=== PATIENT | female | born 1980 | race American Indian/Alaskan Native ===

== ENCOUNTER 2018-11-04 09:35 | Emergency (ER) | payer BC ==
[2018-11-04 09:42] VITALS: BP 138/85
[2018-11-04 12:03] LABS: Basophils % (Auto) 0.3 % (0.0-1.8); Eosinophils # (Auto) 0.1 K/mm3 (0.0-0.4); Hematocrit 27.4 % (30.3-42.9); Hemoglobin 8.4 gm/dl (10.1-14.3); Lymphocytes % (Auto) 28.7 % (13.4-35.0); Mean Corpuscular HGB Conc 31 % (30-34); Monocytes # (Auto) 0.4 K/mm3 (0.0-0.8); Monocytes % (Auto) 6.1 % (0.0-7.3); Platelet Count 414 K/mm3 (140-440); Red Blood Count 4.48 M/mm3 (3.65-5.03)
[2018-11-04 12:05] LABS: Mean Corpuscular Volume 61 fl (79-97); Red Cell Distribution Width 21.2 % (13.2-15.2)
[2018-11-04 12:21] LABS: Bilirubin,Urine NEG (Negative); Blood,Urine NEG (Negative); Color,Urine Yellow (Yellow); Hyaline Casts,Urine 1 /LPF; Mucus,Urine FEW /HPF; Urobilinogen,Urine < 2.0 mg/dL (<2.0)
[2018-11-04 12:23] LABS: BUN/Creatinine Ratio 12; Blood Urea Nitrogen 7 mg/dL (7-17); Calcium 9.8 mg/dL (8.4-10.2); Hemolysis Index 1
--- NOTE | 2018-11-04 13:15 | Emergency Department Report ---
ED General Adult HPI - General Chief complaint: Abdominal Pain Stated complaint: (L) ARM PAIN/STOMACH PAIN/DIABETES Time Seen by Provider: 11/04/18 11:28 Source: patient Mode of arrival: Ambulatory Limitations: No Limitations - History of Present Illness Initial comments: Patient is a 37 her affect female with multiple complaints today. Patient states that she is diabetic and her blood sugar is normally in the 200 range. She states that she chronically has pain in her bilateral arms and legs as a burning sensation. Patient believes she may have some diabetic nerve pain. Patient denies any swelling to the extremities or redness or fever. Patient states she has some mild suprapubic discomfort as well of more so for the last week. Patient has a history of heavy vaginal bleeding segment of fibroids. The patient states that she bled heavily several weeks ago but is currently not bleeding at this time. She has mild nausea. Patient denies any discharge or painful urination. Patient does state that she feels some increased thirst and feels cold and weak at times. Patient denies any chest pain or shortness of breath. Severity scale (0 -10): 8 - Related Data Home Medications Medication Instructions Recorded Confirmed Last Taken Insulin Degludec/Liraglutide 15 mg SQ QPM 04/23/18 04/23/18 Unknown [Xultophy 100 Unit-3.6MG/ml Pen] amLODIPine [Norvasc] 20 mg PO DAILY 04/23/18 04/23/18 Unknown metFORMIN [Glucophage] 1,000 mg PO BID 04/23/18 04/23/18 Unknown Previous Rx's Medication Instructions Recorded Last Taken Type Docusate Sodium [Colace] 100 mg PO BID #30 capsule 11/04/18 Unknown Rx Ferrous Sulfate [Feosol 325 MG tab] 325 mg PO BID #60 tablet 11/04/18 Unknown Rx HYDROcodone/APAP 5-325 [[place] 1 each PO Q4HR PRN #12 tablet 11/04/18 Unknown Rx 5/325] Allergies Allergy/AdvReac Type Severity Reaction Status Date / Time aspirin Allergy Rash Verified 04/23/18 15:26 ED Review of Systems ROS: Stated complaint: (L) ARM PAIN/STOMACH PAIN/DIABETES Other details as noted in HPI Comment: All other systems reviewed and negative ED Past Medical Hx - Past Medical History Previous Medical History?: Yes Hx Hypertension: Yes Hx Diabetes: Yes (oral meds) Hx Headaches / Migraines: Yes Hx Psychiatric Treatment: Yes (anxiety) Hx HIV: No Additional medical history: neuropathy, diabetic gastroparesis. ANEMIA. CARPAL TUNNEL. venous reflux disease. - Surgical History Past Surgical History?: Yes Additional Surgical History: D & C. LEFT GREAT TOE SURGERY - Social History Smoking Status: Never Smoker Substance Use Type: None - Medications Home Medications: Home Medications Medication Instructions Recorded Confirmed Last Taken Type Insulin Degludec/Liraglutide 15 mg SQ QPM 04/23/18 04/23/18 Unknown History [Xultophy 100 Unit-3.6MG/ml Pen] amLODIPine [Norvasc] 20 mg PO DAILY 04/23/18 04/23/18 Unknown History metFORMIN [Glucophage] 1,000 mg PO BID 04/23/18 04/23/18 Unknown History Docusate Sodium [Colace] 100 mg PO BID #30 capsule 11/04/18 Unknown Rx Ferrous Sulfate [Feosol 325 MG tab] 325 mg PO BID #60 tablet 11/04/18 Unknown Rx HYDROcodone/APAP 5-325 [[place] 1 each PO Q4HR PRN #12 tablet 11/04/18 Unknown Rx 5/325] ED Physical Exam - General Limitations: No Limitations General appearance: alert, in no apparent distress - Head Head exam: Present: atraumatic, normocephalic - Eye Eye exam: Present: normal appearance - ENT ENT exam: Present: mucous membranes moist - Neck Neck exam: Present: normal inspection - Respiratory Respiratory exam: Present: normal lung sounds bilaterally. Absent: respiratory distress, wheezes, rales, rhonchi - Cardiovascular Cardiovascular Exam: Present: regular rate, normal rhythm. Absent: systolic murmur, diastolic murmur, rubs, gallop - GI/Abdominal GI/Abdominal exam: Present: soft, normal bowel sounds. Absent: distended, tenderness, guarding, rebound - Extremities Exam Extremities exam: Present: normal inspection - Back Exam Back exam: Present: normal inspection - Neurological Exam Neurological exam: Present: alert, oriented X3 - Psychiatric Psychiatric exam: Present: normal affect, normal mood - Skin Skin exam: Present: warm, dry, intact, normal color. Absent: rash ED Course Vital Signs 11/04/18 09:42 Temperature 97.7 F Pulse Rate 93 H Respiratory 18 Rate Blood Pressure 138/85 Blood Pressure 138/85 [Right] O2 Sat by Pulse 99 Oximetry ED Medical Decision Making - Lab Data Result diagrams: 11/04/18 11:49 11/04/18 11:49 Lab Results 11/04/18 11/04/18 11/04/18 Range/Units 11:49 11:49 11:49 WBC 7.1 (4.5-11.0) K/mm3 RBC 4.48 (3.65-5.03) M/mm3 Hgb 8.4 L (10.1-14.3) gm/dl Hct 27.4 L (30.3-42.9) % MCV 61 L (79-97) fl MCH 19 L (28-32) pg MCHC 31 (30-34) % RDW 21.2 H (13.2-15.2) % Plt Count 414 (140-440) K/mm3 Lymph % (Auto) 28.7 (13.4-35.0) % Lynn % (Auto) 6.1 (0.0-7.3) % Eos % (Auto) 2.0 (0.0-4.3) % Baso % (Auto) 0.3 (0.0-1.8) % Lymph # 2.0 (1.2-5.4) K/mm3 Lynn # 0.4 (0.0-0.8) K/mm3 Eos # 0.1 (0.0-0.4) K/mm3 Baso # 0.0 (0.0-0.1) K/mm3 Seg Neutrophils % 62.9 (40.0-70.0) % Seg Neutrophils # 4.4 (1.8-7.7) K/mm3 Sodium 135 L (137-145) mmol/L Potassium 4.5 (3.6-5.0) mmol/L Chloride 100.7 (98-107) mmol/L Carbon Dioxide 24 (22-30) mmol/L Anion Gap 15 mmol/L BUN 7 (7-17) mg/dL Creatinine 0.6 L (0.7-1.2) mg/dL Estimated GFR > 60 ml/min BUN/Creatinine Ratio 12 % Glucose 244 H (65-100) mg/dL Calcium 9.8 (8.4-10.2) mg/dL HCG, Qual Negative (Negative) Urine Color (Yellow) Urine Turbidity (Clear) Urine pH (5.0-7.0) Ur Specific [place] (1.003-1.030) Urine Protein (Negative) mg/dL Urine Glucose (UA) (Negative) mg/dL Urine Ketones (Negative) mg/dL Urine Blood (Negative) Urine Nitrite (Negative) Urine Bilirubin (Negative) Urine Urobilinogen (<2.0) mg/dL Ur Leukocyte Esterase (Negative) Urine WBC (Auto) (0.0-6.0) /HPF Urine RBC (Auto) (0.0-6.0) /HPF U Epithel Cells (Auto) (0-13.0) /HPF Hyaline Casts /LPF Urine Mucus /HPF 11/04/18 Range/Units 12:11 WBC (4.5-11.0) K/mm3 RBC (3.65-5.03) M/mm3 Hgb (10.1-14.3) gm/dl Hct (30.3-42.9) % MCV (79-97) fl MCH (28-32) pg MCHC (30-34) % RDW (13.2-15.2) % Plt Count (140-440) K/mm3 Lymph % (Auto) (13.4-35.0) % Lynn % (Auto) (0.0-7.3) % Eos % (Auto) (0.0-4.3) % Baso % (Auto) (0.0-1.8) % Lymph # (1.2-5.4) K/mm3 Lynn # (0.0-0.8) K/mm3 Eos # (0.0-0.4) K/mm3 Baso # (0.0-0.1) K/mm3 Seg Neutrophils % (40.0-70.0) % Seg Neutrophils # (1.8-7.7) K/mm3 Sodium (137-145) mmol/L Potassium (3.6-5.0) mmol/L Chloride (98-107) mmol/L Carbon Dioxide (22-30) mmol/L Anion Gap mmol/L BUN (7-17) mg/dL Creatinine (0.7-1.2) mg/dL Estimated GFR ml/min BUN/Creatinine Ratio % Glucose (65-100) mg/dL Calcium (8.4-10.2) mg/dL HCG, Qual (Negative) Urine Color Yellow (Yellow) Urine Turbidity Clear (Clear) Urine pH 6.0 (5.0-7.0) Ur Specific [place] 1.014 (1.003-1.030) Urine Protein 100 mg/dl (Negative) mg/dL Urine Glucose (UA) >=500 (Negative) mg/dL Urine Ketones Neg (Negative) mg/dL Urine Blood Neg (Negative) Urine Nitrite Neg (Negative) Urine Bilirubin Neg (Negative) Urine Urobilinogen < 2.0 (<2.0) mg/dL Ur Leukocyte Esterase Neg (Negative) Urine WBC (Auto) 1.0 (0.0-6.0) /HPF Urine RBC (Auto) 3.0 (0.0-6.0) /HPF U Epithel Cells (Auto) 3.0 (0-13.0) /HPF Hyaline Casts 1 /LPF Urine Mucus Few /HPF - Medical Decision Making Patient's numb sensation and coldness may be secondary to anemia. Patient started on ferrous sulfate twice a day. Patient also given Amaya symptomatic relief for her neuropathy. Patient urged to follow-up with her [employer]AD[employer] and primary care physicians and the patient states discharge. Critical care attestation.: If time is entered above; I have spent that time in minutes in the direct care of this critically ill patient, excluding procedure time. ED Disposition Clinical Impression: Chronic anemia Diabetic neuropathy Qualifiers: Diabetes mellitus type: type 2 Diabetes mellitus complication detail: diabetic autonomic neuropathy Qualified Code(s): E11.43 - Type 2 diabetes mellitus with diabetic autonomic (poly)neuropathy Disposition: - TO HOME OR SELFCARE Is pt being admited?: No Does the pt Need Aspirin: No Condition: Stable Instructions: Diabetes Mellitus Type 2 in Adults (ED), Diabetic Neuropathy (ED), Iron Deficiency Anemia (ED), Iron Rich Diet (ED) Referrals: RENETTA MCNAMARA MD [Primary Care Provider] - 3-5 Days Time of Disposition: 13:15
== END 2018-11-04 13:20 | disposition home or self-care (01) ==
LOC: MERGE 09:35 → ED 09:35
DX: E11.43 Type 2 diabetes mellitus with diabetic autonomic (poly)neuropathy (principal); I10 Essential (primary) hypertension; G43.909 Migraine, unspecified, not intractable, without status migrainosus; F41.9 Anxiety disorder, unspecified; K31.84 Gastroparesis; Z79.4 Long term (current) use of insulin; Z88.6 Allergy status to analgesic agent; Z86.2 Personal history of diseases of the blood and blood-forming organs and certain disorders involving the immune mechanism
CPT/HCPCS: 36415; 80048; 81001; 82962; 84703; 85025; 99283

== ENCOUNTER 2018-11-23 17:28 | Emergency (ER) | payer BC ==
[2018-11-23 17:44] VITALS: BP 153/79
--- NOTE | 2018-11-23 17:48 | Emergency Department Report ---
Blank Doc - Documentation Documentation: Patient here reports anxiety attacks. She reports stress and panic attack today. 1 at work and 1 at home . 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 H/O HTN,Diabetes, anemia. CV;P= 109. RRR Lungs:CTAB EXT- no tremors BG= 386 and reports that her BG is always elevated. Takes metformin A/P hyperglycemia- BG 386 anxiety-stable Pt screened by medical provider and orders placed
[2018-11-23 18:23] LABS: Bacteria,Urine 4+ /HPF (Negative); Bilirubin,Urine NEG (Negative); Blood,Urine NEG (Negative); Color,Urine Yellow (Yellow); Hyaline Casts,Urine 3 /LPF; Mucus,Urine FEW /HPF; Urobilinogen,Urine < 2.0 mg/dL (<2.0)
[2018-11-23] MEDS ORDERED: VISTARIL PO ONE (19:29)
--- NOTE | 2018-11-23 19:34 | Emergency Department Report ---
ED General Adult HPI - General Chief complaint: Anxiety Stated complaint: ANXIETY Time Seen by Provider: 11/23/18 17:43 Source: patient Mode of arrival: Ambulatory Limitations: No Limitations - History of Present Illness Initial comments: As well as is a 37-year-old female comes to the ER today complaining of anxiety while driving. She states that she had been on Lexapro probe. The due to allergic reaction. Patient is a diabetic and was incidentally found to have hyperglycemia of 386 in triage. Upon arrival to fast track she is over her anxiety attack. -: Sudden Treatments Prior to Arrival: none - Related Data Previous Rx's Medication Instructions Recorded Last Taken Type hydrOXYzine PAMOATE [Vistaril] 25 mg PO Q6HR PRN #12 capsule 11/23/18 Unknown Rx Allergies Allergy/AdvReac Type Severity Reaction Status Date / Time aspirin Allergy Unknown Verified 06/20/18 09:31 ED Review of Systems ROS: Stated complaint: ANXIETY Other details as noted in HPI Comment: All other systems reviewed and negative Constitutional: denies: chills, fever Eyes: denies: eye pain ENT: denies: ear pain Respiratory: denies: cough Cardiovascular: denies: palpitations Endocrine: denies: intolerance to cold Gastrointestinal: denies: nausea Genitourinary: denies: urgency Musculoskeletal: denies: back pain Skin: denies: rash Neurological: denies: headache Psychiatric: as per HPI, anxiety Hematological/Lymphatic: denies: easy bleeding ED Past Medical Hx - Past Medical History Previous Medical History?: Yes Hx Hypertension: Yes Hx Diabetes: Yes Additional medical history: Uterine fibroids, anemia, blood transfusion - Surgical History Past Surgical History?: No - Family History Family history: no significant - Social History Smoking Status: Never Smoker Substance Use Type: None - Medications Home Medications: Home Medications Medication Instructions Recorded Confirmed Last Taken Type hydrOXYzine PAMOATE [Vistaril] 25 mg PO Q6HR PRN #12 capsule 11/23/18 Unknown Rx ED Physical Exam - General Limitations: No Limitations General appearance: alert - Head Head exam: Present: atraumatic, normocephalic - Eye Eye exam: Present: normal appearance, PERRL - ENT ENT exam: Present: mucous membranes moist - Neck Neck exam: Present: normal inspection - Respiratory Respiratory exam: Present: normal lung sounds bilaterally - Cardiovascular Cardiovascular Exam: Present: regular rate - GI/Abdominal GI/Abdominal exam: Present: soft - Rectal Rectal exam: Present: deferred - Extremities Exam Extremities exam: Present: normal inspection, full ROM - Back Exam Back exam: Present: normal inspection, full ROM - Neurological Exam Neurological exam: Present: alert, oriented X3 - Psychiatric Psychiatric exam: Present: normal affect, normal mood - Skin Skin exam: Present: warm, dry, intact ED Course Vital Signs 11/23/18 17:43 Temperature 98.3 F Pulse Rate 109 H Respiratory 16 Rate Blood Pressure 153/79 O2 Sat by Pulse 98 Oximetry ED Medical Decision Making - Lab Data Result diagrams: 11/23/18 18:51 11/23/18 18:51 - Medical Decision Making at the time of my exam pt was over her anxiety attack. this is chronic for her she sees Dr Fisher pt is ambulatory nontoxic and taking po she is wanting to dc home Labs 11/23/18 11/23/18 17:46 18:03 POC Glucose 386 H Urine Color Yellow Urine Turbidity Clear Urine pH 5.0 Ur Specific [place] 1.025 Urine Protein 100 mg/dl Urine Glucose (UA) >=500 Urine Ketones Neg Urine Blood Neg Urine Nitrite Neg Urine Bilirubin Neg Urine Urobilinogen < 2.0 Ur Leukocyte Esterase Neg Urine WBC (Auto) 1.0 Urine RBC (Auto) 4.0 U Epithel Cells (Auto) 1.0 Urine Bacteria (Auto) 4+ Hyaline Casts 3 Urine Mucus Few HR on arrival to fast track 100 ua noted labs pending medicated with SQ insulin and vistaril will dc home with a dc plan of care and pcp follow up on Sunday Critical care attestation.: If time is entered above; I have spent that time in minutes in the direct care of this critically ill patient, excluding procedure time. ED Disposition Clinical Impression: DM hyperosmolarity type II, uncontrolled, Hyperglycemia, Anxiety Disposition: DC-01 TO HOME OR SELFCARE Is pt being admited?: No Does the pt Need Aspirin: No Condition: Stable Instructions: Diabetes Mellitus Type 2 in Adults (ED) Additional Instructions: HYDRATE WELL WITH WATER FOLLOW UP PCP on sunday ACTIVITY TOLERATED Diabetic diet MED ORDERED take you metformin as instructed Prescriptions: hydrOXYzine PAMOATE [Vistaril] 25 mg PO Q6HR PRN #12 capsule PRN Reason: Anxiety Referrals: [facility] [Outside] - 3-5 Days Time of Disposition: 19:33
[2018-11-23 19:48] LABS: Basophils # (Auto) 0.1 K/mm3 (0.0-0.1); Basophils % (Auto) 0.5 % (0.0-1.8); Eosinophils # (Auto) 0.2 K/mm3 (0.0-0.4); Eosinophils % (Auto) 1.6 % (0.0-4.3); Hematocrit 25.1 % (30.3-42.9); Hemoglobin 7.7 gm/dl (10.1-14.3); Lymphocytes # (Auto) 3.5 K/mm3 (1.2-5.4); Lymphocytes % (Auto) 34.1 % (13.4-35.0); Mean Corpuscular HGB Conc 31 % (30-34); Monocytes # (Auto) 0.6 K/mm3 (0.0-0.8); Monocytes % (Auto) 6.1 % (0.0-7.3); Platelet Count 582 K/mm3 (140-440); Red Blood Count 4.22 M/mm3 (3.65-5.03)
[2018-11-23 19:57] LABS: Mean Corpuscular Volume 60 fl (79-97)
[2018-11-23 19:58] LABS: Alanine Aminotransferase 14 units/L (7-56); Albumin 4.1 g/dL (3.9-5); BUN/Creatinine Ratio 12; Blood Urea Nitrogen 11 mg/dL (7-17); Calcium 9.7 mg/dL (8.4-10.2); Hemolysis Index 2; Red Cell Distribution Width 20.6 % (13.2-15.2)
[2018-11-23] MEDS ORDERED: HumuLIN R SUB-Q ONE (20:21)
[2018-11-23] MEDS ORDERED: HumuLIN R ONE (20:25)
== END 2018-11-23 20:24 | disposition home or self-care (01) ==
LOC: ED 17:28
DX: E11.65 Type 2 diabetes mellitus with hyperglycemia (principal); E11.00 Type 2 diabetes mellitus with hyperosmolarity without nonketotic hyperglycemic-hyperosmolar coma (NKHHC); I10 Essential (primary) hypertension; Z86.2 Personal history of diseases of the blood and blood-forming organs and certain disorders involving the immune mechanism
CPT/HCPCS: 36415; 80053; 81001; 82962; 83690; 85025; 96372; 99283; J1815; Q0177

== ENCOUNTER 2018-12-29 19:41 | Emergency (ER) | payer BC ==
[2018-12-29 19:55] VITALS: BP 166/92
[2018-12-29] MEDS ORDERED: LOVENOX SUB-Q STA (23:17)
--- NOTE | 2018-12-29 23:24 | Emergency Department Report ---
ED General Adult HPI - General Chief complaint: Extremity Injury, Lower Stated complaint: POST LEG SURGERY PAIN Time Seen by Provider: 12/29/18 23:16 Source: patient Mode of arrival: Ambulatory Limitations: No Limitations - History of Present Illness Initial comments: 38-year-old -[place] female with a past medical history of diabetes, hypertension, peripheral vascular disease. 2 weeks status post a venous surgical procedure as reported by the patient to resolve what sounds like claudication type symptoms. Since that time she's been having she was doing well for the first few days. Denies noticing some pain to both legs, right greater than left, and occasional swelling as well. She is worried she may have had have a blood clot in her right leg, mostly to be evaluated. She has an appointment with the vascular surgeon in the morning for evaluation of her left lower extremity with an ultrasound, but not the right, so wanted to be safe. She reports no chest pain palpitations, no fever, chills, sweats, chest pain, nausea -: Gradual Radiation: non-radiation Quality: dull Consistency: constant Improves with: none Worsens with: none - Related Data Home Medications Medication Instructions Recorded Confirmed Last Taken Insulin Degludec/Liraglutide 15 mg SQ QPM 04/23/18 04/23/18 Unknown [Xultophy 100 Unit-3.6MG/ml Pen] amLODIPine [Norvasc] 20 mg PO DAILY 04/23/18 04/23/18 Unknown metFORMIN [Glucophage] 1,000 mg PO BID 04/23/18 04/23/18 Unknown Previous Rx's Medication Instructions Recorded Last Taken Type Docusate Sodium [Colace] 100 mg PO BID #30 capsule 11/04/18 Unknown Rx Ferrous Sulfate [Feosol 325 MG tab] 325 mg PO BID #60 tablet 11/04/18 Unknown Rx HYDROcodone/APAP 5-325 [[place] 1 each PO Q4HR PRN #12 tablet 11/04/18 Unknown Rx 5/325] hydrOXYzine PAMOATE [Vistaril] 25 mg PO Q6HR PRN #12 capsule 11/23/18 Unknown Rx Allergies Allergy/AdvReac Type Severity Reaction Status Date / Time aspirin Allergy Swelling Verified 12/29/18 19:45 ED Review of Systems ROS: Stated complaint: POST LEG SURGERY PAIN Other details as noted in HPI Constitutional: denies: chills, fever Eyes: denies: eye pain, eye discharge, vision change ENT: denies: ear pain, throat pain Respiratory: denies: cough, shortness of breath, wheezing Cardiovascular: denies: chest pain, palpitations Endocrine: no symptoms reported Gastrointestinal: denies: abdominal pain, nausea, diarrhea Genitourinary: denies: urgency, dysuria, discharge Musculoskeletal: denies: back pain, joint swelling, arthralgia Skin: denies: rash, lesions Neurological: denies: headache, weakness, paresthesias Psychiatric: denies: anxiety, depression Hematological/Lymphatic: denies: easy bleeding, easy bruising ED Past Medical Hx - Past Medical History Hx Hypertension: Yes Hx Diabetes: Yes Hx Headaches / Migraines: Yes Hx Psychiatric Treatment: Yes (anxiety) Hx HIV: No Additional medical history: Uterine fibroids, anemia, blood transfusion,venous reflux disease - Surgical History Additional Surgical History: D & C. LEFT GREAT TOE SURGERY, bilateral lower venous ablations - Social History Smoking Status: Never Smoker Substance Use Type: None - Medications Home Medications: Home Medications Medication Instructions Recorded Confirmed Last Taken Type Insulin Degludec/Liraglutide 15 mg SQ QPM 04/23/18 04/23/18 Unknown History [Xultophy 100 Unit-3.6MG/ml Pen] amLODIPine [Norvasc] 20 mg PO DAILY 04/23/18 04/23/18 Unknown History metFORMIN [Glucophage] 1,000 mg PO BID 04/23/18 04/23/18 Unknown History Docusate Sodium [Colace] 100 mg PO BID #30 capsule 11/04/18 Unknown Rx Ferrous Sulfate [Feosol 325 MG tab] 325 mg PO BID #60 tablet 11/04/18 Unknown Rx HYDROcodone/APAP 5-325 [[place] 1 each PO Q4HR PRN #12 tablet 11/04/18 Unknown Rx 5/325] hydrOXYzine PAMOATE [Vistaril] 25 mg PO Q6HR PRN #12 capsule 11/23/18 Unknown Rx ED Physical Exam - General Limitations: No Limitations General appearance: alert, in no apparent distress - Head Head exam: Present: atraumatic, normocephalic - Eye Eye exam: Present: normal appearance, PERRL - ENT ENT exam: Present: normal exam, mucous membranes moist - Neck Neck exam: Present: normal inspection - Respiratory Respiratory exam: Present: normal lung sounds bilaterally. Absent: respiratory distress, wheezes, rales, rhonchi, chest wall tenderness, accessory muscle use - Cardiovascular Cardiovascular Exam: Present: regular rate, normal rhythm. Absent: systolic murmur, diastolic murmur, rubs, gallop - GI/Abdominal GI/Abdominal exam: Present: soft, normal bowel sounds - Extremities Exam Extremities exam: Present: normal inspection, full ROM, tenderness (has some discomfort to the lower extremities with palpation in the calf region, but no cord sign. No Homans sign. Pulses are 2+2 dorsalis pedis and posterior tibialis and popliteal region. No cellulitis is noted. No wounds.) - Back Exam Back exam: Present: normal inspection. Absent: CVA tenderness (R), CVA tenderness (L) - Neurological Exam Neurological exam: Present: alert, oriented X3, CN II-XII intact - Psychiatric Psychiatric exam: Present: normal affect, normal mood - Skin Skin exam: Present: warm, dry, intact, normal color. Absent: rash ED Course Vital Signs 12/29/18 19:53 Temperature 98.1 F Pulse Rate 97 H Respiratory 18 Rate Blood Pressure 166/92 O2 Sat by Pulse 100 Oximetry ED Medical Decision Making - Medical Decision Making Past Pain this evening were about a DVT. However nighttime quality assurance technician does not have capability of performing any vascular studies for this reason, the wound initially distended, Lovenox protocol with a M ultrasound. She does are to have appointment for ultrasound in the morning but just in case there is an issue a prescription will be provided with her also that she can come here for. If all else fails. Critical care attestation.: If time is entered above; I have spent that time in minutes in the direct care of this critically ill patient, excluding procedure time. ED Disposition Clinical Impression: DVT prophylaxis, Leg pain Disposition: DC-01 TO HOME OR SELFCARE Is pt being admited?: No Does the pt Need Aspirin: No Condition: Stable Additional Instructions: Keep your appointment tomorrow with neurovascular doctor for evaluation of the lower extremity for DVT as we discussed. Referrals: RENETTA MCNAMARA MD [Primary Care Provider] - 3-5 Days
== END 2018-12-30 00:34 | disposition home or self-care (01) ==
LOC: ED 19:41
DX: T81.72XA Complication of vein following a procedure, not elsewhere classified, initial encounter (principal); M79.604 Pain in right leg; M79.605 Pain in left leg; I10 Essential (primary) hypertension; E11.9 Type 2 diabetes mellitus without complications; G43.909 Migraine, unspecified, not intractable, without status migrainosus; Z79.4 Long term (current) use of insulin; Z88.6 Allergy status to analgesic agent
CPT/HCPCS: 96372; 99282; J1650

== ENCOUNTER 2019-03-01 10:23 | Inpatient (IN) | payer BC, OTHER ==
[2019-03-01] MEDS ORDERED: PEPCID PO ONE (11:00)
[2019-03-01] MEDS ORDERED: XANAX PO ONE (11:00)
[2019-03-01] MEDS ORDERED: CARAFATE PO ONE (11:00)
[2019-03-01 11:03] LABS: Basophils # (Auto) 0.1 K/mm3 (0.0-0.1); Basophils % (Auto) 0.7 % (0.0-1.8); Eosinophils # (Auto) 0.2 K/mm3 (0.0-0.4); Eosinophils % (Auto) 2.2 % (0.0-4.3); Hematocrit 20.6 % (30.3-42.9); Hemoglobin 6.1 gm/dl (10.1-14.3); Lymphocytes # (Auto) 2.1 K/mm3 (1.2-5.4); Mean Corpuscular HGB Conc 29 % (30-34); Monocytes # (Auto) 0.5 K/mm3 (0.0-0.8); Monocytes % (Auto) 6.5 % (0.0-7.3); Platelet Count 506 K/mm3 (140-440); Red Blood Count 3.69 M/mm3 (3.65-5.03)
[2019-03-01 11:06] LABS: Mean Corpuscular Volume 56 fl (79-97); Red Cell Distribution Width 23.3 % (13.2-15.2)
--- NOTE | 2019-03-01 11:06 | Emergency Department Report ---
ED General Adult HPI - General Chief complaint: Chest Pain Stated complaint: ANXIETY Time Seen by Provider: 03/01/19 10:48 Source: patient, RN notes reviewed, old records reviewed Mode of arrival: Ambulatory Limitations: No Limitations - History of Present Illness Initial comments: Primary care Dr.: Dr. Fisher Cardiology: Dr. Anahi Strak Past medical history: Morbid obesity, type 2 diabetes, hypertension, peripheral artery disease. This is a 38-year-old female. The patient is not known to this provider previously. Patient presents to the ER today with a complaint of "panic attack." She further clarifies that she is having nontraumatic epigastric and left upper quadrant pain, chest pressure, shortness of breath, no vomiting, no diaphoresis, no bright red blood per rectum, no hematemesis, denies DVT, pulmonary embolus or risk factors. Endorses malaise and fatigue. Symptoms are constant since this morning, did not radiate anywhere, and did not have exacerbating or factors. -: Gradual Location: chest, abdomen Radiation: non-radiation Quality: aching Consistency: constant Improves with: none Worsens with: none - Related Data Home Medications Medication Instructions Recorded Confirmed Last Taken Insulin Degludec/Liraglutide 15 mg SQ QPM 04/23/18 03/01/19 Unknown [Xultophy 100 Unit-3.6MG/ml Pen] amLODIPine [Norvasc] 20 mg PO DAILY 04/23/18 03/01/19 Unknown metFORMIN [Glucophage] 1,000 mg PO BID 04/23/18 03/01/19 Unknown Aspirin BABY CHEW TAB 81 mg PO DAILY 03/01/19 03/01/19 Unknown Escitalopram 10 mg PO DAILY 03/01/19 03/01/19 Unknown Ferrous Sulfate 65 mg PO DAILY 03/01/19 03/01/19 Unknown Losartan Potassium 25 mg PO DAILY 03/01/19 03/01/19 Unknown Allergies Allergy/AdvReac Type Severity Reaction Status Date / Time aspirin Allergy Swelling Verified 03/01/19 10:24 ED Review of Systems ROS: Stated complaint: ANXIETY Other details as noted in HPI Constitutional: malaise. denies: fever Eyes: denies: eye discharge Respiratory: shortness of breath Cardiovascular: chest pain Gastrointestinal: denies: vomiting, hematemesis, melena, hematochezia Genitourinary: denies: dysuria Musculoskeletal: arthralgia, myalgia Skin: denies: lesions Neurological: weakness Psychiatric: anxiety ED Past Medical Hx - Past Medical History Hx Hypertension: Yes Hx Diabetes: Yes Hx Headaches / Migraines: Yes Hx Psychiatric Treatment: Yes (anxiety) Hx HIV: No Additional medical history: Uterine fibroids, anemia, blood transfusion,venous reflux disease - Surgical History Additional Surgical History: D & C. LEFT GREAT TOE SURGERY, bilateral lower venous ablations - Social History Smoking Status: Former Smoker - Medications Home Medications: Home Medications Medication Instructions Recorded Confirmed Last Taken Type Insulin Degludec/Liraglutide 15 mg SQ QPM 04/23/18 03/01/19 Unknown History [Xultophy 100 Unit-3.6MG/ml Pen] amLODIPine [Norvasc] 20 mg PO DAILY 04/23/18 03/01/19 Unknown History metFORMIN [Glucophage] 1,000 mg PO BID 04/23/18 03/01/19 Unknown History Aspirin BABY CHEW TAB 81 mg PO DAILY 03/01/19 03/01/19 Unknown History Escitalopram 10 mg PO DAILY 03/01/19 03/01/19 Unknown History Ferrous Sulfate 65 mg PO DAILY 03/01/19 03/01/19 Unknown History Losartan Potassium 25 mg PO DAILY 03/01/19 03/01/19 Unknown History ED Physical Exam - General Limitations: No Limitations General appearance: alert, obese - Head Head exam: Present: atraumatic, normocephalic - Eye Eye exam: Present: normal appearance, EOMI. Absent: nystagmus - ENT ENT exam: Present: normal exam, normal orophraynx, mucous membranes moist, normal external ear exam - Neck Neck exam: Present: normal inspection, full ROM. Absent: tenderness, meningismus - Respiratory Respiratory exam: Present: decreased breath sounds. Absent: wheezes, rhonchi, stridor - Cardiovascular Cardiovascular Exam: Present: regular rate, normal rhythm, normal heart sounds. Absent: bradycardia, tachycardia, irregular rhythm, systolic murmur, diastolic murmur, rubs, gallop - GI/Abdominal GI/Abdominal exam: Present: soft. Absent: distended, tenderness, guarding, rebound, rigid, pulsatile mass - Rectal Rectal exam: Present: normal inspection, heme (-) stool, other (chaperoned by nurse Latasha Valdez). Absent: heme (+) stool, black stool, bloody stool - Extremities Exam Extremities exam: Present: normal inspection, pedal edema, other (2+ pulses noted in the bilateral upper, lower extremities. Compartments soft. No long bony tenderness. The pelvis is stable.). Absent: calf tenderness - Back Exam Back exam: Present: normal inspection, full ROM. Absent: tenderness, CVA tenderness (R), CVA tenderness (L), paraspinal tenderness, vertebral tenderness - Neurological Exam Neurological exam: Present: alert, oriented X3, other (Extraocular movements intact. Tongue midline. No facial droop. Facial sensation intact to light touch in the V1, V2, V3 distribution bilaterally. 5 and 5 strength in 4 extremities.. Sensation is intact to light touch in 4 extremities.). Absent: motor sensory deficit - Psychiatric Psychiatric exam: Present: normal affect, normal mood - Skin Skin exam: Present: warm, dry, intact, normal color. Absent: rash ED Course Vital Signs 03/01/19 03/01/19 10:30 12:37 Temperature 98.5 F Pulse Rate 98 H 93 H Respiratory 18 16 Rate Blood Pressure 194/92 Blood Pressure 130/73 [Left] O2 Sat by Pulse 98 93 Oximetry - Reevaluation(s) Reevaluation #1: 03/01/19 12:12 Differential diagnosis, including not limited to: Symptomatic anemia, congestive heart failure, pulmonary hypertension, pulmonary embolism, acute coronary syndrome, GERD, gastritis, pneumonia Assessment and plan: 38-year-old female, morbidly obese, history of peripheral artery disease, diabetes and hypertension, moderate risk by heart score risk stratification tool, no recent cardiac risk stratification, somewhat hypoxic on room air, 93%, likely with undiagnosed sleep apnea, pulmonary hypertension, probable right-sided cardiac dysfunction. Also guaiac negative from below, with no history of GI bleed. She is amenable to packed red blood cell transfusion. We will treat her symptoms, initiate Lasix therapy, initiate antihypertensive therapy, obtain CT scan of the chest to exclude pulmonary embolism (patient seen here in December for lower extremity swelling, was instructed to have DVT study but was noncompliant). D-dimer also elevated. Patient amenable to packed red blood cell transfusion. She is amenable to hospitalization. I have contacted her private gambling counsellor, Dr. Anahi Stark who is amenable to following in consultation, and indicates his grou p will be able to follow on the inpatient side of things. We will contact the medical team once her initial workup is incomplete Reevaluation #2: 03/01/19 12:49 CT scan of the chest is negative for acute pulmonary embolism. Edema is suggested. Hospital physician, Dr. Felicitas Rosales, accepts the patient to the medical service. ED Medical Decision Making - Lab Data Result diagrams: 03/01/19 10:39 03/01/19 10:39 Vital Signs 03/01/19 10:30 Temperature 98.5 F Pulse Rate 98 H Respiratory 18 Rate Blood Pressure 194/92 O2 Sat by Pulse 98 Oximetry Lab Results 03/01/19 03/01/19 03/01/19 Range/Units 10:39 10:39 10:39 WBC 7.7 (4.5-11.0) K/mm3 RBC 3.69 (3.65-5.03) M/mm3 Hgb 6.1 L (10.1-14.3) gm/dl Hct 20.6 L (30.3-42.9) % MCV 56 L (79-97) fl MCH 16 L (28-32) pg MCHC 29 L (30-34) % RDW 23.3 H (13.2-15.2) % Plt Count 506 H (140-440) K/mm3 Lymph % (Auto) 27.0 (13.4-35.0) % [place] % (Auto) 6.5 (0.0-7.3) % Eos % (Auto) 2.2 (0.0-4.3) % Baso % (Auto) 0.7 (0.0-1.8) % Lymph # 2.1 (1.2-5.4) K/mm3 [place] # 0.5 (0.0-0.8) K/mm3 Eos # 0.2 (0.0-0.4) K/mm3 Baso # 0.1 (0.0-0.1) K/mm3 Seg Neutrophils % 63.6 (40.0-70.0) % Seg Neutrophils # 4.9 (1.8-7.7) K/mm3 D-Dimer (0-234) ng/mlDDU Sodium 134 L (137-145) mmol/L Potassium 3.9 (3.6-5.0) mmol/L Chloride 98.8 (98-107) mmol/L Carbon Dioxide 22 (22-30) mmol/L Anion Gap 17 mmol/L BUN 6 L (7-17) mg/dL Creatinine 0.6 L (0.7-1.2) mg/dL Estimated GFR > 60 ml/min BUN/Creatinine Ratio 10 % Glucose 185 H (65-100) mg/dL Calcium 9.0 (8.4-10.2) mg/dL Magnesium 2.00 (1.7-2.3) mg/dL Total Creatine Kinase 130 (30-135) units/L Troponin T < 0.010 (0.00-0.029) ng/mL 03/01/19 Range/Units 11:06 WBC (4.5-11.0) K/mm3 RBC (3.65-5.03) M/mm3 Hgb (10.1-14.3) gm/dl Hct (30.3-42.9) % MCV (79-97) fl MCH (28-32) pg MCHC (30-34) % RDW (13.2-15.2) % Plt Count (140-440) K/mm3 Lymph % (Auto) (13.4-35.0) % [place] % (Auto) (0.0-7.3) % Eos % (Auto) (0.0-4.3) % Baso % (Auto) (0.0-1.8) % Lymph # (1.2-5.4) K/mm3 [place] # (0.0-0.8) K/mm3 Eos # (0.0-0.4) K/mm3 Baso # (0.0-0.1) K/mm3 Seg Neutrophils % (40.0-70.0) % Seg Neutrophils # (1.8-7.7) K/mm3 D-Dimer 778.67 H (0-234) ng/mlDDU Sodium (137-145) mmol/L Potassium (3.6-5.0) mmol/L Chloride (98-107) mmol/L Carbon Dioxide (22-30) mmol/L Anion Gap mmol/L BUN (7-17) mg/dL Creatinine (0.7-1.2) mg/dL Estimated GFR ml/min BUN/Creatinine Ratio % Glucose (65-100) mg/dL Calcium (8.4-10.2) mg/dL Magnesium (1.7-2.3) mg/dL Total Creatine Kinase (30-135) units/L Troponin T (0.00-0.029) ng/mL - EKG Data -: EKG Interpreted by [place] EKG shows normal: sinus rhythm Rate: normal - EKG Data 03/01/19 12:14 This is a sinus rhythm, 93 bpm, normal axis, artifact, QTC within normal limits, low voltage in the lateral leads, abnormal EKG, not consistent with ST elevation myocardial infarction, appears unchanged from prior EKG from June 2017. - Radiology Data Radiology results: report reviewed, image reviewed int Report Referring Physician: DEBORAH CASTILLO Patient Name: CHRIST ROBERTS Date of : 1980 Sex: Female Report Date: 2019-03-01 Report Status: Finalized Findings [facility] [address] [place] [address] XRay Report Signed Patient: CHRIST ROBERTS MR#: [id number] : 1980 Acct:[id number] Age/Sex: 38 / F ADM Date: 03/01/19 Loc: ED Attending Dr: Ordering Physician: DEBORAH CASTILLO MD Date of Service: 03/01/19 Procedure(s): XR chest routine 2V Accession Number(s): [id number] cc: DEBORAH CASTILLO MD Fluoro Time In Minutes: CHEST 2 VIEWS INDICATION / CLINICAL INFORMATION: Chest pain and shortness of breath. COMPARISON: None available. FINDINGS: SUPPORT DEVICES: None. HEART / MEDIASTINUM: The heart size is borderline. There is mild prominence of the central pulmonary vessels. LUNGS / PLEURA: There is moderate diffuse interstitial lung disease with slight thickening of the fissures. No pneumothorax. ADDITIONAL FINDINGS: No significant additional findings. IMPRESSION: Moderate diffuse interstitial lung disease is probably related to pu lmonary edema. Interstitial pneumonia is considered less likely. Signer Name: Misbah Tracy MD Signed: 03/01/2019 11:28 AM Workstation Name: [id number] Transcribed By: RT Dictated By: Misbah Tracy MD Electronically Authenticated By: Misbah Tracy MD Signed Date/Time: 03/01/19 1128 Print Report Referring Physician: DEBORAH CASTILLO Patient Name: CHRIST ROBERTS Date of : 1980 Sex: Female Report Date: 2019-03-01 Report Status: Finalized Findings [facility] [address] [place] [address] Cat Scan Report Signed Patient: CHRIST ROBERTS MR#: [id number] : 1980 Acct:[id number] Age/Sex: 38 / F ADM Date: 03/01/19 Loc: ED Attending Dr: Ordering Physician: DEBORAH CASTILLO MD Date of Service: 03/01/19 Procedure(s): CT angio chest Accession Number(s): [id number] cc: DEBORAH CASTILLO MD CTA chest with contrast INDICATION : sob cp. 2 panic attacks starting today TECHNIQUE: Axial imaging performed through the chest, with contrast bolus timing set to maximize opacification of the pulmonary arteries. 3-plane MIP reformatted images were obtained. All CT scans at this location are performed using CT dose reduction for ALARA by means of automated exposure control. 100 mL of intravenous contrast administered. COMPARISON: None FINDINGS: Bolus: Contrast bolus timing is adequate. PTE: No filling defect is present to suggest PTE. Mediastinum: Heart and great vessels appear normal. No pathologic mediastinal adenopathy. Lungs: There is mild interstitial edema with small bilateral layering pleural effusions. Upper abdomen: Limited imaging of the upper abdomen shows nothing acute. Bones: Degenerative changes in the spine with nothing acute. IMPRESSION: 1. Negative for PTE. 2. Mild interstitial edema with small bilateral layering effusions. Signer Name: Chai Frederick MD Signed: 03/01/2019 12:36 PM Workstation Name: [id number] Transcribed By: ULISSES Dictated By: Chai Frederick MD Electronically Authenticated By: Chai Frederick MD Signed Date/Time: 03/01/19 1236 Critical Care Time: Yes Critical care time in (mins) excluding proc time.: 35 Critical care attestation.: If time is entered above; I have spent that time in minutes in the direct care of this critically ill patient, excluding procedure time. ED Disposition Clinical Impression: Hypertensive urgency, Symptomatic anemia Dyspnea Qualifiers: Dyspnea type: shortness of breath Qualified Code(s): R06.02 - Shortness of breath Disposition: DC-09 OP ADMIT IP TO THIS HOSP Is pt being admited?: Yes Condition: Good Referrals: PRIMARY CARE, [Referring] - 3-5 Days
[2019-03-01 11:25] LABS: BUN/Creatinine Ratio 10; Blood Urea Nitrogen 6 mg/dL (7-17); Hemolysis Index 0
--- NOTE | 2019-03-01 11:32 | XRay Report ---
CHEST 2 VIEWS INDICATION / CLINICAL INFORMATION: Chest pain and shortness of breath. COMPARISON: None available. FINDINGS: SUPPORT DEVICES: None. HEART / MEDIASTINUM: The heart size is borderline. There is mild prominence of the central pulmonary vessels. LUNGS / PLEURA: There is moderate diffuse interstitial lung disease with slight thickening of the fis sures. No pneumothorax. ADDITIONAL FINDINGS: No significant additional findings. IMPRESSION: Moderate diffuse interstitial lung disease is probably related to pulmonary edema. Inters titial pneumonia is considered less likely. Signer Name: Misbah Tracy MD Signed: 03/01/2019 11:28 AM Workstation Name: [id number]
[2019-03-01] MEDS ORDERED: NACL 0.9% 500 ML 500 ML IV ONE ×3 (11:51→21:55)
[2019-03-01] MEDS ORDERED: LASIX IV ONE (12:08)
[2019-03-01] MEDS: NORVASC PO SCH (12:28)
--- NOTE | 2019-03-01 12:41 | Cat Scan Report ---
CTA chest with contrast INDICATION : sob cp. 2 panic attacks starting today TECHNIQUE: Axial imaging performed through the chest, with contrast bolus timing set to maximize opa cification of the pulmonary arteries. 3-plane MIP reformatted images were obtained. All CT scans at this location are performed using CT dose reduction for ALARA by means of automated exposure control. 100 mL of intravenous contrast administered. COMPARISON: None FINDINGS: Bolus: Contrast bolus timing is adequate. PTE: No filling defect is present to suggest PTE. Mediastinum: Heart and great vessels appear normal. No pathologic mediastinal adenopathy. Lungs: There is mild interstitial edema with small bilateral layering pleural effusions. Upper abdomen: Limited imaging of the upper abdomen shows nothing acute. Bones: Degenerative changes in the spine with nothing acute. IMPRESSION: 1. Negative for PTE. 2. Mild interstitial edema with small bilateral layering effusions. Signer Name: Chai Frederick MD Signed: 03/01/2019 12:36 PM Workstation Name: [id number]
--- NOTE | 2019-03-01 21:38 | History and Physical Report ---
History of Present Illness Date of examination: 03/01/19 Date of admission: 03/01/19 12:50 Chief complaint: Chest pain of one day Panic attacks X1 History of present illness: 38-year-old -Swiss female with past medical history significant for hypertension, panic attacks and insulin-dependent diabetes and depression comes in for left-sided chest pressure of 1 day duration. Also epigastric discomfort and shortness of breath. No vomiting or diaphoresis or palpitations. Patient panic attack since couple of hours. Better now No exacerbating or relieving factors Past Medical History Hypertension: Yes Diabetes: Yes Headaches / Migraines: Yes Psychiatric Treatment: Yes (anxiety) Additional medical history: Uterine fibroids, anemia, blood transfusion,venous reflux disease Surgical History Additional Surgical History: D & C. LEFT GREAT TOE SURGERY, bilateral lower venous ablations Social History Smoking Status: Former Smoker Family history Htn Medications Home Medications: Home Medications Medication Instructions Recorded Confirmed Last Taken Type Insulin Degludec/Liraglutide 15 mg SQ QPM 04/23/18 03/01/19 Unknown History [Xultophy 100 Unit-3.6MG/ml Pen] amLODIPine [Norvasc] 20 mg PO DAILY 04/23/18 03/01/19 Unknown History metFORMIN [Glucophage] 1,000 mg PO BID 04/23/18 03/01/19 Unknown History Aspirin BABY CHEW TAB 81 mg PO DAILY 03/01/19 03/01/19 Unknown History Escitalopram 10 mg PO DAILY 03/01/19 03/01/19 Unknown History Ferrous Sulfate 65 mg PO DAILY 03/01/19 03/01/19 Unknown History Losartan Potassium 25 mg PO DAILY 03/01/19 03/01/19 Unknown History Review of Systems ROS: Stated complaint: ANXIETY Other details as noted in HPI Constitutional: malaise. denies: fever Eyes: denies: eye discharge Respiratory: shortness of breath Cardiovascular: chest pain Gastrointestinal: denies: vomiting, hematemesis, melena, hematochezia Genitourinary: denies: dysuria Musculoskeletal: arthralgia, myalgia Skin: denies: lesions Neurological: weakness Psychiatric: anxiety and panic attacks 14 point review of systems done--otherwise negative Medications and Allergies Allergies Allergy/AdvReac Type Severity Reaction Status Date / Time aspirin Allergy Swelling Verified 03/01/19 10:24 Home Medications Medication Instructions Recorded Confirmed Last Taken Type Insulin Degludec/Liraglutide 15 mg SQ QPM 04/23/18 03/01/19 Unknown History [Xultophy 100 Unit-3.6MG/ml Pen] amLODIPine [Norvasc] 20 mg PO DAILY 04/23/18 03/01/19 Unknown History metFORMIN [Glucophage] 1,000 mg PO BID 04/23/18 03/01/19 Unknown History Aspirin BABY CHEW TAB 81 mg PO DAILY 03/01/19 03/01/19 Unknown History Escitalopram 10 mg PO DAILY 03/01/19 03/01/19 Unknown History Ferrous Sulfate 65 mg PO DAILY 03/01/19 03/01/19 Unknown History Losartan Potassium 25 mg PO DAILY 03/01/19 03/01/19 Unknown History Active Meds: Active Medications Amlodipine Besylate (Norvasc) 20 mg PO DAILY GREG Last Admin: 03/01/19 12:28 Dose: 20 mg Documented by: Exam - Constitutional Vitals: Temp Pulse Resp BP Pulse Ox 98.7 F 101 H 20 144/84 98 03/01/19 19:45 03/01/19 19:45 03/01/19 19:45 03/01/19 19:45 03/01/19 19:45 General appearance: Present: no acute distress, well-nourished - EENT Eyes: Present: PERRL ENT: hearing intact, clear oral mucosa - Neck Neck: Present: supple, normal ROM - Respiratory Respiratory effort: normal Respiratory: bilateral: CTA - Cardiovascular Heart rate: 93 Rhythm: regular Heart Sounds: Present: S1 & S2. Absent: rub, click - Extremities Extremities: no ischemia, pulses intact, pulses symmetrical, No edema Peripheral Pulses: within normal limits - Abdominal General gastrointestinal: Present: soft, non-tender, non-distended, normal bowel sounds Female genitourinary: Present: normal - Rectal Rectal Exam: deferred - Integumentary Integumentary: Present: clear, warm, dry - Musculoskeletal Musculoskeletal: gait normal, strength equal bilaterally - Psychiatric Psychiatric: appropriate mood/affect, intact judgment & insight - Neurologic Neurologic: CNII-XII intact, moves all extremities - Allied Health Allied health notes reviewed: nursing, case management Results - Labs CBC & Chem 7: 03/01/19 10:39 03/01/19 10:39 Labs: Laboratory Last Values WBC 7.7 K/mm3 (4.5-11.0) 03/01/19 10:39 RBC 3.69 M/mm3 (3.65-5.03) 03/01/19 10:39 Hgb 6.1 gm/dl (10.1-14.3) L 03/01/19 10:39 Hct 20.6 % (30.3-42.9) L 03/01/19 10:39 MCV 56 fl (79-97) L 03/01/19 10:39 MCH 16 pg (28-32) L 03/01/19 10:39 MCHC 29 % (30-34) L 03/01/19 10:39 RDW 23.3 % (13.2-15.2) H 03/01/19 10:39 Plt Count 506 K/mm3 (140-440) H 03/01/19 10:39 Lymph % (Auto) 27.0 % (13.4-35.0) 03/01/19 10:39 [place] % (Auto) 6.5 % (0.0-7.3) 03/01/19 10:39 Eos % (Auto) 2.2 % (0.0-4.3) 03/01/19 10:39 Baso % (Auto) 0.7 % (0.0-1.8) 03/01/19 10:39 Lymph # 2.1 K/mm3 (1.2-5.4) 03/01/19 10:39 [place] # 0.5 K/mm3 (0.0-0.8) 03/01/19 10:39 Eos # 0.2 K/mm3 (0.0-0.4) 03/01/19 10:39 Baso # 0.1 K/mm3 (0.0-0.1) 03/01/19 10:39 Seg Neutrophils % 63.6 % (40.0-70.0) 03/01/19 10:39 Seg Neutrophils # 4.9 K/mm3 (1.8-7.7) 03/01/19 10:39 778.67 ng/mlDDU (0-234) H 03/01/19 11:06 Sodium 134 mmol/L (137-145) L 03/01/19 10:39 Potassium 3.9 mmol/L (3.6-5.0) 03/01/19 10:39 Chloride 98.8 mmol/L (98-107) 03/01/19 10:39 Carbon Dioxide 22 mmol/L (22-30) 03/01/19 10:39 17 mmol/L 03/01/19 10:39 BUN 6 mg/dL (7-17) L 03/01/19 10:39 0.6 mg/dL (0.7-1.2) L 03/01/19 10:39 Estimated GFR > 60 ml/min 03/01/19 10:39 10 % 03/01/19 10:39 Glucose 185 mg/dL (65-100) H 03/01/19 10:39 Calcium 9.0 mg/dL (8.4-10.2) 03/01/19 10:39 Magnesium 2.00 mg/dL (1.7-2.3) 03/01/19 10:39 130 units/L (30-135) 03/01/19 10:39 < 0.010 ng/mL (0.00-0.029) 03/01/19 16:20 NT-Pro-B Natriuret Pep 205.2 pg/mL (0-450) 03/01/19 15:04 Blood Type O POSITIVE 03/01/19 11:55 Antibody Screen Negative 03/01/19 11:55 Crossmatch See Detail 03/01/19 11:55 Assessment and Plan Advance Directives: Yes (full code) VTE prophylaxis?: Chemical Plan of care discussed with patient/family: Yes - Patient Problems (1) Chest pain Current Visit: Yes Status: Acute Plan to address problem: Chest pain secondary to anemia We will get a Lexiscan and serial troponins (2) Symptomatic anemia Current Visit: Yes Status: Acute Plan to address problem: Transfusions 2 units of packed red blood cells (3) Uterine fibroid Current Visit: Yes Status: Chronic Qualifiers: Uterine leiomyoma location: unspecified location Qualified Code(s): D25.9 - Leiomyoma of uterus, unspecified Plan to address problem: Follow-up as outpatient with [facility] Patient may need hysterectomy Patient may get anemic because of the menorrhagia (4) Hypertension Current Visit: Yes Status: Chronic Qualifiers: Hypertension type: essential hypertension Qualified Code(s): I10 - Essential (primary) hypertension Plan to address problem: Continue antihypertensives (5) Insulin dependent diabetes mellitus Current Visit: Yes Status: Chronic Plan to address problem: Patient on Xultophy Changed to Lantus Accucheks AC and HS Check A1c (6) Depression Current Visit: Yes Status: Chronic Qualifiers: Depression Type: unspecified Qualified Code(s): F32.9 - Major depressive disorder, single episode, unspecified Plan to address problem: Continue Celexa (7) Hyponatremia Current Visit: Yes Status: Acute Plan to address problem: IV fluids --normal saline for now (8) DVT prophylaxis Current Visit: No Status: Acute Plan to address problem: Lovenox subcutaneous and GI prophylaxis
[2019-03-01] MEDS ORDERED: SODIUM CHLORIDE FLUSH SYRINGE 10 ML IV PRN (21:44)
[2019-03-01] MEDS ORDERED: DILAUDID IV PRN (21:44)
[2019-03-01] MEDS ORDERED: PERCOCET 5/325 PO PRN (21:44)
[2019-03-01] MEDS ORDERED: REGLAN IV PRN (21:44)
[2019-03-01] MEDS ORDERED: TYLENOL PO PRN (21:44)
[2019-03-01] MEDS ORDERED: ZOFRAN IV PRN (21:44)
[2019-03-01] MEDS ORDERED: LOSARTAN POTASSIUM 25 MG PO SCH (22:00)
[2019-03-01] MEDS ORDERED: NON-FORMULARY (Aspirin Baby Chew Tab 81 MG) PO SCH (22:00)
[2019-03-01] MEDS ORDERED: FERROUS SULFATE 65 MG PO SCH (22:00)
[2019-03-01] MEDS: COZAAR PO SCH (22:48)
[2019-03-01] MEDS: PEPCID PO SCH (22:49)
[2019-03-01] MEDS: LANTUS SUB-Q SCH (22:49)
[2019-03-01] MEDS: FEOSOL PO SCH (22:49)
[2019-03-01] MEDS: HumaLOG SUB-Q SCH (22:50)
[2019-03-01] MEDS: SODIUM CHLORIDE FLUSH SYRINGE 10 ML IV SCH (22:51)
[2019-03-01] MEDS: GLUCOPHAGE PO SCH (22:53)
[2019-03-01] MEDS ORDERED: NACL 0.9% 1000 ML 1,000 ML IV SCH (23:00)
[2019-03-02 00:19] LABS: Basophils % (Auto) 0.5 % (0.0-1.8); Eosinophils # (Auto) 0.2 K/mm3 (0.0-0.4); Eosinophils % (Auto) 2.1 % (0.0-4.3); Hemoglobin 7.5 gm/dl (10.1-14.3); Lymphocytes # (Auto) 2.1 K/mm3 (1.2-5.4); Lymphocytes % (Auto) 20.7 % (13.4-35.0); Mean Corpuscular HGB Conc 33 % (30-34); Monocytes # (Auto) 0.6 K/mm3 (0.0-0.8); Monocytes % (Auto) 6.1 % (0.0-7.3); Platelet Count 490 K/mm3 (140-440); Red Blood Count 4.06 M/mm3 (3.65-5.03)
[2019-03-02 00:27] LABS: Mean Corpuscular Volume 57 fl (79-97)
[2019-03-02 05:15] LABS: Alanine Aminotransferase 26 units/L (7-56); Albumin 3.8 g/dL (3.9-5); BUN/Creatinine Ratio 12; Blood Urea Nitrogen 7 mg/dL (7-17); Calcium 9.4 mg/dL (8.4-10.2); Hemolysis Index 0
[2019-03-02] MEDS: GLUCOPHAGE PO SCH ×2 (08:37→17:02)
[2019-03-02] MEDS: HumaLOG SUB-Q SCH ×4 (08:37→22:35)
[2019-03-02] MEDS ORDERED: ESCITALOPRAM 10 MG PO SCH (10:00)
[2019-03-02] MEDS ORDERED: K-DUR PO ONE (10:01)
[2019-03-02] MEDS: LEXAPRO PO SCH (10:28)
[2019-03-02] MEDS: FEOSOL PO SCH (10:29)
[2019-03-02] MEDS: PEPCID PO SCH ×2 (10:29→22:35)
[2019-03-02] MEDS: BABY ASPIRIN PO SCH (10:30)
[2019-03-02] MEDS: COZAAR PO SCH (10:35)
[2019-03-02] MEDS: NORVASC PO SCH (10:35)
[2019-03-02] MEDS: SODIUM CHLORIDE FLUSH SYRINGE 10 ML IV SCH ×2 (10:36→22:36)
--- NOTE | 2019-03-02 12:45 | Consultation ---
History of Present Illness Consult date: 03/02/19 Requesting physician: LETITIA CÁRDENAS Consult reason: chest pain History of present illness: Ms. Fernandez is a 38 y/o female with a medical history significant for hypertension, panic attacks, diabetes, uterine fibroids and depression who presented to the ED with left-sided chest pressure and SOB x1 day. She also reports having two panic attacks yesterday. She follows with Dr. Stark in our office. Troponins negative and EKG negative for acute findings. CTA was negative for PE and a chest x-ray revealed moderate diffuse lung disease likely r/t pulmonary edema. She was notably anemic in the ED with a hemoglobin of 6.1. She received one unit of PRBCs and will receive another today. She states she experiences menorrhagia r/t uterine fibroids and has required blood transfusions before. An echocardiogram in October 2018 found an LVEF of 55 percent and a small posterior pericardial effusion. Past History Past Medical History: anemia, diabetes, hypertension, other (uterine fibroids, panic attacks) Medications and Allergies Allergies Allergy/AdvReac Type Severity Reaction Status Date / Time aspirin Allergy Swelling Verified 03/01/19 10:24 Home Medications Medication Instructions Recorded Confirmed Last Taken Type Insulin Degludec/Liraglutide 15 mg SQ QPM 04/23/18 03/01/19 Unknown History [Xultophy 100 Unit-3.6MG/ml Pen] amLODIPine [Norvasc] 20 mg PO DAILY 04/23/18 03/01/19 Unknown History metFORMIN [Glucophage] 1,000 mg PO BID 04/23/18 03/01/19 Unknown History Aspirin BABY CHEW TAB 81 mg PO DAILY 03/01/19 03/01/19 Unknown History Escitalopram 10 mg PO DAILY 03/01/19 03/01/19 Unknown History Ferrous Sulfate 65 mg PO DAILY 03/01/19 03/01/19 Unknown History Losartan Potassium 25 mg PO DAILY 03/01/19 03/01/19 Unknown History Active Meds: Active Medications Acetaminophen (Tylenol) 650 mg PO Q4H PRN PRN Reason: Pain MILD(1-3)/Fever >100.5/DOYLE Amlodipine Besylate (Norvasc) 20 mg PO DAILY [facility] Last Admin: 03/02/19 10:35 Dose: 20 mg Documented by: Aspirin (Baby Aspirin) 81 mg PO QDAY [facility] Last Admin: 03/02/19 10:30 Dose: 81 mg Documented by: Escitalopram Oxalate (Lexapro) 10 mg PO DAILY [facility] Last Admin: 03/02/19 10:28 Dose: 10 mg Documented by: Famotidine (Pepcid) 20 mg PO BID [facility] Last Admin: 03/02/19 10:29 Dose: 20 mg Documented by: Ferrous Sulfate (Feosol) 325 mg PO DAILY [facility] Last Admin: 03/02/19 10:29 Dose: 325 mg Documented by: Hydromorphone HCl (Dilaudid) 0.5 mg IV Q3H PRN PRN Reason: Pain , Severe (7-10) Sodium Chloride (Nacl 0.9% 1000 Ml) 1,000 mls @ 75 mls/hr IV DIRECT [facility] Last Admin: 03/01/19 22:53 Dose: 75 mls/hr Documented by: Insulin Glargine (Lantus) 20 units SUB-Q QHS [facility] Last Admin: 03/01/19 22:49 Dose: Not Given Documented by: Insulin Human Lispro (Humalog) 0 unit SUB-Q ACHS [facility]; Protocol Last Admin: 03/02/19 08:37 Dose: 2 unit Documented by: Losartan Potassium (Cozaar) 25 mg PO DAILY [facility] Last Admin: 03/02/19 10:35 Dose: 25 mg Documented by: Metformin HCl (Glucophage) 1,000 mg PO BIDDIAB [facility] Last Admin: 03/02/19 08:37 Dose: 1,000 mg Documented by: Metoclopramide HCl (Reglan) 10 mg IV Q6H PRN PRN Reason: Nausea And Vomiting Ondansetron HCl (Zofran) 4 mg IV Q8H PRN PRN Reason: Nausea And Vomiting Oxycodone/Acetaminophen (Percocet 5/325) 1 tab PO Q6H PRN PRN Reason: Pain, Moderate (4-6) Last Admin: 03/02/19 11:27 Dose: 1 tab Documented by: Sodium Chloride (Sodium Chloride Flush Syringe 10 Ml) 10 ml IV BID [facility] Last Admin: 03/02/19 10:36 Dose: 10 ml Documented by: Sodium Chloride (Sodium Chloride Flush Syringe 10 Ml) 10 ml IV PRN PRN PRN Reason: LINE FLUSH Review of Systems All systems: negative Physical Examination Last Vital Signs Temp 98.4 F 03/02/19 12:15 Pulse 98 H 03/02/19 12:15 Resp 18 03/02/19 12:15 BP 135/79 03/02/19 12:15 Pulse Ox 97 03/02/19 12:15 General appearance: no acute distress HEENT: Positive: PERRL, Normocephaly Neck: Positive: neck supple Cardiac: Positive: Reg Rate and Rhythm Lungs: Positive: Normal Exam Neuro: Positive: Grossly Intact Abdomen: Positive: Unremarkable Female genitourinary: deferred Skin: Positive: Clear Musculoskeletal: Normal Range of Motion Extremities: Present: normal Results 03/01/19 23:35 03/02/19 03:43 Cardiac Enzymes 03/02/19 Range/Units 03:43 AST 27 (5-40) units/L CBC 03/01/19 Range/Units 23:35 WBC 10.0 (4.5-11.0) K/mm3 RBC 4.06 (3.65-5.03) M/mm3 Hgb 7.5 L (10.1-14.3) gm/dl Hct 23.0 L (30.3-42.9) % Plt Count 490 H (140-440) K/mm3 Lymph # 2.1 (1.2-5.4) K/mm3 [place] # 0.6 (0.0-0.8) K/mm3 Eos # 0.2 (0.0-0.4) K/mm3 Baso # 0.0 (0.0-0.1) K/mm3 Comprehensive Metabolic Panel 03/02/19 Range/Units 03:43 Sodium 139 (137-145) mmol/L Potassium 3.5 L (3.6-5.0) mmol/L Chloride 98.4 (98-107) mmol/L Carbon Dioxide 25 (22-30) mmol/L BUN 7 (7-17) mg/dL Creatinine 0.6 L (0.7-1.2) mg/dL Glucose 172 H (65-100) mg/dL Calcium 9.4 (8.4-10.2) mg/dL AST 27 (5-40) units/L ALT 26 (7-56) units/L Alkaline Phosphatase 99 (35-129) units/L Total Protein 7.6 (6.3-8.2) g/dL Albumin 3.8 L (3.9-5) g/dL - Imaging and Cardiology Echo: report reviewed (10/2018: EF 55-60%, small posterior pericardial effusion) - EKG Interpretation EKG: sinus rhythm EKG interpretations - Telemetry EKG Rhythm: Sinus Rhythm - EKG Sinus rhythms and dysrhythmias: sinus rhythm Assessment and Plan Ms. Fernandez is a 38 y/o female with a medical history significant for hypertension, diabetes, depression, panic attacks and uterine fibroids who presented to the ED after experiencing SOB and two panic attacks. Cardiac status is stable. Continue current management. Will repeat echo to evaluate small posterior pericardial effusion noted on echo from 10/2018. No stress test at this time given anemia. The patient has been seen in conjunction with Dr. Stark, who agrees with assessment and plan. - Patient Problems (1) Chest pain Current Visit: Yes Status: Acute (2) Symptomatic anemia Current Visit: Yes Status: Acute (3) Depression Current Visit: Yes Status: Chronic Qualifiers: Depression Type: unspecified Qualified Code(s): F32.9 - Major depressive disorder, single episode, unspecified (4) Hypertension Current Visit: Yes Status: Chronic Qualifiers: Hypertension type: essential hypertension Qualified Code(s): I10 - Essential (primary) hypertension (5) Uterine fibroid Current Visit: Yes Status: Chronic Qualifiers: Uterine leiomyoma location: unspecified location Qualified Code(s): D25.9 - Leiomyoma of uterus, unspecified (6) Poorly controlled diabetes mellitus Current Visit: No Status: Chronic
--- NOTE | 2019-03-02 15:53 | Progress Note ---
Assessment and Plan Assessment and plan: Patient is a 38 yo woman hypertension, panic attack, IDDM, uterine fibroids, anemia and depression presented with chest pains x 1 day. (1) Chest pain Current Visit: Yes Status: Acute Plan to address problem: Chest pain secondary to anemia Cardiology consulted, input noted. Echo ordered, follow up pericardial effusion (2) Symptomatic anemia Current Visit: Yes Status: Acute Plan to address problem: Transfusions 2 units of packed red blood cells (3) Uterine fibroid Current Visit: Yes Status: Chronic Qualifiers: Uterine leiomyoma location: unspecified location Qualified Code(s): D25.9 - Leiomyoma of uterus, unspecified Plan to address problem: Follow-up as outpatient with [facility] Patient may need hysterectomy Patient may get anemic because of the menorrhagia (4) Hypertension Current Visit: Yes Status: Chronic Qualifiers: Hypertension type: essential hypertension Qualified Code(s): I10 - Essential (primary) hypertension Plan to address problem: Continue antihypertensives (5) Insulin dependent diabetes mellitus Current Visit: Yes Status: Chronic Plan to address problem: Patient on Xultophy Changed to Lantus Accucheks AC and HS Check A1c History Interval history: Patient was seen and examined. Follow-up on current diagnosis chest pains. No overnight events reported to me. Patient denies any chest pain, shortness breath, nausea/vomiting or severe headaches. Imaging, nursing note, chart, labs and old chart reviewed. Discussed with patient. Hospitalist Physical - Physical exam Narrative exam: Gen: WDWN, NAD, Awake, Alert, Orientated HEENT: NCAT, EOMI, PERRL, OP Clear Neck: supple, no adenopathy, no thyromegaly, no JVD CVS/Heart: RRR, normal S1S2, pulses present bilaterally Chest/Lungs: CTA B, Symmetrical chest expansion, good air entry bilaterally, reproducible chest wall tenderness GI/Abdomen: soft, NTND, good bowel sounds, no guarding or rebound /Bladder: no suprapubic tenderness, no CVA or paraspinal tenderness Extermity/Skin: no c/c/e, no obvious rash MSK: FROM x 4 Neuro: CN 2-12 grossly intact, no new focal deficits Psych: calm - Constitutional Vitals: Temp Pulse Resp BP Pulse Ox 98.5 F 90 18 139/83 97 03/02/19 15:36 03/02/19 15:36 03/02/19 15:36 03/02/19 15:36 03/02/19 15:36 General appearance: Present: no acute distress Results - Labs CBC & Chem 7: 03/01/19 23:35 03/02/19 03:43 Labs: Laboratory Last Values WBC 10.0 K/mm3 (4.5-11.0) 03/01/19 23:35 RBC 4.06 M/mm3 (3.65-5.03) 03/01/19 23:35 Hgb 7.5 gm/dl (10.1-14.3) L 03/01/19 23:35 Hct 23.0 % (30.3-42.9) L 03/01/19 23:35 MCV 57 fl (79-97) L 03/01/19 23:35 MCH 19 pg (28-32) L 03/01/19 23:35 MCHC 33 % (30-34) 03/01/19 23:35 RDW 25.0 % (13.2-15.2) H 03/01/19 23:35 Plt Count 490 K/mm3 (140-440) H 03/01/19 23:35 Lymph % (Auto) 20.7 % (13.4-35.0) 03/01/19 23:35 [place] % (Auto) 6.1 % (0.0-7.3) 03/01/19 23:35 Eos % (Auto) 2.1 % (0.0-4.3) 03/01/19 23:35 Baso % (Auto) 0.5 % (0.0-1.8) 03/01/19 23:35 Lymph # 2.1 K/mm3 (1.2-5.4) 03/01/19 23:35 [place] # 0.6 K/mm3 (0.0-0.8) 03/01/19 23:35 Eos # 0.2 K/mm3 (0.0-0.4) 03/01/19 23:35 Baso # 0.0 K/mm3 (0.0-0.1) 03/01/19 23:35 Seg Neutrophils % 70.6 % (40.0-70.0) H 03/01/19 23:35 Seg Neutrophils # 7.1 K/mm3 (1.8-7.7) 03/01/19 23:35 778.67 ng/mlDDU (0-234) H 03/01/19 11:06 Sodium 139 mmol/L (137-145) 03/02/19 03:43 Potassium 3.5 mmol/L (3.6-5.0) L 03/02/19 03:43 Chloride 98.4 mmol/L (98-107) 03/02/19 03:43 Carbon Dioxide 25 mmol/L (22-30) 03/02/19 03:43 19 mmol/L 03/02/19 03:43 BUN 7 mg/dL (7-17) 03/02/19 03:43 0.6 mg/dL (0.7-1.2) L 03/02/19 03:43 Estimated GFR > 60 ml/min 03/02/19 03:43 12 % 03/02/19 03:43 Glucose 172 mg/dL (65-100) H 03/02/19 03:43 POC Glucose 239 (70-105) H 03/02/19 12:50 9.8 % (4-6) H 03/01/19 10:39 Calcium 9.4 mg/dL (8.4-10.2) 03/02/19 03:43 Magnesium 2.00 mg/dL (1.7-2.3) 03/01/19 10:39 0.30 mg/dL (0.1-1.2) 03/02/19 03:43 AST 27 units/L (5-40) 03/02/19 03:43 ALT 26 units/L (7-56) 03/02/19 03:43 99 units/L (35-129) 03/02/19 03:43 130 units/L (30-135) 03/01/19 10:39 < 0.010 ng/mL (0.00-0.029) 03/02/19 03:43 NT-Pro-B Natriuret Pep 205.2 pg/mL (0-450) 03/01/19 15:04 7.6 g/dL (6.3-8.2) 03/02/19 03:43 3.8 g/dL (3.9-5) L 03/02/19 03:43 1.0 % 03/02/19 03:43 Blood Type O POSITIVE 03/01/19 11:55 Antibody Screen Negative 03/01/19 11:55 Crossmatch See Detail 03/01/19 11:55 Active Medications - Current Medications Current Medications: Generic Name Dose Route Start Last Admin Trade Name Freq PRN Reason Stop Dose Admin Acetaminophen 650 mg 03/01/19 21:44 Tylenol PO Q4H PRN Pain MILD(1-3)/Fever >100.5/DOYLE Amlodipine Besylate 20 mg 03/01/19 12:00 03/02/19 10:35 Norvasc PO 20 mg DAILY GREG Administration Aspirin 81 mg 03/02/19 10:00 03/02/19 10:30 Baby Aspirin PO 81 mg QDAY GREG Administration Escitalopram Oxalate 10 mg 03/02/19 10:00 03/02/19 10:28 Lexapro PO 10 mg DAILY GREG Administration Famotidine 20 mg 03/01/19 22:00 03/02/19 10:29 Pepcid PO 20 mg BID GREG Administration Ferrous Sulfate 325 mg 03/01/19 22:00 03/02/19 10:29 Feosol PO 325 mg DAILY GREG Administration Hydromorphone HCl 0.5 mg 03/01/19 21:44 Dilaudid IV Q3H PRN Pain , Severe (7-10) Sodium Chloride 1,000 mls @ 75 mls/hr 03/01/19 23:00 03/01/19 22:53 Nacl 0.9% 1000 Ml IV 75 mls/hr DIRECT [facility]REG Administration Insulin Glargine 20 units 03/01/19 22:00 03/01/19 22:49 Lantus SUB-Q Not Given QHS [facility] Insulin Human Lispro 0 unit 03/01/19 22:00 03/02/19 13:01 Humalog SUB-Q 3 unit ACHS GREG Administration Protocol Losartan Potassium 25 mg 03/01/19 22:00 03/02/19 10:35 Cozaar PO 25 mg DAILY [facility]REG Administration Metformin HCl 1,000 mg 03/01/19 22:00 03/02/19 08:37 Glucophage PO 1,000 mg BIDDIAB GREG Administration Metoclopramide HCl 10 mg 03/01/19 21:44 Reglan IV Q6H PRN Nausea And Vomiting Ondansetron HCl 4 mg 03/01/19 21:44 Zofran IV Q8H PRN Nausea And Vomiting Oxycodone/Acetaminophen 1 tab 03/01/19 21:44 03/02/19 11:27 Percocet 5/325 PO 1 tab Q6H PRN Administration Pain, Moderate (4-6) Sodium Chloride 10 ml 03/01/19 22:00 03/02/19 10:36 Sodium Chloride Flush Syringe 10 Ml IV 10 ml BID [facility] Administration Sodium Chloride 10 ml 03/01/19 21:44 Sodium Chloride Flush Syringe 10 Ml IV PRN PRN LINE FLUSH
[2019-03-02] MEDS: LANTUS SUB-Q SCH (22:35)
[2019-03-02] MEDS ORDERED: MIRALAX 3350 PO PRN (22:51)
[2019-03-02 23:11] LABS: Hemoglobin 8.8 gm/dl (10.1-14.3); Mean Corpuscular HGB Conc 30 % (30-34); Platelet Count 517 K/mm3 (140-440); Red Blood Count 4.81 M/mm3 (3.65-5.03)
[2019-03-02 23:19] LABS: Mean Corpuscular Volume 60 fl (79-97)
[2019-03-02 23:20] LABS: Red Cell Distribution Width 28.1 % (13.2-15.2)
[2019-03-02 23:27] LABS: BUN/Creatinine Ratio 17; Blood Urea Nitrogen 10 mg/dL (7-17); Calcium 9.8 mg/dL (8.4-10.2); Hemolysis Index 0
[2019-03-03 00:56] LABS: Basophils % (Manual) 0 % (0.0-1.8); Total Cells Counted 100
[2019-03-03 00:57] LABS: Anisocytosis 3+; Hypochromasia 2+; Platelet Estimate Consistent w Auto
[2019-03-03 00:58] LABS: Dimorphic RBC Yes
[2019-03-03] MEDS: COLACE PO SCH ×3 (01:00→21:49)
--- NOTE | 2019-03-03 10:30 | Progress Note ---
Assessment and Plan Ms. Fernandez is a 38 y/o female with a medical history significant for hypertension, diabetes, depression, panic attacks and uterine fibroids who presented to the ED after experiencing SOB and two panic attacks. Cardiac status is stable. Continue current management. Will repeat echo to evaluate small posterior pericardial effusion noted on echo from 10/2018. Will plan for lexiscan MPI stress test in AM. NPO after MN. The patient has been seen in conjunction with Dr. Stark who agrees with assessment and plan of care. - Patient Problems (1) Chest pain Current Visit: Yes Status: Acute (2) Symptomatic anemia Current Visit: Yes Status: Acute (3) Depression Current Visit: Yes Status: Chronic Qualifiers: Depression Type: unspecified Qualified Code(s): F32.9 - Major depressive disorder, single episode, unspecified (4) Hypertension Current Visit: Yes Status: Chronic Qualifiers: Hypertension type: essential hypertension Qualified Code(s): I10 - Essential (primary) hypertension (5) Uterine fibroid Current Visit: Yes Status: Chronic Qualifiers: Uterine leiomyoma location: unspecified location Qualified Code(s): D25.9 - Leiomyoma of uterus, unspecified (6) Poorly controlled diabetes mellitus Current Visit: No Status: Chronic Subjective Date of service: 03/03/19 Principal diagnosis: anemia; cp Interval history: pt resting in bed, states she is feeling better today s/p PRBC tx, no current cardiac complaints. Objective Last Vital Signs Temp 98.3 F 03/03/19 08:58 Pulse 84 03/03/19 08:58 Resp 18 03/03/19 08:58 BP 131/85 03/03/19 08:58 Pulse Ox 96 03/03/19 08:58 - Physical Examination General: No Apparent Distress HEENT: Positive: PERRL, Normocephaly Neck: Positive: neck supple Cardiac: Positive: Reg Rate and Rhythm, S1/S2 Lungs: Positive: Decreased Breath Sounds Neuro: Positive: Grossly Intact Abdomen: Positive: Unremarkable Skin: Positive: Clear Musculoskeletal: Normal Range of Motion Extremities: Present: normal - Labs and Meds CBC 03/02/19 Range/Units 22:41 WBC 8.2 (4.5-11.0) K/mm3 RBC 4.81 (3.65-5.03) M/mm3 Hgb 8.8 L (10.1-14.3) gm/dl Hct 29.0 L D (30.3-42.9) % Plt Count 517 H (140-440) K/mm3 Comprehensive Metabolic Panel 03/02/19 Range/Units 22:41 Sodium 133 L (137-145) mmol/L Potassium 3.8 (3.6-5.0) mmol/L Chloride 96.8 L (98-107) mmol/L Carbon Dioxide 25 (22-30) mmol/L BUN 10 (7-17) mg/dL Creatinine 0.6 L (0.7-1.2) mg/dL Glucose 177 H (65-100) mg/dL Calcium 9.8 (8.4-10.2) mg/dL - Imaging and Cardiology Echo: report reviewed (10/2018: EF 55-60%, small posterior pericardial effusion) - EKG Sinus rhythms and dysrhythmias: sinus rhythm
[2019-03-03] MEDS: HumaLOG SUB-Q SCH ×4 (10:52→21:51)
[2019-03-03] MEDS: COZAAR PO SCH (10:53)
[2019-03-03] MEDS: BABY ASPIRIN PO SCH (10:53)
[2019-03-03] MEDS: FEOSOL PO SCH (10:53)
[2019-03-03] MEDS: NORVASC PO SCH (10:53)
[2019-03-03] MEDS: PEPCID PO SCH ×2 (10:53→21:50)
[2019-03-03] MEDS: LEXAPRO PO SCH (10:53)
[2019-03-03] MEDS: GLUCOPHAGE PO SCH ×2 (10:53→17:45)
[2019-03-03] MEDS: SODIUM CHLORIDE FLUSH SYRINGE 10 ML IV SCH ×2 (10:54→21:50)
--- NOTE | 2019-03-03 13:00 | Progress Note ---
Assessment and Plan Assessment and plan: Patient is a 38 yo woman hypertension, panic attack, IDDM, uterine fibroids, anemia and depression presented with chest pains x 1 day. (1) Chest pain Current Visit: Yes Status: Acute Plan to address problem: Chest pain secondary to anemia Cardiology consulted, input noted. Echo ordered, follow up pericardial effusion (2) Symptomatic anemia Current Visit: Yes Status: Acute Plan to address problem: Transfusions 2 units of packed red blood cells (3) Uterine fibroid Current Visit: Yes Status: Chronic Qualifiers: Uterine leiomyoma location: unspecified location Qualified Code(s): D25.9 - Leiomyoma of uterus, unspecified Plan to address problem: Follow-up as outpatient with DIRECTOR OF CULTURE Patient may need hysterectomy Patient may get anemic because of the menorrhagia (4) Hypertension Current Visit: Yes Status: Chronic Qualifiers: Hypertension type: essential hypertension Qualified Code(s): I10 - Essential (primary) hypertension Plan to address problem: Continue antihypertensives (5) Insulin dependent diabetes mellitus Current Visit: Yes Status: Chronic Plan to address problem: Patient on Xultophy Changed to Lantus Accucheks AC and HS Check A1c==>9.8 Cardiology cancelled the stress test and ordered ECHO, now they have re-ordered stress test for tomorrow. History Interval history: Patient was seen and examined. Follow-up on current diagnosis chest pains. No overnight events reported to me. Patient denies any chest pain, shortness breath, nausea/vomiting or severe headaches. Imaging, nursing note, chart, labs and old chart reviewed. Discussed with patient. Hospitalist Physical - Physical exam Narrative exam: Gen: WDWN, NAD, Awake, Alert, Orientated HEENT: NCAT, EOMI, PERRL, OP Clear Neck: supple, no adenopathy, no thyromegaly, no JVD CVS/Heart: RRR, normal S1S2, pulses present bilaterally Chest/Lungs: CTA B, Symmetrical chest expansion, good air entry bilaterally, reproducible chest wall tenderness GI/Abdomen: soft, NTND, good bowel sounds, no guarding or rebound /Bladder: no suprapubic tenderness, no CVA or paraspinal tenderness Extermity/Skin: no c/c/e, no obvious rash MSK: FROM x 4 Neuro: CN 2-12 grossly intact, no new focal deficits Psych: calm - Constitutional Vitals: Temp Pulse Resp BP Pulse Ox 97.5 F L 84 18 148/86 98 03/03/19 11:49 03/03/19 11:49 03/03/19 11:49 03/03/19 11:49 03/03/19 11:49 General appearance: Present: no acute distress Results - Labs CBC & Chem 7: 03/02/19 22:41 03/02/19 22:41 Labs: Laboratory Last Values WBC 8.2 K/mm3 (4.5-11.0) 03/02/19 22:41 RBC 4.81 M/mm3 (3.65-5.03) 03/02/19 22:41 Hgb 8.8 gm/dl (10.1-14.3) L 03/02/19 22:41 Hct 29.0 % (30.3-42.9) L D 03/02/19 22:41 MCV 60 fl (79-97) L 03/02/19 22:41 MCH 18 pg (28-32) L 03/02/19 22:41 MCHC 30 % (30-34) 03/02/19 22:41 RDW 28.1 % (13.2-15.2) H 03/02/19 22:41 Plt Count 517 K/mm3 (140-440) H 03/02/19 22:41 Lymph % (Auto) 20.7 % (13.4-35.0) 03/01/19 23:35 [place] % (Auto) 6.1 % (0.0-7.3) 03/01/19 23:35 Eos % (Auto) 2.1 % (0.0-4.3) 03/01/19 23:35 Baso % (Auto) 0.5 % (0.0-1.8) 03/01/19 23:35 Lymph # 2.1 K/mm3 (1.2-5.4) 03/01/19 23:35 [place] # 0.6 K/mm3 (0.0-0.8) 03/01/19 23:35 Eos # 0.2 K/mm3 (0.0-0.4) 03/01/19 23:35 Baso # 0.0 K/mm3 (0.0-0.1) 03/01/19 23:35 Add Manual Diff Complete 03/02/19 22:41 Total Counted 100 03/02/19 22:41 Seg Neutrophils % 70.6 % (40.0-70.0) H 03/01/19 23:35 Seg Neuts % (Manual) 68.0 % (40.0-70.0) 03/02/19 22:41 0 % 03/02/19 22:41 27.0 % (13.4-35.0) 03/02/19 22:41 Reactive Lymphs % (Man) 0 % 03/02/19 22:41 4.0 % (0.0-7.3) 03/02/19 22:41 1.0 % (0.0-4.3) 03/02/19 22:41 0 % (0.0-1.8) 03/02/19 22:41 0 % 03/02/19 22:41 0 % 03/02/19 22:41 0 % 03/02/19 22:41 0 % 03/02/19 22:41 Nucleated RBC % Not Reportable 03/02/19 22:41 Seg Neutrophils # 7.1 K/mm3 (1.8-7.7) 03/01/19 23:35 Seg Neutrophils # Man 5.6 K/mm3 (1.8-7.7) 03/02/19 22:41 Band Neutrophils # 0.0 K/mm3 03/02/19 22:41 2.2 K/mm3 (1.2-5.4) 03/02/19 22:41 Abs React Lymphs (Man) 0.0 K/mm3 03/02/19 22:41 0.3 K/mm3 (0.0-0.8) 03/02/19 22:41 0.1 K/mm3 (0.0-0.4) 03/02/19 22:41 0.0 K/mm3 (0.0-0.1) 03/02/19 22:41 0.0 K/mm3 03/02/19 22:41 0.0 K/mm3 03/02/19 22:41 0.0 K/mm3 03/02/19 22:41 Blast Cells # 0.0 K/mm3 03/02/19 22:41 WBC Morphology Not Reportable 03/02/19 22:41 Hypersegmented Neuts Not Reportable 03/02/19 22:41 Hyposegmented Neuts Not Reportable 03/02/19 22:41 Hypogranular Neuts Not Reportable 03/02/19 22:41 Not Reportable 03/02/19 22:41 Not Reportable 03/02/19 22:41 Not Reportable 03/02/19 22:41 Not Reportable 03/02/19 22:41 Not Reportable 03/02/19 22:41 Not Reportable 03/02/19 22:41 Consistent w auto 03/02/19 22:41 Not Reportable 03/02/19 22:41 Plt Clumps, EDTA Not Reportable 03/02/19 22:41 Not Reportable 03/02/19 22:41 Not Reportable 03/02/19 22:41 Not Reportable 03/02/19 22:41 Plt Morphology Comment Not Reportable 03/02/19 22:41 RBC Morphology Not Reportable 03/02/19 22:41 Dimorphic RBCs Yes 03/02/19 22:41 1+ 03/02/19 22:41 2+ 03/02/19 22:41 Not Reportable 03/02/19 22:41 3+ 03/02/19 22:41 2+ 03/02/19 22:41 Not Reportable 03/02/19 22:41 Not Reportable 03/02/19 22:41 Not Reportable 03/02/19 22:41 Not Reportable 03/02/19 22:41 Not Reportable 03/02/19 22:41 Not Reportable 03/02/19 22:41 Not Reportable 03/02/19 22:41 Not Reportable 03/02/19 22:41 Not Reportable 03/02/19 22:41 Not Reportable 03/02/19 22:41 Not Reportable 03/02/19 22:41 Not Reportable 03/02/19 22:41 Not Reportable 03/02/19 22:41 Not Reportable 03/02/19 22:41 Acanthocytes (Spur) Not Reportable 03/02/19 22:41 Rouleaux Not Reportable 03/02/19 22:41 Not Reportable 03/02/19 22:41 Not Reportable 03/02/19 22:41 Not Reportable 03/02/19 22:41 Not Reportable 03/02/19 22:41 Hem Pathologist Commnt No 03/02/19 22:41 778.67 ng/mlDDU (0-234) H 03/01/19 11:06 Sodium 133 mmol/L (137-145) L 03/02/19 22:41 Potassium 3.8 mmol/L (3.6-5.0) 03/02/19 22:41 Chloride 96.8 mmol/L (98-107) L 03/02/19 22:41 Carbon Dioxide 25 mmol/L (22-30) 03/02/19 22:41 15 mmol/L 03/02/19 22:41 BUN 10 mg/dL (7-17) 03/02/19 22:41 0.6 mg/dL (0.7-1.2) L 03/02/19 22:41 Estimated GFR > 60 ml/min 03/02/19 22:41 17 % 03/02/19 22:41 Glucose 177 mg/dL (65-100) H 03/02/19 22:41 POC Glucose 243 (70-105) H 03/03/19 12:02 9.8 % (4-6) H 03/01/19 10:39 Calcium 9.8 mg/dL (8.4-10.2) 03/02/19 22:41 Magnesium 2.00 mg/dL (1.7-2.3) 03/01/19 10:39 0.30 mg/dL (0.1-1.2) 03/02/19 03:43 AST 27 units/L (5-40) 03/02/19 03:43 ALT 26 units/L (7-56) 03/02/19 03:43 99 units/L (35-129) 03/02/19 03:43 130 units/L (30-135) 03/01/19 10:39 < 0.010 ng/mL (0.00-0.029) 03/02/19 03:43 NT-Pro-B Natriuret Pep 205.2 pg/mL (0-450) 03/01/19 15:04 7.6 g/dL (6.3-8.2) 03/02/19 03:43 3.8 g/dL (3.9-5) L 03/02/19 03:43 1.0 % 03/02/19 03:43 Blood Type O POSITIVE 03/01/19 11:55 Antibody Screen Negative 03/01/19 11:55 Crossmatch See Detail 03/01/19 11:55 Active Medications - Current Medications Current Medications: Generic Name Dose Route Start Last Admin Trade Name Freq PRN Reason Stop Dose Admin Acetaminophen 650 mg 03/01/19 21:44 Tylenol PO Q4H PRN Pain MILD(1-3)/Fever >100.5/DOYLE Amlodipine Besylate 20 mg 03/01/19 12:00 03/03/19 10:53 Norvasc PO 20 mg DAILY GREG Administration Aspirin 81 mg 03/02/19 10:00 03/03/19 10:53 Baby Aspirin PO 81 mg QDAY GREG Administration Docusate Sodium 100 mg 03/02/19 23:00 03/03/19 10:53 Colace PO 100 mg BID GREG Administration Escitalopram Oxalate 10 mg 03/02/19 10:00 03/03/19 10:53 Lexapro PO 10 mg DAILY GREG Administration Famotidine 20 mg 03/01/19 22:00 03/03/19 10:53 Pepcid PO 20 mg BID GREG Administration Ferrous Sulfate 325 mg 03/01/19 22:00 03/03/19 10:53 Feosol PO 325 mg DAILY GREG Administration Hydromorphone HCl 0.5 mg 03/01/19 21:44 Dilaudid IV Q3H PRN Pain , Severe (7-10) Sodium Chloride 1,000 mls @ 75 mls/hr 03/01/19 23:00 03/01/19 22:53 Nacl 0.9% 1000 Ml IV 75 mls/hr DIRECT GREG Administration Insulin Glargine 20 units 03/01/19 22:00 03/02/19 22:35 Lantus SUB-Q 20 units QHS GREG Administration Insulin Human Lispro 0 unit 03/01/19 22:00 03/03/19 10:52 Humalog SUB-Q Not Given ACHS [facility] Protocol Losartan Potassium 25 mg 03/01/19 22:00 03/03/19 10:53 Cozaar PO 25 mg DAILY GREG Administration Metformin HCl 1,000 mg 03/01/19 22:00 03/03/19 10:53 Glucophage PO 1,000 mg BIDDIAB GREG Administration Metoclopramide HCl 10 mg 03/01/19 21:44 Reglan IV Q6H PRN Nausea And Vomiting Ondansetron HCl 4 mg 03/01/19 21:44 Zofran IV Q8H PRN Nausea And Vomiting Oxycodone/Acetaminophen 1 tab 03/01/19 21:44 03/02/19 11:27 Percocet 5/325 PO 1 tab Q6H PRN Administration Pain, Moderate (4-6) Polyethylene Glycol 17 gm 03/02/19 22:51 Miralax 3350 PO QDAY PRN Constipation Sodium Chloride 10 ml 03/01/19 22:00 03/03/19 10:54 Sodium Chloride Flush Syringe 10 Ml IV 10 ml BID GREG Administration Sodium Chloride 10 ml 03/01/19 21:44 Sodium Chloride Flush Syringe 10 Ml IV PRN PRN LINE FLUSH
[2019-03-03] MEDS: LANTUS SUB-Q SCH (21:50)
[2019-03-04 07:36] LABS: Hemoglobin 9.9 gm/dl (10.1-14.3); Mean Corpuscular HGB Conc 32 % (30-34); Platelet Count 506 K/mm3 (140-440); Red Blood Count 5.12 M/mm3 (3.65-5.03)
[2019-03-04 07:56] LABS: Mean Corpuscular Volume 60 fl (79-97); Red Cell Distribution Width 28.7 % (13.2-15.2)
[2019-03-04 07:58] LABS: BUN/Creatinine Ratio 15; Blood Urea Nitrogen 9 mg/dL (7-17); Calcium 10.1 mg/dL (8.4-10.2); Hemolysis Index 6
--- NOTE | 2019-03-04 10:23 | Progress Note ---
Assessment and Plan S/p lexiscan MPI stress test this AM which was negative. Echo reviewed - normal EF, no gross abnormalities. Currently stable cardiac status. Pt may discharge from cardiology standpoint. Recommend follow up in our office with Dr. Stark within 1-2 weeks of hospital discharge ([phone]). The patient has been seen in conjunction with Dr. Stark who agrees with assessment and plan of care. - Patient Problems (1) Chest pain Current Visit: Yes Status: Resolved (2) Symptomatic anemia Current Visit: Yes Status: Acute (3) Depression Current Visit: Yes Status: Chronic Qualifiers: Depression Type: unspecified Qualified Code(s): F32.9 - Major depressive disorder, single episode, unspecified (4) Hypertension Current Visit: Yes Status: Chronic Qualifiers: Hypertension type: essential hypertension Qualified Code(s): I10 - Essential (primary) hypertension (5) Uterine fibroid Current Visit: Yes Status: Chronic Qualifiers: Uterine leiomyoma location: unspecified location Qualified Code(s): D25.9 - Leiomyoma of uterus, unspecified (6) Poorly controlled diabetes mellitus Current Visit: No Status: Chronic Subjective Date of service: 03/04/19 Principal diagnosis: anemia; cp Interval history: pt for stress test today, no current cardiac complaints. Objective Last Vital Signs Temp 98.6 F 03/04/19 08:27 Pulse 97 H 03/04/19 08:27 Resp 18 03/04/19 08:27 BP 122/71 03/04/19 08:27 Pulse Ox 97 03/04/19 08:27 - Physical Examination General: No Apparent Distress HEENT: Positive: PERRL, Normocephaly Neck: Positive: neck supple Cardiac: Positive: Reg Rate and Rhythm, S1/S2 Lungs: Positive: Decreased Breath Sounds Neuro: Positive: Grossly Intact Abdomen: Positive: Unremarkable Skin: Positive: Clear Musculoskeletal: Normal Range of Motion Extremities: Present: normal - Labs and Meds CBC 03/04/19 Range/Units 05:57 WBC 8.4 (4.5-11.0) K/mm3 RBC 5.12 H (3.65-5.03) M/mm3 Hgb 9.9 L (10.1-14.3) gm/dl Hct 31.0 (30.3-42.9) % Plt Count 506 H (140-440) K/mm3 Comprehensive Metabolic Panel 03/04/19 Range/Units 05:57 Sodium 136 L (137-145) mmol/L Potassium 4.1 (3.6-5.0) mmol/L Chloride 98.4 (98-107) mmol/L Carbon Dioxide 22 (22-30) mmol/L BUN 9 (7-17) mg/dL Creatinine 0.6 L (0.7-1.2) mg/dL Glucose 146 H (65-100) mg/dL Calcium 10.1 (8.4-10.2) mg/dL - Imaging and Cardiology Echo: report reviewed (10/2018: EF 55-60%, small posterior pericardial effusion) - EKG Sinus rhythms and dysrhythmias: sinus rhythm
[2019-03-04] MEDS ORDERED: LEXISCAN IV ONE ×2 (11:00→14:26)
[2019-03-04 12:44] VITALS: BP 129/80
--- NOTE | 2019-03-04 13:33 | Discharge Summary ---
Providers - Providers Date of Admission: 03/03/19 15:11 Date of discharge: 03/04/19 Attending physician: FELIPA RANKIN 03/01/19 11:01 Consult to Physician [CONS] Urgent Comment: Consulting Provider: PARADISE JEAN Physician Instructions: Reason For Exam: cp sob known to you Primary care physician: RENETTA MCNAMARA Hospitalization Procedures: Normal stress thallium Hospital course: Patient presented with panic attack atypical chest pain. Found to have anemia. Patient diagnosed with symptomatic anemia. Pain resolved after transfusion. The contacts also well-controlled of the transfusion as well. Patient had negative stress tests cardiology signed off stable to be discharged. Disposition: - TO HOME OR SELFCARE - Discharge Diagnoses (1) Chest pain Status: Acute Comment: Patient chest pain secondary to symptomatic anemia was atypical. Stable with transfusion. Negative cardiac isoenzymes unremarkable stress thallium. (2) Hypertensive urgency Status: Resolved (3) Symptomatic anemia Status: Acute Comment: Patient will need outpatient LAVATORY ATTENDANT follow-up for possible surgical correction versus medical treatment of fibroid and symptomatic anemia. Discharge with iron. (4) Depression Status: Chronic Qualifiers: Depression Type: unspecified Qualified Code(s): F32.9 - Major depressive disorder, single episode, unspecified (5) Insulin dependent diabetes mellitus Status: Chronic (6) Uterine fibroid Status: Chronic Qualifiers: Uterine leiomyoma location: unspecified location Qualified Code(s): D25.9 - Leiomyoma of uterus, unspecified Comment: Follow-up with LAVATORY ATTENDANT as outpatient for surgical versus medical correction. Core Measure Documentation - Palliative Care Palliative Care/ Comfort Measures: Not Applicable - Core Measures Any of the following diagnoses?: none Exam - Constitutional Vitals: Temp Pulse Resp BP Pulse Ox 98.6 F 97 H 18 129/80 97 03/04/19 08:27 03/04/19 08:27 03/04/19 08:27 03/04/19 10:20 03/04/19 08:27 General appearance: Present: no acute distress, well-nourished - EENT Eyes: Present: PERRL ENT: hearing intact, clear oral mucosa - Neck Neck: Present: supple, normal ROM - Respiratory Respiratory effort: normal Respiratory: bilateral: CTA - Cardiovascular Heart Sounds: Present: S1 & S2. Absent: rub, click - Extremities Extremities: pulses symmetrical, No edema Peripheral Pulses: within normal limits - Abdominal General gastrointestinal: Present: soft, non-tender, non-distended, normal bowel sounds Female genitourinary: Present: normal - Integumentary Integumentary: Present: clear, warm, dry - Musculoskeletal Musculoskeletal: gait normal, strength equal bilaterally - Psychiatric Psychiatric: appropriate mood/affect, intact judgment & insight - Neurologic Neurologic: CNII-XII intact, moves all extremities Plan Activity: no restrictions Diet: low cholesterol, low salt, diabetic Follow up with: PRIMARY CARE, [Referring] - 3-5 Days Prescriptions: Losartan [Cozaar] 25 mg PO DAILY #30 tablet Ferrous Sulfate [Feosol 325 MG tab] 325 mg PO DAILY #30 tablet metFORMIN [Glucophage] 1,000 mg PO BID #60 tablet Famotidine [Pepcid] 20 mg PO BID #60 tablet oxyCODONE /ACETAMINOPHEN [Percocet 5/325 mg] 1 tab PO Q6H PRN #10 tablet PRN Reason: Pain, Moderate (4-6)
[2019-03-04] MEDS: HumaLOG SUB-Q SCH ×2 (13:47→13:48)
[2019-03-04] MEDS: COLACE PO SCH (13:48)
[2019-03-04] MEDS: LEXAPRO PO SCH (13:48)
[2019-03-04] MEDS: GLUCOPHAGE PO SCH (13:48)
[2019-03-04] MEDS: BABY ASPIRIN PO SCH (13:48)
[2019-03-04] MEDS: PEPCID PO SCH (13:48)
[2019-03-04] MEDS: FEOSOL PO SCH (13:48)
[2019-03-04] MEDS: COZAAR PO SCH (13:48)
[2019-03-04] MEDS: SODIUM CHLORIDE FLUSH SYRINGE 10 ML IV SCH (13:49)
[2019-03-04] MEDS: NORVASC PO SCH (13:49)
--- NOTE | 2019-03-07 00:12 | Treadmill Report ---
REFERRING PHYSICIAN: Dr. Rosales. NUCLEAR STRESS TEST PROTOCOL: The patient was brought to the stress lab in postoperative state, given 10 mCi of technetium 99m at rest. The patient underwent rest imaging. The patient underwent Lexiscan stress test per standard protocol. At peak stress, the patient was given 26 mCi of technetium 99m. Shortly underwent stress imaging, raw imaging reveals mild GI artifact, no significant motion effect. SPECT images examined carefully in horizontal long axis, vertical long axis, short axis views. There is normal homogenous uptake of radioisotope in all reported segments. No evidence of significant fixed or reversible perfusion defects suggestive of prior infarction or ischemia. Gated wall motion reveals normal systolic thickening, calculated ejection fraction of 60%. No TID. CONCLUSIONS: 1. Normal myocardial perfusion scan without evidence of active ischemia or prior infarction. 2. Normal left ventricular systolic performance without evidence of transient ischemic dilatation or stress-induced segmental wall motion abnormalities. JOB# [id number] SBEli/MITESH
== END 2019-03-04 14:26 | disposition home or self-care (01) | DRG 812 ==
LOC: ED 10:23 → 4A 12:50 → OBSVTOIN 03-03 15:11
PROVIDERS: ADMIT Internal Medicine; ATTEND Internal Medicine
PROC: 30233N1 Transfusion of Nonautologous Red Blood Cells into Peripheral Vein, Percutaneous Approach (ICD-10-PCS; principal; 2019-03-01)
DX: D64.9 Anemia, unspecified (principal); E87.1 Hypo-osmolality and hyponatremia; I16.0 Hypertensive urgency; E66.01 Morbid (severe) obesity due to excess calories; F32.9 Major depressive disorder, single episode, unspecified; E11.9 Type 2 diabetes mellitus without complications; G43.909 Migraine, unspecified, not intractable, without status migrainosus; D25.9 Leiomyoma of uterus, unspecified; F41.9 Anxiety disorder, unspecified; Z68.36 Body mass index [BMI] 36.0-36.9, adult; Z79.899 Other long term (current) drug therapy; Z79.82 Long term (current) use of aspirin; Z88.8 Allergy status to other drugs, medicaments and biological substances; Z87.891 Personal history of nicotine dependence; Z79.4 Long term (current) use of insulin; Z82.49 Family history of ischemic heart disease and other diseases of the circulatory system
CPT/HCPCS: 36415; 36430; 71046; 71275; 78452; 80048; 80053; 82271; 82550; 82962; 83036; 83735; 83880; 84484; 85007; 85025; 85027; 85379; 86850; 86900; 86901; 86920; 93005; 93010; 93017; 93306; 96374; G0378; A9502; J1815; J1940; J2785; J7030; J7040; P9016; Q9967

== ENCOUNTER 2019-04-13 07:18 | Emergency (ER) | payer BC ==
[2019-04-13 07:34] VITALS: BP 158/86
[2019-04-13] MEDS ORDERED: ASPIRIN PO ONE (07:36)
[2019-04-13 08:37] LABS: Hematocrit 31.8 % (30.3-42.9); Hemoglobin 9.9 gm/dl (10.1-14.3); Mean Corpuscular HGB Conc 31 % (30-34); Platelet Count 362 K/mm3 (140-440); Red Blood Count 5.03 M/mm3 (3.65-5.03)
[2019-04-13 08:50] LABS: BUN/Creatinine Ratio 14; Blood Urea Nitrogen 10 mg/dL (7-17); Calcium 10.1 mg/dL (8.4-10.2); Hemolysis Index 1
[2019-04-13 08:51] LABS: Bilirubin,Urine NEG (Negative); Blood,Urine NEG (Negative); Color,Urine Straw (Yellow); Urobilinogen,Urine < 2.0 mg/dL (<2.0)
[2019-04-13 08:53] LABS: Mean Corpuscular Volume 63 fl (79-97); Red Cell Distribution Width 27.8 % (13.2-15.2)
--- NOTE | 2019-04-13 09:06 | Emergency Department Report ---
ED Chest Pain HPI - General Chief Complaint: Anxiety Stated Complaint: ANXIETY/CHEST/ABD PAIN Time Seen by Provider: 04/13/19 08:19 Source: patient Mode of arrival: Ambulatory Limitations: No Limitations - History of Present Illness Initial Comments: Chief complaint: "I had a panic attack at work." HPI: 38-year-old female with history of hypertension, anemia, uterine fibroid, diabetes mellitus, chest pain presents with shortness of breath and chest pain at work. She felt anxious. This is her ninth panic attack this year. She was admitted in February for 4 days for further evaluation. Pain has subsided with rest and relaxation. She has mild chest discomfort. However the prominent symptom is being unable to breathe. She feels as if she cannot get her breath. Discomfort was initially severe. Now resolved. In February she had a normal stress thallium distress. Her diagnosis was symptomatic anemia at that time. She received blood transfusion. She is followed by Dr. Stark sap portal consultant. She is also followed by PCP Dr. Ying Mcnamara. -: Sudden, This morning Onset: during rest, during exertion Pain Location: substernal Pain Radiation: none Severity: severe Severity scale (0 -10): 10 Quality: heaviness Consistency: now resolved Improves With: rest Worsens With: exertion Context: other (hospital admission last month) - Related Data Home Medications Medication Instructions Recorded Confirmed Last Taken Insulin Degludec/Liraglutide 15 mg SQ QPM 04/23/18 03/01/19 Unknown [Xultophy 100 Unit-3.6MG/ml Pen] amLODIPine [Norvasc] 20 mg PO DAILY 04/23/18 03/01/19 Unknown Aspirin BABY CHEW TAB 81 mg PO DAILY 03/01/19 03/01/19 Unknown Escitalopram 10 mg PO DAILY 03/01/19 03/01/19 Unknown Previous Rx's Medication Instructions Recorded Last Taken Type Aspirin [Aspirin BABY CHEW TAB] 81 mg PO QDAY tab.chew 03/04/19 Unknown Rx Docusate Sodium [Colace CAP] 100 mg PO BID capsule 03/04/19 Unknown Rx Escitalopram [Lexapro] 10 mg PO DAILY tablet 03/04/19 Unknown Rx Famotidine [Pepcid] 20 mg PO BID #60 tablet 03/04/19 Unknown Rx Ferrous Sulfate [Feosol 325 MG tab] 325 mg PO DAILY #30 tablet 03/04/19 Unknown Rx HYDROmorphone [Dilaudid] 0.5 mg IV Q3H PRN syringe 03/04/19 Unknown Rx Insulin Glargine [Lantus VIAL] 20 units SUB-Q QHS units 03/04/19 Unknown Rx Lispro Insulin [HumaLOG] 0 unit SUB-Q ACHS units 03/04/19 Unknown Rx Losartan [Cozaar] 25 mg PO DAILY #30 tablet 03/04/19 Unknown Rx metFORMIN [Glucophage] 1,000 mg PO BID #60 tablet 03/04/19 Unknown Rx oxyCODONE /ACETAMINOPHEN [Percocet 1 tab PO Q6H PRN #10 tablet 03/04/19 Unknown Rx 5/325 mg] Allergies Allergy/AdvReac Type Severity Reaction Status Date / Time aspirin Allergy Swelling Verified 03/01/19 10:24 Heart Score - HEART Score History: Slightly suspicious EKG: Non-specific Age: < 45 Risk factors: 1-2 risk factors Troponin: < normal limit HEART Score: 2 ED Review of Systems ROS: Stated complaint: ANXIETY/CHEST/ABD PAIN Other details as noted in HPI Comment: All other systems reviewed and negative Constitutional: denies: fever, malaise Respiratory: shortness of breath Cardiovascular: chest pain ED Past Medical Hx - Past Medical History Previous Medical History?: Yes Hx Hypertension: Yes Hx Diabetes: Yes Hx Headaches / Migraines: Yes Hx Psychiatric Treatment: Yes (anxiety) Hx HIV: No Additional medical history: Uterine fibroids, anemia, blood transfusion,venous reflux disease - Surgical History Additional Surgical History: D & C. LEFT GREAT TOE SURGERY, bilateral lower venous ablations - Social History Smoking Status: Former Smoker Substance Use Type: None - Medications Home Medications: Home Medications Medication Instructions Recorded Confirmed Last Taken Type Insulin Degludec/Liraglutide 15 mg SQ QPM 04/23/18 03/01/19 Unknown History [Xultophy 100 Unit-3.6MG/ml Pen] amLODIPine [Norvasc] 20 mg PO DAILY 04/23/18 03/01/19 Unknown History Aspirin BABY CHEW TAB 81 mg PO DAILY 03/01/19 03/01/19 Unknown History Escitalopram 10 mg PO DAILY 03/01/19 03/01/19 Unknown History Aspirin [Aspirin BABY CHEW TAB] 81 mg PO QDAY tab.chew 03/04/19 Unknown Rx Docusate Sodium [Colace CAP] 100 mg PO BID capsule 03/04/19 Unknown Rx Escitalopram [Lexapro] 10 mg PO DAILY tablet 03/04/19 Unknown Rx Famotidine [Pepcid] 20 mg PO BID #60 tablet 03/04/19 Unknown Rx Ferrous Sulfate [Feosol 325 MG tab] 325 mg PO DAILY #30 tablet 03/04/19 Unknown Rx HYDROmorphone [Dilaudid] 0.5 mg IV Q3H PRN syringe 03/04/19 Unknown Rx Insulin Glargine [Lantus VIAL] 20 units SUB-Q QHS units 03/04/19 Unknown Rx Lispro Insulin [HumaLOG] 0 unit SUB-Q ACHS units 03/04/19 Unknown Rx Losartan [Cozaar] 25 mg PO DAILY #30 tablet 03/04/19 Unknown Rx metFORMIN [Glucophage] 1,000 mg PO BID #60 tablet 03/04/19 Unknown Rx oxyCODONE /ACETAMINOPHEN [Percocet 1 tab PO Q6H PRN #10 tablet 03/04/19 Unknown Rx 5/325 mg] ED Physical Exam - General Limitations: No Limitations General appearance: alert, in no apparent distress - Head Head exam: Present: atraumatic, normocephalic - Eye Eye exam: Present: normal appearance - ENT ENT exam: Present: mucous membranes moist - Neck Neck exam: Present: normal inspection, full ROM - Respiratory Respiratory exam: Present: normal lung sounds bilaterally. Absent: respiratory distress, wheezes, rales, rhonchi - Cardiovascular Cardiovascular Exam: Present: regular rate, normal rhythm, normal heart sounds. Absent: systolic murmur, diastolic murmur, rubs, gallop - GI/Abdominal GI/Abdominal exam: Present: soft, normal bowel sounds. Absent: distended, tenderness, guarding, rebound - Extremities Exam Extremities exam: Present: normal inspection - Back Exam Back exam: Present: normal inspection - Neurological Exam Neurological exam: Present: alert, oriented X3 - Psychiatric Psychiatric exam: Present: normal affect, normal mood - Skin Skin exam: Present: warm, dry, intact, normal color. Absent: rash ED Course Vital Signs 04/13/19 07:32 Temperature 98.2 F Pulse Rate 89 Respiratory 18 Rate Blood Pressure 158/86 O2 Sat by Pulse 98 Oximetry TOI score - Toi Score Age > 65: (0) No Aspirin use within the Past 7 Days: (0) No 3 or more CAD Risk Factors: (1) Yes 2 or more Angina events in past 24 hrs: (0) No Known CAD with more than 50% Stenosis: (0) No Elevated Cardiac Markers: (0) No ST Deviation Greater than 0.5mm: (0) No TOI Score: 1 ED Medical Decision Making - Lab Data Result diagrams: 04/13/19 07:55 04/13/19 07:55 Laboratory Results - last 24 hr 04/13/19 04/13/19 04/13/19 07:55 07:55 07:55 WBC 8.1 RBC 5.03 Hgb 9.9 L Hct 31.8 MCV 63 L MCH 20 L MCHC 31 RDW 27.8 H Plt Count 362 Sodium 133 L Potassium 4.2 Chloride 93.2 L Carbon Dioxide 25 Anion Gap 19 BUN 10 Creatinine 0.7 Estimated GFR > 60 BUN/Creatinine Ratio 14 Glucose 379 H Calcium 10.1 Troponin T < 0.010 HCG, Qual Negative Urine Color Urine Turbidity Urine pH Ur Specific [place] Urine Protein Urine Glucose (UA) Urine Ketones Urine Blood Urine Nitrite Urine Bilirubin Urine Urobilinogen Ur Leukocyte Esterase Urine WBC (Auto) Urine RBC (Auto) U Epithel Cells (Auto) 04/13/19 07:57 WBC RBC Hgb Hct MCV MCH MCHC RDW Plt Count Sodium Potassium Chloride Carbon Dioxide Anion Gap BUN Creatinine Estimated GFR BUN/Creatinine Ratio Glucose Calcium Troponin T HCG, Qual Urine Color Straw Urine Turbidity Clear Urine pH 6.0 Ur Specific [place] 1.022 Urine Protein 100 mg/dl Urine Glucose (UA) >=500 Urine Ketones Neg Urine Blood Neg Urine Nitrite Neg Urine Bilirubin Neg Urine Urobilinogen < 2.0 Ur Leukocyte Esterase Tr Urine WBC (Auto) 2.0 Urine RBC (Auto) 1.0 U Epithel Cells (Auto) 2.0 - Medical Decision Making Mrs. Fernandez presents with recurrent chest pain. 9th episode this year. Only mild anemia seen on today's presentation. Hgb 9.9 troponin negative. No indication of cardiac disease or PE. Suspect anxiety or panic attack. Mrs. Fernandez has f/u with PCP DR. ying Mcnamara tomorrow. Critical care attestation.: If time is entered above; I have spent that time in minutes in the direct care of this critically ill patient, excluding procedure time. ED Disposition Clinical Impression: Chest pain, Panic attack Disposition: DC-01 TO HOME OR SELFCARE Is pt being admited?: No Does the pt Need Aspirin: No Condition: Stable Instructions: Chest Pain (ED) Referrals: YING MCNAMARA MD [Staff Physician] - 3-5 Days Forms: Work/School Release Form(ED)
[2019-04-13 10:11] LABS: Hypochromasia 1+; Target Cells Few; Total Cells Counted 100
[2019-04-13 10:13] LABS: Large Platelets Few; Platelet Estimate Consistent w Auto
== END 2019-04-13 09:28 | disposition home or self-care (01) ==
LOC: ED 07:18
DX: F41.0 Panic disorder [episodic paroxysmal anxiety] (principal); R07.2 Precordial pain; I10 Essential (primary) hypertension; E11.9 Type 2 diabetes mellitus without complications; G43.909 Migraine, unspecified, not intractable, without status migrainosus; Z86.2 Personal history of diseases of the blood and blood-forming organs and certain disorders involving the immune mechanism; Z88.6 Allergy status to analgesic agent; Z79.4 Long term (current) use of insulin; Z79.899 Other long term (current) drug therapy; Z87.891 Personal history of nicotine dependence
CPT/HCPCS: 36415; 80048; 81001; 84484; 84703; 85007; 85025; 99284

== ENCOUNTER 2019-06-02 17:07 | Emergency (ER) | payer BC ==
--- NOTE | 2019-06-02 17:36 | Emergency Department Report ---
Blank Doc - Documentation Documentation: 38-year-old female that presents with abscess. This initial assessment/diagnostic orders/clinical plan/treatment(s) is/are subject to change based on patient's health status, clinical progression and re- assessment by fellow clinical providers in the ED. Further treatment and workup at subsequent clinical providers discretion. Patient/guardians urged not to elope from the ED as their condition may be serious if not clinically assessed and managed. Initial orders include: 1- Patient sent to [facility] for further evaluation and treatment 2- I/D
[2019-06-02] MEDS ORDERED: ONDANSETRON 4 MG ODT TAB PO ONE (20:04)
[2019-06-02] MEDS ORDERED: oxyCODONE /ACETAMINOPHEN 5-325MG TAB PO ONE (20:04)
[2019-06-02] MEDS ORDERED: SULFAMETHOXAZOLE/TRIMETHOPRIM 800/160MG DS TAB PO ONE (20:04)
[2019-06-02] MEDS ORDERED: LIDOCAINE-MPF (1%) 10 MG/1 ML VIAL 5 ML INFILTRATI ONE (20:04)
[2019-06-02] MEDS ORDERED: IBUPROFEN 800 MG TAB PO ONE (20:05)
[2019-06-02] MEDS ORDERED: diphenhydrAMINE 25 MG CAP PO ONE (22:08)
--- NOTE | 2019-06-02 22:13 | Emergency Department Report ---
ED General Adult HPI - General Chief complaint: Skin/Abscess/Foreign Body Stated complaint: LEFT ARMPITY ABCESS Time Seen by Provider: 06/02/19 17:35 Source: patient Mode of arrival: Ambulatory Limitations: No Limitations - History of Present Illness Initial comments: Patient is a 38-year-old -[place] female with a history of hypertension, migraine headache, anxiety and [id number] diabetes who presents to the ED with complaint of acute onset persistent painful swollen erythematous maculopapular fluctuant rash on the left axilla for the last 2 weeks worse in the last 2 days. She has states that she is not been able to sleep because of severe pain. Patient denies fever, chills, nausea, vomiting, dizziness, numbness and tingling of left arm, chest pain, shortness of breath or abdominal pain. MD Complaint: left axilla swollen painful erythematous rash -: Sudden, week(s) (2) Location: upper extremity (left axilla) Radiation: non-radiation Severity scale (0 -10): 10 Quality: aching, sharp Consistency: constant Improves with: none - Related Data Home Medications Medication Instructions Recorded Confirmed Last Taken Insulin Degludec/Liraglutide 15 mg SQ QPM 04/23/18 03/01/19 Unknown [Xultophy 100 Unit-3.6MG/ml Pen] amLODIPine [Norvasc] 20 mg PO DAILY 04/23/18 03/01/19 Unknown Aspirin BABY CHEW TAB 81 mg PO DAILY 03/01/19 03/01/19 Unknown Escitalopram 10 mg PO DAILY 03/01/19 03/01/19 Unknown Previous Rx's Medication Instructions Recorded Last Taken Type Aspirin [Aspirin BABY CHEW TAB] 81 mg PO QDAY tab.chew 03/04/19 Unknown Rx Docusate Sodium [Colace CAP] 100 mg PO BID capsule 03/04/19 Unknown Rx Escitalopram [Lexapro] 10 mg PO DAILY tablet 03/04/19 Unknown Rx Famotidine [Pepcid] 20 mg PO BID #60 tablet 03/04/19 Unknown Rx Ferrous Sulfate [Feosol 325 MG tab] 325 mg PO DAILY #30 tablet 03/04/19 Unknown Rx HYDROmorphone [Dilaudid] 0.5 mg IV Q3H PRN syringe 03/04/19 Unknown Rx Insulin Glargine [Lantus VIAL] 20 units SUB-Q QHS units 03/04/19 Unknown Rx Lispro Insulin [HumaLOG] 0 unit SUB-Q ACHS units 03/04/19 Unknown Rx Losartan [Cozaar] 25 mg PO DAILY #30 tablet 03/04/19 Unknown Rx metFORMIN [Glucophage] 1,000 mg PO BID #60 tablet 03/04/19 Unknown Rx oxyCODONE /ACETAMINOPHEN [Percocet 1 tab PO Q6H PRN #10 tablet 03/04/19 Unknown Rx 5/325 mg] Fluconazole [Diflucan TAB] 150 mg PO ONCE #1 tablet 05/14/19 Unknown Rx metroNIDAZOLE [Flagyl] 500 mg PO BID 7 Days #14 tab 05/14/19 Unknown Rx Acetaminophen/Codeine [Tylenol 1 tab PO Q6H PRN #12 tab 06/02/19 Unknown Rx /Codeine # 3 tab] Clindamycin [Clindamycin CAP] 300 mg PO Q8HR #60 capsule 06/02/19 Unknown Rx Ibuprofen [Motrin] 800 mg PO Q8HR PRN #24 tablet 06/02/19 Unknown Rx Ondansetron [Zofran Odt] 4 mg PO Q6HR PRN #20 tab.rapdis 06/02/19 Unknown Rx Sulfamethoxazole/Trimethoprim 1 each PO Q12H #20 tablet 06/02/19 Unknown Rx [Bactrim DS TAB] Allergies Allergy/AdvReac Type Severity Reaction Status Date / Time aspirin Allergy Swelling Verified 05/14/19 16:43 ED Review of Systems ROS: Stated complaint: LEFT ARMPITY ABCESS Other details as noted in HPI Constitutional: denies: chills, fever Eyes: denies: eye pain, eye discharge, vision change ENT: denies: ear pain, throat pain Respiratory: denies: cough, shortness of breath, wheezing Cardiovascular: denies: chest pain, palpitations Endocrine: no symptoms reported Gastrointestinal: denies: abdominal pain, nausea, diarrhea Genitourinary: denies: urgency, dysuria, discharge Musculoskeletal: denies: back pain, joint swelling, arthralgia Skin: rash (erythematous maculopapular fluctuant painful rash on left axilla), change in color. denies: lesions Neurological: denies: headache, weakness, paresthesias Psychiatric: denies: anxiety, depression Hematological/Lymphatic: denies: easy bleeding, easy bruising ED Past Medical Hx - Past Medical History Hx Hypertension: Yes Hx Diabetes: Yes Hx Headaches / Migraines: Yes Hx Psychiatric Treatment: Yes (anxiety) Hx HIV: No Additional medical history: Uterine fibroids, anemia, blood transfusion,venous reflux disease - Surgical History Additional Surgical History: D & C. LEFT GREAT TOE SURGERY, bilateral lower venous ablations - Social History Smoking Status: Never Smoker Substance Use Type: None - Medications Home Medications: Home Medications Medication Instructions Recorded Confirmed Last Taken Type Insulin Degludec/Liraglutide 15 mg SQ QPM 04/23/18 03/01/19 Unknown History [Xultophy 100 Unit-3.6MG/ml Pen] amLODIPine [Norvasc] 20 mg PO DAILY 04/23/18 03/01/19 Unknown History Aspirin BABY CHEW TAB 81 mg PO DAILY 03/01/19 03/01/19 Unknown History Escitalopram 10 mg PO DAILY 03/01/19 03/01/19 Unknown History Aspirin [Aspirin BABY CHEW TAB] 81 mg PO QDAY tab.chew 03/04/19 Unknown Rx Docusate Sodium [Colace CAP] 100 mg PO BID capsule 03/04/19 Unknown Rx Escitalopram [Lexapro] 10 mg PO DAILY tablet 03/04/19 Unknown Rx Famotidine [Pepcid] 20 mg PO BID #60 tablet 03/04/19 Unknown Rx Ferrous Sulfate [Feosol 325 MG tab] 325 mg PO DAILY #30 tablet 03/04/19 Unknown Rx HYDROmorphone [Dilaudid] 0.5 mg IV Q3H PRN syringe 03/04/19 Unknown Rx Insulin Glargine [Lantus VIAL] 20 units SUB-Q QHS units 03/04/19 Unknown Rx Lispro Insulin [HumaLOG] 0 unit SUB-Q ACHS units 03/04/19 Unknown Rx Losartan [Cozaar] 25 mg PO DAILY #30 tablet 03/04/19 Unknown Rx metFORMIN [Glucophage] 1,000 mg PO BID #60 tablet 03/04/19 Unknown Rx oxyCODONE /ACETAMINOPHEN [Percocet 1 tab PO Q6H PRN #10 tablet 03/04/19 Unknown Rx 5/325 mg] Fluconazole [Diflucan TAB] 150 mg PO ONCE #1 tablet 05/14/19 Unknown Rx metroNIDAZOLE [Flagyl] 500 mg PO BID 7 Days #14 tab 05/14/19 Unknown Rx Acetaminophen/Codeine [Tylenol 1 tab PO Q6H PRN #12 tab 06/02/19 Unknown Rx /Codeine # 3 tab] Clindamycin [Clindamycin CAP] 300 mg PO Q8HR #60 capsule 06/02/19 Unknown Rx Ibuprofen [Motrin] 800 mg PO Q8HR PRN #24 tablet 06/02/19 Unknown Rx Ondansetron [Zofran Odt] 4 mg PO Q6HR PRN #20 tab.rapdis 06/02/19 Unknown Rx Sulfamethoxazole/Trimethoprim 1 each PO Q12H #20 tablet 06/02/19 Unknown Rx [Bactrim DS TAB] ED Physical Exam - General Limitations: No Limitations General appearance: alert, in no apparent distress - Head Head exam: Present: atraumatic, normocephalic - Eye Eye exam: Present: normal appearance, PERRL, EOMI Pupils: Present: normal accommodation - ENT ENT exam: Present: normal exam, normal orophraynx, mucous membranes moist, TM's normal bilaterally, normal external ear exam - Neck Neck exam: Present: normal inspection, full ROM - Respiratory Respiratory exam: Present: normal lung sounds bilaterally. Absent: respiratory distress, wheezes, chest wall tenderness, accessory muscle use, decreased breath sounds - Cardiovascular Cardiovascular Exam: Present: normal rhythm, tachycardia, normal heart sounds. Absent: systolic murmur, diastolic murmur, rubs, gallop - GI/Abdominal GI/Abdominal exam: Present: soft, normal bowel sounds. Absent: tenderness, guarding, rebound, hyperactive bowel sounds, hypoactive bowel sounds, organomegaly - Extremities Exam Extremities exam: Present: normal inspection, full ROM, normal capillary refill - Back Exam Back exam: Present: normal inspection, full ROM. Absent: tenderness, CVA tenderness (R), CVA tenderness (L), muscle spasm, paraspinal tenderness - Neurological Exam Neurological exam: Present: alert, oriented X3, CN II-XII intact, normal gait, reflexes normal - Psychiatric Psychiatric exam: Present: normal affect, normal mood - Skin Skin exam: Present: warm, dry, intact, rash (severely tender erythematous maculopapular fluctuant rash in the left axilla), erythema ED Course Vital Signs 06/02/19 06/02/19 17:35 20:22 Temperature 98.6 F Pulse Rate 105 H Respiratory 18 20 Rate Blood Pressure 142/83 O2 Sat by Pulse 100 Oximetry - Reevaluation(s) Reevaluation #1: 06/02/19 22:23 This is a 38-year-old female who presented to the ED with painful swollen erythematous micropapular fluctuant left axilla rash for 2 weeks worse in the last 2 days. In the ED, patient is alert and oriented 3 and is not in distress but appears to be in pain, tachycardic in triage. Patient was treated for pain and given oral antibiotics initially in the ED. The left axilla swollen fluctuant pressure was cleaned thoroughly and local anesthetic lidocaine 1% solution used to provide local anesthesia. The rash was incised and drained and the patient tolerated the procedure well. The wound was cleaned, the predated and packed with iodoform gauze. Patient tolerated the procedure well and the wound was then dressed. On reevaluation, patient's pain is well controlled with medications. Patient slept throughout the procedure. Patient was discharged home pain medications and antibiotics and advised to return to the ED in 2 days for wound recheck and removal. Patient was also advised to follow-up with her primary care physician in 7-10 days for reevaluation or return to the ED immediately if symptoms get worse. - I & D Left Arm Type of Procedure: Simple (left axilla) Site: 5 cm x 5 cm Blade Size: 11 I & D Procedure: betadine prep, sterile drapes applied, sterile dressing applied, gauze wick placed (Iodoform) Progress: Patient tolerated the procedure well. Patient was discharged home on pain medications and antibiotics and advised to follow-up with her primary care physician in 7-10 days for reevaluation. Patient was also advised to return to the ED in 2 days for wound recheck and packing removal. ED Medical Decision Making - Medical Decision Making This is a 38-year-old female who presented to the ED with painful swollen erythematous micropapular fluctuant left axilla rash for 2 weeks worse in the last 2 days. In the ED, patient is alert and oriented 3 and is not in distress but appears to be in pain, tachycardic in triage. Patient was treated for pain and given oral antibiotics initially in the ED. The left axilla swollen fluctuant pressure was cleaned thoroughly and local anesthetic lidocaine 1% solution used to provide local anesthesia. The rash was incised and drained and the patient tolerated the procedure well. The wound was cleaned, the predated and packed with iodoform gauze. Patient tolerated the procedure well and the wound was then dressed. On reevaluation, patient's pain is well controlled with medications. Patient slept throughout the procedure. Patient was discharged home pain medications and antibiotics and advised to return to the ED in 2 days for wound recheck and removal. Patient was also advised to follow-up with her primary care physician in 7-10 days for reevaluation or return to the ED immediately if symptoms get worse. - Differential Diagnosis cellulitis; abscess; folliculitis; hidradenitis suppurativa Critical care attestation.: If time is entered above; I have spent that time in minutes in the direct care of this critically ill patient, excluding procedure time. ED Disposition Clinical Impression: Acute folliculitis, Cellulitis of left axilla Cutaneous abscess of axilla Qualifiers: Laterality: left Qualified Code(s): L02.412 - Cutaneous abscess of left axilla Disposition: - TO HOME OR SELFCARE Is pt being admited?: No Does the pt Need Aspirin: No Condition: Stable Instructions: Cellulitis (ED), Abscess (ED), Folliculitis (ED) Additional Instructions: Take medication with food, drink plenty of fluids and follow-up with your primary care physician in 7-10 days for reevaluation. Return to the ED immedia tely if symptoms get worse. Otherwise return to the ED in 2 days for wound recheck and packing removal. Prescriptions: Sulfamethoxazole/Trimethoprim [Bactrim DS TAB] 1 each PO Q12H #20 tablet Clindamycin [Clindamycin CAP] 300 mg PO Q8HR #60 capsule Ibuprofen [Motrin] 800 mg PO Q8HR PRN #24 tablet PRN Reason: Pain , Severe (7-10) Acetaminophen/Codeine [Tylenol /Codeine # 3 tab] 1 tab PO Q6H PRN #12 tab PRN Reason: Pain , Severe (7-10) Ondansetron [Zofran Odt] 4 mg PO Q6HR PRN #20 tab.rapdis PRN Reason: Nausea Referrals: PRIMARY CARE,MD [Primary Care Provider] - 3-5 Days Time of Disposition: 22:10 Print Language: GREEK
[2019-06-02 23:56] VITALS: BP 136/74
== END 2019-06-02 23:57 | disposition home or self-care (01) ==
LOC: ED 17:07
DX: L02.412 Cutaneous abscess of left axilla (principal); L73.9 Follicular disorder, unspecified; I10 Essential (primary) hypertension; G43.909 Migraine, unspecified, not intractable, without status migrainosus; F41.9 Anxiety disorder, unspecified; E11.9 Type 2 diabetes mellitus without complications; Z79.4 Long term (current) use of insulin; Z79.899 Other long term (current) drug therapy; Z88.6 Allergy status to analgesic agent
CPT/HCPCS: Q0162

== ENCOUNTER 2019-06-05 02:03 | Emergency (ER) | payer SELFPAY ==
[2019-06-05 02:07] VITALS: BP 155/89
[2019-06-05] MEDS ORDERED: ONDANSETRON 4 MG ODT TAB PO ONE (04:50)
--- NOTE | 2019-06-05 04:53 | Emergency Department Report ---
ED Recheck HPI - General Chief Complaint: Laceration/Recheck/Suture Stated Complaint: BANDAGE CHANGED UNDER ARM Time Seen by Provider: 06/05/19 04:49 Source: patient Mode of arrival: Ambulatory Limitations: No Limitations - History of Present Illness MD Complaint: wound re-check -: days(s) (2) Initial Visit For: abscess Returns Today for: wound recheck Symptoms Since Prior Visit: no new symptoms Context: planned re-check Associated Symptoms: none - Related Data Home Medications Medication Instructions Recorded Confirmed Last Taken Insulin Degludec/Liraglutide 15 mg SQ QPM 04/23/18 03/01/19 Unknown [Xultophy 100 Unit-3.6MG/ml Pen] amLODIPine [Norvasc] 20 mg PO DAILY 04/23/18 03/01/19 Unknown Aspirin BABY CHEW TAB 81 mg PO DAILY 03/01/19 03/01/19 Unknown Escitalopram 10 mg PO DAILY 03/01/19 03/01/19 Unknown Previous Rx's Medication Instructions Recorded Last Taken Type Aspirin [Aspirin BABY CHEW TAB] 81 mg PO QDAY tab.chew 03/04/19 Unknown Rx Docusate Sodium [Colace CAP] 100 mg PO BID capsule 03/04/19 Unknown Rx Escitalopram [Lexapro] 10 mg PO DAILY tablet 03/04/19 Unknown Rx Famotidine [Pepcid] 20 mg PO BID #60 tablet 03/04/19 Unknown Rx Ferrous Sulfate [Feosol 325 MG tab] 325 mg PO DAILY #30 tablet 03/04/19 Unknown Rx HYDROmorphone [Dilaudid] 0.5 mg IV Q3H PRN syringe 03/04/19 Unknown Rx Insulin Glargine [Lantus VIAL] 20 units SUB-Q QHS units 03/04/19 Unknown Rx Lispro Insulin [HumaLOG] 0 unit SUB-Q ACHS units 03/04/19 Unknown Rx Losartan [Cozaar] 25 mg PO DAILY #30 tablet 03/04/19 Unknown Rx metFORMIN [Glucophage] 1,000 mg PO BID #60 tablet 03/04/19 Unknown Rx oxyCODONE /ACETAMINOPHEN [Percocet 1 tab PO Q6H PRN #10 tablet 03/04/19 Unknown Rx 5/325 mg] Fluconazole [Diflucan TAB] 150 mg PO ONCE #1 tablet 05/14/19 Unknown Rx metroNIDAZOLE [Flagyl] 500 mg PO BID 7 Days #14 tab 05/14/19 Unknown Rx Acetaminophen/Codeine [Tylenol 1 tab PO Q6H PRN #12 tab 06/02/19 Unknown Rx /Codeine # 3 tab] Clindamycin [Clindamycin CAP] 300 mg PO Q8HR #60 capsule 06/02/19 Unknown Rx Ibuprofen [Motrin] 800 mg PO Q8HR PRN #24 tablet 06/02/19 Unknown Rx Ondansetron [Zofran Odt] 4 mg PO Q6HR PRN #20 tab.rapdis 06/02/19 Unknown Rx Sulfamethoxazole/Trimethoprim 1 each PO Q12H #20 tablet 06/02/19 Unknown Rx [Bactrim DS TAB] Allergies Allergy/AdvReac Type Severity Reaction Status Date / Time aspirin Allergy Swelling Verified 05/14/19 16:43 ED Review of Systems ROS: Stated complaint: BANDAGE CHANGED UNDER ARM Other details as noted in HPI Comment: All other systems reviewed and negative Constitutional: denies: chills, fever Skin: other (reports abscess) ED Past Medical Hx - Past Medical History Hx Hypertension: Yes Hx Diabetes: Yes Hx Headaches / Migraines: Yes Hx Psychiatric Treatment: Yes (anxiety) Hx HIV: No Additional medical history: Uterine fibroids, anemia, blood transfusion,venous reflux disease - Surgical History Additional Surgical History: D & C. LEFT GREAT TOE SURGERY, bilateral lower venous ablations - Social History Smoking Status: Never Smoker Substance Use Type: None - Medications Home Medications: Home Medications Medication Instructions Recorded Confirmed Last Taken Type Insulin Degludec/Liraglutide 15 mg SQ QPM 04/23/18 03/01/19 Unknown History [Xultophy 100 Unit-3.6MG/ml Pen] amLODIPine [Norvasc] 20 mg PO DAILY 04/23/18 03/01/19 Unknown History Aspirin BABY CHEW TAB 81 mg PO DAILY 03/01/19 03/01/19 Unknown History Escitalopram 10 mg PO DAILY 03/01/19 03/01/19 Unknown History Aspirin [Aspirin BABY CHEW TAB] 81 mg PO QDAY tab.chew 03/04/19 Unknown Rx Docusate Sodium [Colace CAP] 100 mg PO BID capsule 03/04/19 Unknown Rx Escitalopram [Lexapro] 10 mg PO DAILY tablet 03/04/19 Unknown Rx Famotidine [Pepcid] 20 mg PO BID #60 tablet 03/04/19 Unknown Rx Ferrous Sulfate [Feosol 325 MG tab] 325 mg PO DAILY #30 tablet 03/04/19 Unknown Rx HYDROmorphone [Dilaudid] 0.5 mg IV Q3H PRN syringe 03/04/19 Unknown Rx Insulin Glargine [Lantus VIAL] 20 units SUB-Q QHS units 03/04/19 Unknown Rx Lispro Insulin [HumaLOG] 0 unit SUB-Q ACHS units 03/04/19 Unknown Rx Losartan [Cozaar] 25 mg PO DAILY #30 tablet 03/04/19 Unknown Rx metFORMIN [Glucophage] 1,000 mg PO BID #60 tablet 03/04/19 Unknown Rx oxyCODONE /ACETAMINOPHEN [Percocet 1 tab PO Q6H PRN #10 tablet 03/04/19 Unknown Rx 5/325 mg] Fluconazole [Diflucan TAB] 150 mg PO ONCE #1 tablet 05/14/19 Unknown Rx metroNIDAZOLE [Flagyl] 500 mg PO BID 7 Days #14 tab 05/14/19 Unknown Rx Acetaminophen/Codeine [Tylenol 1 tab PO Q6H PRN #12 tab 06/02/19 Unknown Rx /Codeine # 3 tab] Clindamycin [Clindamycin CAP] 300 mg PO Q8HR #60 capsule 06/02/19 Unknown Rx Ibuprofen [Motrin] 800 mg PO Q8HR PRN #24 tablet 06/02/19 Unknown Rx Ondansetron [Zofran Odt] 4 mg PO Q6HR PRN #20 tab.rapdis 06/02/19 Unknown Rx Sulfamethoxazole/Trimethoprim 1 each PO Q12H #20 tablet 06/02/19 Unknown Rx [Bactrim DS TAB] ED Physical Exam - General Limitations: No Limitations General appearance: alert, in no apparent distress - Head Head exam: Present: atraumatic, normocephalic - Eye Eye exam: Present: normal appearance - ENT ENT exam: Present: mucous membranes moist - Neck Neck exam: Present: normal inspection - Respiratory Respiratory exam: Present: normal lung sounds bilaterally. Absent: respiratory distress - Cardiovascular Cardiovascular Exam: Present: regular rate, normal rhythm - GI/Abdominal GI/Abdominal exam: Absent: distended - Extremities Exam Extremities exam: Present: normal inspection - Neurological Exam Neurological exam: Present: alert, oriented X3 - Psychiatric Psychiatric exam: Present: normal affect, normal mood - Skin Skin exam: Present: other (packing removed from left axilla abscess; no erythema present; healing well) ED Course Vital Signs 06/05/19 02:05 Temperature 98.4 F Pulse Rate 94 H Respiratory 18 Rate Blood Pressure 155/89 O2 Sat by Pulse 97 Oximetry Critical care attestation.: If time is entered above; I have spent that time in minutes in the direct care of this critically ill patient, excluding procedure time. ED Disposition Clinical Impression: Encounter for recheck of abscess following incision and drainage Disposition: - TO HOME OR SELFCARE Is pt being admited?: No Condition: Stable Referrals: RENETTA MCNAMARA MD [Primary Care Provider] - 3-5 Days PRIMARY CAREMD [Referring] - 3-5 Days Time of Disposition: 04:52
== END 2019-06-05 05:36 | disposition home or self-care (01) ==
LOC: ED 02:03
DX: L02.413 Cutaneous abscess of right upper limb (principal); I10 Essential (primary) hypertension; E11.9 Type 2 diabetes mellitus without complications; G43.909 Migraine, unspecified, not intractable, without status migrainosus; F41.9 Anxiety disorder, unspecified; Z79.899 Other long term (current) drug therapy; Z88.6 Allergy status to analgesic agent
CPT/HCPCS: Q0162

== ENCOUNTER 2019-07-01 10:03 | Emergency (ER) | payer SELFPAY ==
[2019-07-01 10:10] VITALS: BP 149/85
--- NOTE | 2019-07-01 10:53 | XRay Report ---
XR neck soft tissue INDICATION: swelling. COMPARISON: None available. FINDINGS: The patient had a poor degree of inspiration. The epiglottis is not well evaluated on this exam due t o degree of inspiration. The subglottic airway appears normal. There does appear to be subcutaneous edema in the patient's chi n on and possibly in the left side of the face. If there is clinical concern for epiglottitis, further evaluation with neck CT with contrast should b e considered. Signer Name: Nabil Villavicencio MD Signed: 07/01/2019 10:49 AM Workstation Name: [id number]
[2019-07-01 12:58] LABS: Basophils # (Auto) 0.1 K/mm3 (0.0-0.1); Basophils % (Auto) 1.1 % (0.0-1.8); Eosinophils # (Auto) 0.2 K/mm3 (0.0-0.4); Eosinophils % (Auto) 3.5 % (0.0-4.3); Hematocrit 26.4 % (30.3-42.9); Hemoglobin 7.9 gm/dl (10.1-14.3); Lymphocytes # (Auto) 1.3 K/mm3 (1.2-5.4); Lymphocytes % (Auto) 20.3 % (13.4-35.0); Mean Corpuscular HGB Conc 30 % (30-34); Monocytes # (Auto) 0.6 K/mm3 (0.0-0.8); Monocytes % (Auto) 8.8 % (0.0-7.3); Platelet Count 456 K/mm3 (140-440); Red Blood Count 4.52 M/mm3 (3.65-5.03); Red Cell Distribution Width 19.6 % (13.2-15.2)
[2019-07-01 13:00] LABS: Mean Corpuscular Volume 58 fl (79-97)
[2019-07-01 13:44] LABS: BUN/Creatinine Ratio 9; Blood Urea Nitrogen 6 mg/dL (7-17); Calcium 9.8 mg/dL (8.4-10.2); Hemolysis Index 0
[2019-07-01] MEDS ORDERED: INSULIN REGULAR, HUMAN 100 UNITS/1 ML SUB-Q ONE (14:31)
--- NOTE | 2019-07-01 14:34 | Emergency Department Report ---
ED General Adult HPI - General Chief complaint: Dental/Oral Stated complaint: SWOLLEN FACE Time Seen by Provider: 07/01/19 12:15 Source: patient Mode of arrival: Ambulatory Limitations: No Limitations - History of Present Illness Initial comments: 38-year-old female presents to the emergency department for evaluation of swelling at the angle of the mandible bilaterally. She states that she was seen by provider about a week ago for the same. She has had swelling for at least 2 weeks. She seemed to suggest a 1. that this was a recurrent problem. She is no known history of sarcoid. She is type II previously insulin-dependent diabetic. She is not on insulin now. Said no recent fever or chills. She does not have a sore throat or any dental issues. She does not complain of some shortness of breath. She denies any previous parotid or thyroid problems. -: Gradual, week(s) Location: face Quality: burning Consistency: intermittent Improves with: none Worsens with: none Associated Symptoms: denies other symptoms Treatments Prior to Arrival: none - Related Data Home Medications Medication Instructions Recorded Confirmed Last Taken Insulin Degludec/Liraglutide 15 mg SQ QPM 04/23/18 03/01/19 Unknown [Xultophy 100 Unit-3.6MG/ml Pen] amLODIPine 20 mg PO DAILY 04/23/18 03/01/19 Unknown Aspirin BABY CHEW TAB 81 mg PO DAILY 03/01/19 03/01/19 Unknown Escitalopram 10 mg PO DAILY 03/01/19 03/01/19 Unknown Previous Rx's Medication Instructions Recorded Last Taken Type Aspirin [Aspirin BABY CHEW TAB] 81 mg PO QDAY tab.chew 03/04/19 Unknown Rx Docusate Sodium [Colace CAP] 100 mg PO BID capsule 03/04/19 Unknown Rx Escitalopram [Lexapro] 10 mg PO DAILY tablet 03/04/19 Unknown Rx Famotidine [Pepcid] 20 mg PO BID #60 tablet 03/04/19 Unknown Rx Ferrous Sulfate [Feosol 325 MG tab] 325 mg PO DAILY #30 tablet 03/04/19 Unknown Rx HYDROmorphone [Dilaudid] 0.5 mg IV Q3H PRN syringe 03/04/19 Unknown Rx Insulin Glargine [Lantus VIAL] 20 units SUB-Q QHS units 03/04/19 Unknown Rx Lispro Insulin [HumaLOG] 0 unit SUB-Q ACHS units 03/04/19 Unknown Rx Losartan [Cozaar] 25 mg PO DAILY #30 tablet 03/04/19 Unknown Rx metFORMIN [Glucophage] 1,000 mg PO BID #60 tablet 03/04/19 Unknown Rx oxyCODONE /ACETAMINOPHEN [Percocet 1 tab PO Q6H PRN #10 tablet 03/04/19 Unknown Rx 5/325 mg] Fluconazole [Diflucan TAB] 150 mg PO ONCE #1 tablet 05/14/19 Unknown Rx metroNIDAZOLE [Flagyl] 500 mg PO BID 7 Days #14 tab 05/14/19 Unknown Rx Acetaminophen/Codeine [Tylenol 1 tab PO Q6H PRN #12 tab 06/02/19 Unknown Rx /Codeine # 3 tab] Clindamycin [Clindamycin CAP] 300 mg PO Q8HR #60 capsule 06/02/19 Unknown Rx Ibuprofen [Motrin] 800 mg PO Q8HR PRN #24 tablet 06/02/19 Unknown Rx Ondansetron [Zofran Odt] 4 mg PO Q6HR PRN #20 tab.rapdis 06/02/19 Unknown Rx Sulfamethoxazole/Trimethoprim 1 each PO Q12H #20 tablet 06/02/19 Unknown Rx [Bactrim DS TAB] Insulin Regular, Human [HumuLIN R] 1 units IV Q6HR #1 bottle 07/01/19 Unknown Rx Sulfamethoxazole/Trimethoprim 1 each PO BID #20 tablet 07/01/19 Unknown Rx [Bactrim DS TAB] Allergies Allergy/AdvReac Type Severity Reaction Status Date / Time aspirin Allergy Swelling Verified 05/14/19 16:43 ED Review of Systems ROS: Stated complaint: SWOLLEN FACE Other details as noted in HPI Constitutional: denies: chills, fever Eyes: denies: eye pain, eye discharge, vision change ENT: as per HPI. denies: ear pain, throat pain Respiratory: denies: cough, shortness of breath, wheezing Cardiovascular: denies: chest pain, palpitations Endocrine: no symptoms reported Gastrointestinal: denies: abdominal pain, nausea, diarrhea Genitourinary: denies: urgency, dysuria, discharge Musculoskeletal: denies: back pain, joint swelling, arthralgia Skin: denies: rash, lesions Neurological: denies: headache, weakness, paresthesias Psychiatric: denies: anxiety, depression Hematological/Lymphatic: denies: easy bleeding, easy bruising ED Past Medical Hx - Past Medical History Previous Medical History?: Yes Hx Hypertension: Yes Hx Diabetes: Yes Hx Headaches / Migraines: Yes Hx Psychiatric Treatment: Yes (anxiety) Hx HIV: No Additional medical history: Uterine fibroids, anemia, blood transfusion,venous reflux disease - Surgical History Past Surgical History?: Yes Additional Surgical History: D & C. LEFT GREAT TOE SURGERY, bilateral lower venous ablations - Social History Smoking Status: Current Some Day Smoker Substance Use Type: None - Medications Home Medications: Home Medications Medication Instructions Recorded Confirmed Last Taken Type Insulin Degludec/Liraglutide 15 mg SQ QPM 04/23/18 03/01/19 Unknown History [Xultophy 100 Unit-3.6MG/ml Pen] amLODIPine 20 mg PO DAILY 04/23/18 03/01/19 Unknown History Aspirin BABY CHEW TAB 81 mg PO DAILY 03/01/19 03/01/19 Unknown History Escitalopram 10 mg PO DAILY 03/01/19 03/01/19 Unknown History Aspirin [Aspirin BABY CHEW TAB] 81 mg PO QDAY tab.chew 03/04/19 Unknown Rx Docusate Sodium [Colace CAP] 100 mg PO BID capsule 03/04/19 Unknown Rx Escitalopram [Lexapro] 10 mg PO DAILY tablet 03/04/19 Unknown Rx Famotidine [Pepcid] 20 mg PO BID #60 tablet 03/04/19 Unknown Rx Ferrous Sulfate [Feosol 325 MG tab] 325 mg PO DAILY #30 tablet 03/04/19 Unknown Rx HYDROmorphone [Dilaudid] 0.5 mg IV Q3H PRN syringe 03/04/19 Unknown Rx Insulin Glargine [Lantus VIAL] 20 units SUB-Q QHS units 03/04/19 Unknown Rx Lispro Insulin [HumaLOG] 0 unit SUB-Q ACHS units 03/04/19 Unknown Rx Losartan [Cozaar] 25 mg PO DAILY #30 tablet 03/04/19 Unknown Rx metFORMIN [Glucophage] 1,000 mg PO BID #60 tablet 03/04/19 Unknown Rx oxyCODONE /ACETAMINOPHEN [Percocet 1 tab PO Q6H PRN #10 tablet 03/04/19 Unknown Rx 5/325 mg] Fluconazole [Diflucan TAB] 150 mg PO ONCE #1 tablet 05/14/19 Unknown Rx metroNIDAZOLE [Flagyl] 500 mg PO BID 7 Days #14 tab 05/14/19 Unknown Rx Acetaminophen/Codeine [Tylenol 1 tab PO Q6H PRN #12 tab 06/02/19 Unknown Rx /Codeine # 3 tab] Clindamycin [Clindamycin CAP] 300 mg PO Q8HR #60 capsule 06/02/19 Unknown Rx Ibuprofen [Motrin] 800 mg PO Q8HR PRN #24 tablet 06/02/19 Unknown Rx Ondansetron [Zofran Odt] 4 mg PO Q6HR PRN #20 tab.rapdis 06/02/19 Unknown Rx Sulfamethoxazole/Trimethoprim 1 each PO Q12H #20 tablet 06/02/19 Unknown Rx [Bactrim DS TAB] Insulin Regular, Human [HumuLIN R] 1 units IV Q6HR #1 bottle 07/01/19 Unknown Rx Sulfamethoxazole/Trimethoprim 1 each PO BID #20 tablet 07/01/19 Unknown Rx [Bactrim DS TAB] ED Physical Exam - General Limitations: No Limitations General appearance: alert, in no apparent distress - Head Head exam: Present: atraumatic, normocephalic - Eye Eye exam: Present: normal appearance - ENT ENT exam: Present: mucous membranes moist, other (patient has bilateral parotid swelling. There is no erythema. There is no fluctuance.) - Neck Neck exam: Present: normal inspection, full ROM, thyromegaly (there is suggestion of thyromegaly). Absent: tenderness, meningismus, lymphadenopathy - Respiratory Respiratory exam: Present: normal lung sounds bilaterally. Absent: respiratory distress - Cardiovascular Cardiovascular Exam: Present: regular rate, normal rhythm. Absent: systolic murmur, diastolic murmur, rubs, gallop - GI/Abdominal GI/Abdominal exam: Present: soft, normal bowel sounds. Absent: distended, tenderness, guarding, rebound, rigid - Extremities Exam Extremities exam: Present: normal inspection - Back Exam Back exam: Present: normal inspection - Neurological Exam Neurological exam: Present: alert, oriented X3, CN II-XII intact. Absent: motor sensory deficit - Psychiatric Psychiatric exam: Present: normal affect, normal mood - Skin Skin exam: Present: warm, dry, intact, normal color. Absent: rash ED Course Vital Signs 07/01/19 10:06 Temperature 98.4 F Pulse Rate 97 H Respiratory 18 Rate Blood Pressure 149/85 O2 Sat by Pulse 100 Oximetry - Reevaluation(s) Reevaluation #1: The patient is fully ambulatory about the emergency department now. She looks reasonably well. She has no complaints. She certainly is not toxic. She tells me that she had "panic attacks from insulin. I explained to her that this is not a side effect of insulin at the body naturally makes insulin. I will give her 6 units of insulin subcutaneous now. She does have an elevated anion gap. I don't think she is in DKA. She states that she conceived Ying Mcnamara her provider in the morning for follow-up on her hyperglycemia. I think this is reasonable at this time. I'm going to place her on oral antibiotic. S he is already on a gram twice a day of metformin. 07/01/19 14:32 ED Medical Decision Making - Lab Data Result diagrams: 07/01/19 12:36 07/01/19 12:36 Laboratory Results - last 24 hr 07/01/19 07/01/19 12:36 12:36 WBC 6.5 RBC 4.52 Hgb 7.9 L Hct 26.4 L MCV 58 L MCH 17 L MCHC 30 RDW 19.6 H Plt Count 456 H Lymph % (Auto) 20.3 [place] % (Auto) 8.8 H Eos % (Auto) 3.5 Baso % (Auto) 1.1 Lymph # 1.3 [place] # 0.6 Eos # 0.2 Baso # 0.1 Seg Neutrophils % 66.3 Seg Neutrophils # 4.3 Sodium 133 L Potassium 3.9 Chloride 94.6 L Carbon Dioxide 21 L Anion Gap 21 BUN 6 L Creatinine 0.7 Estimated GFR > 60 BUN/Creatinine Ratio 9 Glucose 386 H Calcium 9.8 Critical care attestation.: If time is entered above; I have spent that time in minutes in the direct care of this critically ill patient, excluding procedure time. 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 Return any fever. Rx as directed. Monitor glucose. She did feel ill come back to the emergency department and fluids/possible admission could be required. See Ying Mcnamara tomorrow about reinstituting your insulin. You do need to be on insulin. Prescriptions: Sulfamethoxazole/Trimethoprim [Bactrim DS TAB] 1 each PO BID #20 tablet Insulin Regular, Human [HumuLIN R] 1 units IV Q6HR #1 bottle Referrals: YING MCNAMARA MD [Primary Care Provider] - 24 Hours Time of Disposition: 14:38
[2019-07-01 15:08] LABS: Free T4 (Free Thyroxine) 1.22 ng/dL (0.76-1.46)
== END 2019-07-01 15:32 | disposition home or self-care (01) ==
LOC: ED 10:03
DX: K11.20 Sialoadenitis, unspecified (principal); E11.65 Type 2 diabetes mellitus with hyperglycemia; I10 Essential (primary) hypertension; E11.9 Type 2 diabetes mellitus without complications; G43.909 Migraine, unspecified, not intractable, without status migrainosus; F41.9 Anxiety disorder, unspecified; F17.200 Nicotine dependence, unspecified, uncomplicated; Z79.899 Other long term (current) drug therapy; Z88.6 Allergy status to analgesic agent
CPT/HCPCS: 36415; 70360; 80048; 82962; 84439; 84443; 85025; 96372; J1815

== ENCOUNTER 2019-08-14 07:16 | Observation (INO) | payer BC, OTHER ==
[2019-08-14] MEDS ORDERED: SODIUM CHLORIDE 0.9% 1000 ML 1,000 ML IV ONE (09:22)
--- NOTE | 2019-08-14 09:30 | Emergency Department Report ---
HPI - General Chief Complaint: Anxiety Time Seen by Provider: 08/14/19 09:11 - HPI HPI: Room 2 The patient is a 38-year-old female presenting with a chief complaint of "panic attack and High blood sugar." The patient states this morning at 03:00 she n oticed her blood sugars elevated and 500s and this prompted her to have a panic attack. The patient states her panic attack included feeling short of breath and shaky. His windshield was feels whenever she has a panic attack. The patient states she's been compliant with her diabetes medication in the last time she took steroids was approximately 2 weeks ago. The patient also admits to facial swelling for one month for which she has been evaluated multiple times and has a pending appointment with an finished yarn examiner for evaluation and management of parotitis. Location: [See above] Duration: [See above] Quality: [See above] Severity: [See above] Timing: [See above] Context: [See above] Modifying factors: [See above] Associated signs and symptoms: [see above] ED Past Medical Hx - Past Medical History Previous Medical History?: Yes Hx Hypertension: Yes Hx Diabetes: Yes Hx Headaches / Migraines: Yes Hx Psychiatric Treatment: Yes (anxiety) Additional medical history: Uterine fibroids, anemia, blood transfusion,venous reflux disease - Surgical History Past Surgical History?: Yes Additional Surgical History: D & C. LEFT GREAT TOE SURGERY, bilateral lower venous ablations - Family History Family history: no significant - Social History Smoking Status: Former Smoker (none 3 years) Substance Use Type: None - Medications Home Medications: Home Medications Medication Instructions Recorded Confirmed Last Taken Type Insulin Degludec/Liraglutide 15 mg SQ QPM 04/23/18 03/01/19 Unknown History [Xultophy 100 Unit-3.6MG/ml Pen] amLODIPine 20 mg PO DAILY 04/23/18 03/01/19 Unknown History Aspirin BABY CHEW TAB 81 mg PO DAILY 03/01/19 03/01/19 Unknown History Escitalopram 10 mg PO DAILY 03/01/19 03/01/19 Unknown History Aspirin [Aspirin BABY CHEW TAB] 81 mg PO QDAY tab.chew 03/04/19 Unknown Rx Docusate Sodium [Colace CAP] 100 mg PO BID capsule 03/04/19 Unknown Rx Escitalopram [Lexapro] 10 mg PO DAILY tablet 03/04/19 Unknown Rx Famotidine [Pepcid] 20 mg PO BID #60 tablet 03/04/19 Unknown Rx Ferrous Sulfate [Feosol 325 MG tab] 325 mg PO DAILY #30 tablet 03/04/19 Unknown Rx HYDROmorphone [Dilaudid] 0.5 mg IV Q3H PRN syringe 03/04/19 Unknown Rx Insulin Glargine [Lantus VIAL] 20 units SUB-Q QHS units 03/04/19 Unknown Rx Lispro Insulin [HumaLOG] 0 unit SUB-Q ACHS units 03/04/19 Unknown Rx Losartan [Cozaar] 25 mg PO DAILY #30 tablet 03/04/19 Unknown Rx metFORMIN [Glucophage] 1,000 mg PO BID #60 tablet 03/04/19 Unknown Rx oxyCODONE /ACETAMINOPHEN [Percocet 1 tab PO Q6H PRN #10 tablet 03/04/19 Unknown Rx 5/325 mg] Fluconazole [Diflucan TAB] 150 mg PO ONCE #1 tablet 05/14/19 Unknown Rx metroNIDAZOLE [Flagyl] 500 mg PO BID 7 Days #14 tab 05/14/19 Unknown Rx Acetaminophen/Codeine [Tylenol 1 tab PO Q6H PRN #12 tab 06/02/19 Unknown Rx /Codeine # 3 tab] Clindamycin [Clindamycin CAP] 300 mg PO Q8HR #60 capsule 06/02/19 Unknown Rx Ibuprofen [Motrin] 800 mg PO Q8HR PRN #24 tablet 06/02/19 Unknown Rx Ondansetron [Zofran Odt] 4 mg PO Q6HR PRN #20 tab.rapdis 06/02/19 Unknown Rx Sulfamethoxazole/Trimethoprim 1 each PO Q12H #20 tablet 06/02/19 Unknown Rx [Bactrim DS TAB] Insulin Regular, Human [HumuLIN R] 1 units IV Q6HR #1 bottle 07/01/19 Unknown Rx Sulfamethoxazole/Trimethoprim 1 each PO BID #20 tablet 07/01/19 Unknown Rx [Bactrim DS TAB] ED Review of Systems ROS: Stated complaint: PANIC ATTACK/HBS Other details as noted in HPI Constitutional: malaise. denies: fever Eyes: denies: eye pain ENT: denies: throat pain Respiratory: shortness of breath Cardiovascular: denies: chest pain Endocrine: no symptoms reported Gastrointestinal: denies: abdominal pain Genitourinary: denies: dysuria Musculoskeletal: denies: back pain Physical Exam - Physical Exam Vital Signs: Vital Signs 08/14/19 07:48 Temperature 98.3 F Pulse Rate 85 Respiratory 16 Rate Blood Pressure 140/86 [Right] O2 Sat by Pulse 99 Oximetry Physical Exam: GENERAL: The patient is well-developed well-nourished female lying on stretcher not appearing to be in acute distress. [] HEENT:Extraocular motions are intact. Patient has moist mucous membranes. NECK: Supple. Trachea midline CHEST/LUNGS: Clear to auscultation. There is no respiratory distress noted. HEART/CARDIOVASCULAR: Regular. There is no tachycardia. There is no gallop rub or murmur. ABDOMEN: Abdomen is soft, nontender. Patient has normal bowel sounds. There is no abdominal distention. SKIN: There is no rash. There is no edema. There is no diaphoresis. NEURO: The patient is awake, alert, and oriented. The patient is cooperative. The patient has normal speech MUSCULOSKELETAL: There is no evidence of acute injury. ED Course Vital Signs 08/14/19 07:48 Temperature 98.3 F Pulse Rate 85 Respiratory 16 Rate Blood Pressure 140/86 [Right] O2 Sat by Pulse 99 Oximetry ED Medical Decision Making - Lab Data Result diagrams: 08/14/19 09:28 08/14/19 09:28 Laboratory Tests 08/14/19 08/14/19 08/14/19 07:32 09:28 09:28 WBC 5.3 RBC 4.58 Hgb 8.0 L Hct 26.1 L MCV 57 L MCH 17 L MCHC 31 RDW 21.8 H Plt Count 491 H Lymph % (Auto) 23.9 [place] % (Auto) 11.9 H Eos % (Auto) 4.2 Baso % (Auto) 1.1 Lymph # 1.3 [place] # 0.6 Eos # 0.2 Baso # 0.1 Seg Neutrophils % 58.9 Seg Neutrophils # 3.1 D-Dimer 842.84 H VBG pH Sodium Potassium Chloride Carbon Dioxide Anion Gap BUN Creatinine Estimated GFR BUN/Creatinine Ratio Glucose POC Glucose 310 H Calcium Total Creatine Kinase CK-MB (CK-2) CK-MB (CK-2) Rel Index Troponin T NT-Pro-B Natriuret Pep HCG, Qual Urine Color Urine Turbidity Urine pH Ur Specific [place] Urine Protein Urine Glucose (UA) Urine Ketones Urine Blood Urine Nitrite Urine Bilirubin Urine Urobilinogen Ur Leukocyte Esterase Urine WBC (Auto) Urine RBC (Auto) U Epithel Cells (Auto) Urine Bacteria (Auto) Urine Mucus 08/14/19 08/14/19 08/14/19 09:28 09:28 09:28 WBC RBC Hgb Hct MCV MCH MCHC RDW Plt Count Lymph % (Auto) [place] % (Auto) Eos % (Auto) Baso % (Auto) Lymph # [place] # Eos # Baso # Seg Neutrophils % Seg Neutrophils # D-Dimer VBG pH 7.400 Sodium 131 L Potassium 4.2 Chloride 93.9 L Carbon Dioxide 20 L Anion Gap 21 BUN 7 Creatinine 0.6 L Estimated GFR > 60 BUN/Creatinine Ratio 12 Glucose 262 H POC Glucose Calcium 10.2 Total Creatine Kinase 66 CK-MB (CK-2) 1.7 CK-MB (CK-2) Rel Index 2.5 Troponin T < 0.010 NT-Pro-B Natriuret Pep 123.6 HCG, Qual Negative Urine Color Urine Turbidity Urine pH Ur Specific [place] Urine Protein Urine Glucose (UA) Urine Ketones Urine Blood Urine Nitrite Urine Bilirubin Urine Urobilinogen Ur Leukocyte Esterase Urine WBC (Auto) Urine RBC (Auto) U Epithel Cells (Auto) Urine Bacteria (Auto) Urine Mucus 08/14/19 10:53 WBC RBC Hgb Hct MCV MCH MCHC RDW Plt Count Lymph % (Auto) [place] % (Auto) Eos % (Auto) Baso % (Auto) Lymph # [place] # Eos # Baso # Seg Neutrophils % Seg Neutrophils # D-Dimer VBG pH Sodium Potassium Chloride Carbon Dioxide Anion Gap BUN Creatinine Estimated GFR BUN/Creatinine Ratio Glucose POC Glucose Calcium Total Creatine Kinase CK-MB (CK-2) CK-MB (CK-2) Rel Index Troponin T NT-Pro-B Natriuret Pep HCG, Qual Urine Color Yellow Urine Turbidity Cloudy Urine pH 6.0 Ur Specific [place] 1.011 Urine Protein 100 mg/dl Urine Glucose (UA) 150 Urine Ketones Neg Urine Blood Mod Urine Nitrite Neg Urine Bilirubin Neg Urine Urobilinogen < 2.0 Ur Leukocyte Esterase Sm Urine WBC (Auto) 4.0 Urine RBC (Auto) 9.0 U Epithel Cells (Auto) 4.0 Urine Bacteria (Auto) 1+ Urine Mucus Few - EKG Data -: EKG Interpreted by Me EKG shows normal: sinus rhythm Rate: normal - EKG Data When compared to previous EKG there are: previous EKG unavailable Interpretation: normal EKG - Radiology Data Radiology results: report reviewed (chest x-ray, VQ scan), image reviewed (chest x-ray, VQ scan) interpreted by me: Chest x-ray-no definite focal infiltrates, no pneumothorax [address] [address] XRay Report Signed Patient: CHRIST ROBERTS MR#: [id number] : 1980 Acct:[id number] Age/Sex: 38 / F ADM Date: 08/14/19 Loc: ED Attending Dr: Ordering Physician: ANA HOFF MD Date of Service: 08/14/19 Procedure(s): XR chest 1V ap Accession Number(s): [id number] cc: ANA HOFF MD Fluoro Time In Minutes: CHEST 1 VIEW INDICATION: shortness of breath. COMPARISON: 03/01/2019. FINDINGS: Support devices: None. Heart: Within normal limits. Lungs/Pleura: No acute air space or interstitial disease. Additional findings: None. IMPRESSION: 1. No acute findings. Signer Name: Jase Zuñiga MD Signed: 08/14/2019 12:03 PM Workstation Name: [id number] Transcribed By: ES Dictated By: Jase Zuñiga MD Electronically Authenticated By: Jase Zuñiga MD Signed Date/Time: 08/14/19 120 DD/ 120 TD/TT: [address] [address] Nuclear Medicine Report Signed Patient: CHRIST ROBERTS MR#: [id number] : 1980 Acct:[id number] Age/Sex: 38 / F ADM Date: 08/14/19 Loc: ED Attending Dr: Ordering Physician: ANA HOFF MD Date of Service: 08/14/19 Procedure(s): NM lung scan perf/vent Accession Number(s): [id number] cc: ANA HOFF MD V/Q Scan HISTORY: shortness of breath. TECHNIQUE: Patient was given 15.5 mCi of xenon-133 and 5.59 mCi of technetium MAA. COMPARISON: Chest x-ray from today FINDINGS: There is a small to moderate sized photopenic defect in the left lung base where there is also patchy left basilar airspace disease. Otherwise no mismatch identified. IMPRESSION: Triple match study in the left lung base is technically intermediate probability for PTE. Please note that this category encompasses a wide probability and it is vital that clinical correlation with exam and history supports this diagnosis. Signer Name: Chai Frederick MD Signed: 08/14/2019 12:26 PM Workstation Name: [id number] Transcribed By: ULISSES Dictated By: Chai Frederick MD Electronically Authenticated By: Chai Frederick MD Signed Date/Time: 08/14/191225 DD/ T D/TT: - Differential Diagnosis anxiety attack, ACS, PE, hyperglycemia Critical care attestation.: If time is entered above; I have spent that time in minutes in the direct care of this critically ill patient, excluding procedure time. ED Disposition Clinical Impression: Chest pain, Shortness of breath, Hyperglycemia Disposition: DC-09 OP ADMIT IP TO THIS HOSP Is pt being admited?: Yes Does the pt Need Aspirin: No Condition: Fair Instructions: Chest Pain (ED) Referrals: PRIMARY CARE, [Referring] - 3-5 Days Time of Disposition: 12:50 (hospitalist paged (Dr Rosales))
[2019-08-14 10:21] LABS: Basophils # (Auto) 0.1 K/mm3 (0.0-0.1); Basophils % (Auto) 1.1 % (0.0-1.8); Eosinophils # (Auto) 0.2 K/mm3 (0.0-0.4); Eosinophils % (Auto) 4.2 % (0.0-4.3); Hematocrit 26.1 % (30.3-42.9); Lymphocytes # (Auto) 1.3 K/mm3 (1.2-5.4); Lymphocytes % (Auto) 23.9 % (13.4-35.0); Mean Corpuscular HGB Conc 31 % (30-34); Monocytes # (Auto) 0.6 K/mm3 (0.0-0.8); Monocytes % (Auto) 11.9 % (0.0-7.3); Platelet Count 491 K/mm3 (140-440); Red Blood Count 4.58 M/mm3 (3.65-5.03)
[2019-08-14 10:40] LABS: Mean Corpuscular Volume 57 fl (79-97); Red Cell Distribution Width 21.8 % (13.2-15.2)
[2019-08-14 10:41] LABS: Creatine Kinase MB 1.7 ng/mL (0.0-4.0)
[2019-08-14 10:42] LABS: BUN/Creatinine Ratio 12; Blood Urea Nitrogen 7 mg/dL (7-17); Calcium 10.2 mg/dL (8.4-10.2); Hemolysis Index 3
[2019-08-14 11:14] LABS: Bacteria,Urine 1+ /HPF (Negative); Bilirubin,Urine NEG (Negative); Blood,Urine MOD (Negative); Color,Urine Yellow (Yellow); Mucus,Urine FEW /HPF; Urobilinogen,Urine < 2.0 mg/dL (<2.0)
--- NOTE | 2019-08-14 12:08 | XRay Report ---
CHEST 1 VIEW INDICATION: shortness of breath. COMPARISON: 03/01/2019. FINDINGS: Support devices: None. Heart: Within normal limits. Lungs/Pleura: No acute air space or interstitial disease. Additional findings: None. IMPRESSION: 1. No acute findings. Signer Name: Jase Zuñiga MD Signed: 08/14/2019 12:03 PM Workstation Name: [id number]
--- NOTE | 2019-08-14 12:30 | Nuclear Medicine Report ---
V/Q Scan HISTORY: shortness of breath. TECHNIQUE: Patient was given 15.5 mCi of xenon-133 and 5.59 mCi of technetium MAA. COMPARISON: Chest x-ray from today FINDINGS: There is a small to moderate sized photopenic defect in the left lung base where there is also patchy left basilar airspace disease. Otherwise no mismatch identified. IMPRESSION: Triple match study in the left lung base is technically intermediate probability for PTE . Please note that this category encompasses a wide probability and it is vital that clinical correla tion with exam and history supports this diagnosis. Signer Name: Chai Frederick MD Signed: 08/14/2019 12:26 PM Workstation Name: [id number]
[2019-08-14] MEDS ORDERED: ENOXAPARIN 100 MG/1 ML INJ SUB-Q ONE (12:54)
--- NOTE | 2019-08-14 21:07 | History and Physical Report ---
History of Present Illness Date of examination: 08/14/19 Date of admission: 08/14/19 12:52 Chief complaint: Panic attack at 3 AM High blood glucose levels for the last couple of days around 500. History of present illness: 38-year-old -[place] female with history of insulin-dependent diabetes, hypertension, anemia, depression and chronic pain comes in for high blood glucose levels and an apparent panic attack around 3 AM. Patient states her blood glucose levels at around 500. Patient also states that she felt short of breath and tremulous during the panic attack. Patient states that she has been compliant with her diabetic medication. Patient has been taking steroids for parotid swelling. Patient does not know the diagnosis for her parotid swelling. Patient has ENT appointment in August for bilateral parotid gland swelling. Patient does not have any pain while eating or swallowing. Patient also has some chest pain since yesterday. Patient also had chest pain which is retrosternal, no diaphoresis, no palpitations and no shortness of breath. No radiation. Past Medical History Previous Medical History?: Yes Hypertension: Yes Diabetes: Yes Headaches / Migraines: Yes Psychiatric Treatment: Yes (anxiety) Additional medical history: Uterine fibroids, anemia, blood transfusion,venous reflux disease Surgical History Past Surgical History?: Yes Additional Surgical History: D & C. LEFT GREAT TOE SURGERY, bilateral lower venous ablations Family History Family history: no significant Social History Smoking Status: Former Smoker (none 3 years) Substance Use Type: None - Medications Home Medications: Home Medications Medication Instructions Recorded Confirmed Last Taken Type Insulin Degludec/Liraglutide 15 mg SQ QPM 04/23/18 03/01/19 Unknown History [Xultophy 100 Unit-3.6MG/ml Pen] amLODIPine 20 mg PO DAILY 04/23/18 03/01/19 Unknown History Aspirin BABY CHEW TAB 81 mg PO DAILY 03/01/19 03/01/19 Unknown History Escitalopram 10 mg PO DAILY 03/01/19 03/01/19 Unknown History Aspirin [Aspirin BABY CHEW TAB] 81 mg PO QDAY tab.chew 03/04/19 Unknown Rx Docusate Sodium [Colace CAP] 100 mg PO BID capsule 03/04/19 Unknown Rx Escitalopram [Lexapro] 10 mg PO DAILY tablet 03/04/19 Unknown Rx Famotidine [Pepcid] 20 mg PO BID #60 tablet 03/04/19 Unknown Rx Ferrous Sulfate [Feosol 325 MG tab] 325 mg PO DAILY #30 tablet 03/04/19 Unknown Rx HYDROmorphone [Dilaudid] 0.5 mg IV Q3H PRN syringe 03/04/19 Unknown Rx Insulin Glargine [Lantus VIAL] 20 units SUB-Q QHS units 03/04/19 Unknown Rx Lispro Insulin [HumaLOG] 0 unit SUB-Q ACHS units 03/04/19 Unknown Rx Losartan [Cozaar] 25 mg PO DAILY #30 tablet 03/04/19 Unknown Rx metFORMIN [Glucophage] 1,000 mg PO BID #60 tablet 03/04/19 Unknown Rx oxyCODONE /ACETAMINOPHEN [Percocet 1 tab PO Q6H PRN #10 tablet 03/04/19 Unknown Rx 5/325 mg] Fluconazole [Diflucan TAB] 150 mg PO ONCE #1 tablet 05/14/19 Unknown Rx metroNIDAZOLE [Flagyl] 500 mg PO BID 7 Days #14 tab 05/14/19 Unknown Rx Acetaminophen/Codeine [Tylenol 1 tab PO Q6H PRN #12 tab 06/02/19 Unknown Rx /Codeine # 3 tab] Clindamycin [Clindamycin CAP] 300 mg PO Q8HR #60 capsule 06/02/19 Unknown Rx Ibuprofen [Motrin] 800 mg PO Q8HR PRN #24 tablet 06/02/19 Unknown Rx Ondansetron [Zofran Odt] 4 mg PO Q6HR PRN #20 tab.rapdis 06/02/19 Unknown Rx Sulfamethoxazole/Trimethoprim 1 each PO Q12H #20 tablet 06/02/19 Unknown Rx [Bactrim DS TAB] Insulin Regular, Human [HumuLIN R] 1 units IV Q6HR #1 bottle 07/01/19 Unknown Rx Sulfamethoxazole/Trimethoprim 1 each PO BID #20 tablet 07/01/19 Unknown Rx [Bactrim DS TAB] Review of Systems ROS: Stated complaint: PANIC ATTACK/HBS Other details as noted in HPI Constitutional: malaise. denies: fever Eyes: denies: eye pain ENT: denies: throat pain Respiratory: shortness of breath Cardiovascular: denies: chest pain Endocrine: no symptoms reported Gastrointestinal: denies: abdominal pain Genitourinary: denies: dysuria Musculoskeletal: denies: back pain 14 point review of systems done--otherwise negative Medications and Allergies Allergies Allergy/AdvReac Type Severity Reaction Status Date / Time aspirin Allergy Swelling Verified 05/14/19 16:43 lisinopril Allergy Swelling Verified 08/14/19 07:29 Home Medications Medication Instructions Recorded Confirmed Last Taken Type Insulin Degludec/Liraglutide 15 mg SQ QPM 04/23/18 03/01/19 Unknown History [Xultophy 100 Unit-3.6MG/ml Pen] amLODIPine 20 mg PO DAILY 04/23/18 03/01/19 Unknown History Aspirin BABY CHEW TAB 81 mg PO DAILY 03/01/19 03/01/19 Unknown History Escitalopram 10 mg PO DAILY 03/01/19 03/01/19 Unknown History Aspirin [Aspirin BABY CHEW TAB] 81 mg PO QDAY tab.chew 03/04/19 Unknown Rx Docusate Sodium [Colace CAP] 100 mg PO BID capsule 03/04/19 Unknown Rx Escitalopram [Lexapro] 10 mg PO DAILY tablet 03/04/19 Unknown Rx Famotidine [Pepcid] 20 mg PO BID #60 tablet 03/04/19 Unknown Rx Ferrous Sulfate [Feosol 325 MG tab] 325 mg PO DAILY #30 tablet 03/04/19 Unknown Rx HYDROmorphone [Dilaudid] 0.5 mg IV Q3H PRN syringe 03/04/19 Unknown Rx Insulin Glargine [Lantus VIAL] 20 units SUB-Q QHS units 03/04/19 Unknown Rx Lispro Insulin [HumaLOG] 0 unit SUB-Q ACHS units 03/04/19 Unknown Rx Losartan [Cozaar] 25 mg PO DAILY #30 tablet 03/04/19 Unknown Rx metFORMIN [Glucophage] 1,000 mg PO BID #60 tablet 03/04/19 Unknown Rx oxyCODONE /ACETAMINOPHEN [Percocet 1 tab PO Q6H PRN #10 tablet 03/04/19 Unknown Rx 5/325 mg] Fluconazole [Diflucan TAB] 150 mg PO ONCE #1 tablet 05/14/19 Unknown Rx metroNIDAZOLE [Flagyl] 500 mg PO BID 7 Days #14 tab 05/14/19 Unknown Rx Acetaminophen/Codeine [Tylenol 1 tab PO Q6H PRN #12 tab 06/02/19 Unknown Rx /Codeine # 3 tab] Clindamycin [Clindamycin CAP] 300 mg PO Q8HR #60 capsule 06/02/19 Unknown Rx Ibuprofen [Motrin] 800 mg PO Q8HR PRN #24 tablet 06/02/19 Unknown Rx Ondansetron [Zofran Odt] 4 mg PO Q6HR PRN #20 tab.rapdis 06/02/19 Unknown Rx Sulfamethoxazole/Trimethoprim 1 each PO Q12H #20 tablet 06/02/19 Unknown Rx [Bactrim DS TAB] Insulin Regular, Human [HumuLIN R] 1 units IV Q6HR #1 bottle 07/01/19 Unknown Rx Sulfamethoxazole/Trimethoprim 1 each PO BID #20 tablet 07/01/19 Unknown Rx [Bactrim DS TAB] Exam - Constitutional Vitals: Temp Pulse Resp BP Pulse Ox 98.3 F 98 H 18 167/99 100 08/14/19 20:24 08/14/19 20:24 08/14/19 20:24 08/14/19 20:24 08/14/19 20:24 General appearance: Present: no acute distress, well-nourished - EENT Eyes: Present: PERRL ENT: hearing intact, clear oral mucosa, other (Bilateral parotid gland swelling) - Neck Neck: Present: supple, normal ROM - Respiratory Respiratory effort: normal Respiratory: bilateral: CTA - Cardiovascular Heart rate: 77 Rhythm: regular Heart Sounds: Present: S1 & S2. Absent: rub, click - Extremities Extremities: no ischemia, pulses intact, pulses symmetrical, No edema Peripheral Pulses: within normal limits - Abdominal General gastrointestinal: Present: soft, non-tender, non-distended, normal bowel sounds Female genitourinary: Present: normal - Rectal Rectal Exam: deferred - Integumentary Integumentary: Present: clear, warm, dry - Musculoskeletal Musculoskeletal: gait normal, strength equal bilaterally - Psychiatric Psychiatric: appropriate mood/affect, intact judgment & insight - Neurologic Neurologic: CNII-XII intact, moves all extremities - Allied Health Allied health notes reviewed: nursing, case management Results - Labs CBC & Chem 7: 08/14/19 09:28 08/14/19 09:28 Labs: Laboratory Last Values WBC 5.3 K/mm3 (4.5-11.0) 08/14/19 09:28 RBC 4.58 M/mm3 (3.65-5.03) 08/14/19 09:28 Hgb 8.0 gm/dl (10.1-14.3) L 08/14/19 09:28 Hct 26.1 % (30.3-42.9) L 08/14/19 09:28 MCV 57 fl (79-97) L 08/14/19 09:28 MCH 17 pg (28-32) L 08/14/19 09:28 MCHC 31 % (30-34) 08/14/19 09: RDW 21.8 % (13.2-15.2) H 08/14/19 09:28 Plt Count 491 K/mm3 (140-440) H 08/14/19 09:28 Lymph % (Auto) 23.9 % (13.4-35.0) 08/14/19 09:28 [place] % (Auto) 11.9 % (0.0-7.3) H 08/14/19 09:28 Eos % (Auto) 4.2 % (0.0-4.3) 08/14/19 09: Baso % (Auto) 1.1 % (0.0-1.8) 08/14/19 09:28 Lymph # 1.3 K/mm3 (1.2-5.4) 08/14/19 09:28 Taney # 0.6 K/mm3 (0.0-0.8) 08/14/19 09:28 Eos # 0.2 K/mm3 (0.0-0.4) 08/14/19 09:28 Baso # 0.1 K/mm3 (0.0-0.1) 08/14/19 09: Seg Neutrophils % 58.9 % (40.0-70.0) 08/14/19 09:28 Seg Neutrophils # 3.1 K/mm3 (1.8-7.7) 08/14/19 09:28 D-Dimer 842.84 ng/mlDDU (0-234) H 08/14/19 09:28 VBG pH 7.400 (7.320-7.420) 08/14/19 09:28 Sodium 131 mmol/L (137-145) L 08/14/19 09:28 Potassium 4.2 mmol/L (3.6-5.0) 08/14/19 09:28 Chloride 93.9 mmol/L (98-107) L 08/14/19 09:28 Carbon Dioxide 20 mmol/L (22-30) L 08/14/19 09:28 Anion Gap 21 mmol/L 08/14/19 09:28 BUN 7 mg/dL (7-17) 08/14/19 09:28 Creatinine 0.6 mg/dL (0.7-1.2) L 08/14/19 09:28 Estimated GFR > 60 ml/min 08/14/19 09:28 BUN/Creatinine Ratio 12 % 08/14/19 09:28 Glucose 262 mg/dL (65-100) H 08/14/19 09:28 POC Glucose 291 (70-105) H 08/14/19 20:55 Calcium 10.2 mg/dL (8.4-10.2) 08/14/19 09:28 Total Creatine Kinase 66 units/L (30-135) 08/14/19 09:28 CK-MB (CK-2) 1.7 ng/mL (0.0-4.0) 08/14/19 09:28 CK-MB (CK-2) Rel Index 2.5 (0-4) 08/14/19 09:28 Troponin T < 0.010 ng/mL (0.00-0.029) 08/14/19 09:28 NT-Pro-B Natriuret Pep 123.6 pg/mL (0-450) 08/14/19 09:28 HCG, Qual Negative (Negative) 08/14/19 09:28 Urine Color Yellow (Yellow) 08/14/19 10:53 Urine Turbidity Cloudy (Clear) 08/14/19 10:53 Urine pH 6.0 (5.0-7.0) 08/14/19 10:53 Ur Specific [place] 1.011 (1.003-1.030) 08/14/19 10:53 Urine Protein 100 mg/dl mg/dL (Negative) 08/14/19 10:53 Urine Glucose (UA) 150 mg/dL (Negative) 08/14/19 10:53 Urine Ketones Neg mg/dL (Negative) 08/14/19 10:53 Urine Blood Mod (Negative) 08/14/19 10:53 Urine Nitrite Neg (Negative) 08/14/19 10:53 Urine Bilirubin Neg (Negative) 08/14/19 10:53 Urine Urobilinogen < 2.0 mg/dL (<2.0) 08/14/19 10:53 Ur Leukocyte Esterase Sm (Negative) 08/14/19 10:53 Urine WBC (Auto) 4.0 /HPF (0.0-6.0) 08/14/19 10:53 Urine RBC (Auto) 9.0 /HPF (0.0-6.0) 08/14/19 10:53 U Epithel Cells (Auto) 4.0 /HPF (0-13.0) 08/14/19 10:53 Urine Bacteria (Auto) 1+ /HPF (Negative) 08/14/19 10:53 Urine Mucus Few /HPF 08/14/19 10:53 Short CBC 08/14/19 Range/Units 09:28 WBC 5.3 (4.5-11.0) K/mm3 Hgb 8.0 L (10.1-14.3) gm/dl Hct 26.1 L (30.3-42.9) % Plt Count 491 H (140-440) K/mm3 BMP 08/14/19 09:28 Sodium 131 L Potassium 4.2 Chloride 93.9 L Carbon Dioxide 20 L BUN 7 Creatinine 0.6 L Glucose 262 H Calcium 10.2 Cardiac Enzymes 08/14/19 Range/Units 09:28 Total Creatine Kinase 66 (30-135) units/L CK-MB (CK-2) 1.7 (0.0-4.0) ng/mL Troponin T < 0.010 (0.00-0.029) ng/mL Urine 08/14/19 Range/Units 10:53 Urine Color Yellow (Yellow) Urine pH 6.0 (5.0-7.0) Ur Specific [place] 1.011 (1.003-1.030) Urine Protein 100 mg/dl (Negative) mg/dL Urine Glucose (UA) 150 (Negative) mg/dL - Imaging and Cardiology EKG: report reviewed (Normal sinus rhythm, heart rate of 77/min, no acute ST-T wave changes) Chest x-ray: report reviewed (No acute findings) Imaging and Cardiology: Perfusion scan Impression Triple match study in the left lung base is technically intermediate probability for pulmonary thromboembolism. Please note that this category encompasses a wide probability and it is vital that clinical correlation with exam and history supports this diagnosis Assessment and Plan Advance Directives: Yes (Full code) VTE prophylaxis?: Chemical Plan of care discussed with patient/family: Yes - Patient Problems (1) Pulmonary embolism Current Visit: Yes Status: Acute Qualifiers: Acute cor pulmonale presence: without acute cor pulmonale Plan to address problem: Intermediate probability Clinically not in favor of PE Patient initiated on Lovenox subcu every 12 100 mg. Primary team to change to Eliquis if convinced about PE. PE unlikely (2) Chest pain Current Visit: Yes Status: Acute Plan to address problem: Patient to get chest pain work-up in the form of Lexiscan and serial troponins (3) Uncontrolled diabetes mellitus Current Visit: Yes Status: Chronic Qualifiers: Diabetes mellitus type: type 2 Plan to address problem: Increased insulin dosages and monitor closely Check hemoglobin A1c Accu-Cheks every 4 (4) Depression Current Visit: No Status: Chronic Qualifiers: Depression Type: unspecified Qualified Code(s): F32.9 - Major depressive disorder, single episode, unspecified Plan to address problem: Continue Celexa (5) Hypertension Current Visit: No Status: Chronic Qualifiers: Hypertension type: essential hypertension Qualified Code(s): I10 - Essential (primary) hypertension Plan to address problem: Continue antihypertensives in the form of losartan, amlodipine. Adjust blood pressure medications as necessary (6) GERD (gastroesophageal reflux disease) Current Visit: Yes Status: Chronic Qualifiers: Esophagitis presence: without esophagitis Qualified Code(s): K21.9 - Gastro-esophageal reflux disease without esophagitis Plan to address problem: Patient on famotidine (7) Hyponatremia Current Visit: Yes Status: Acute Plan to address problem: Should correct with correction of blood glucose levels Consistent with pseudohyponatremia (8) Symptomatic anemia Current Visit: No Status: Chronic Plan to address problem: Patient has symptoms of anemia including weakness and lightheadedness Probably nutritional Will get iron levels B12 level and folic acid level (9) DVT prophylaxis Current Visit: No Status: Acute Plan to address problem: Patient on Lovenox and GI prophylaxis
[2019-08-14] MEDS ORDERED: ACETAMINOPHEN W/CODEINE 300-30 MG TAB PO PRN (21:28)
[2019-08-14] MEDS ORDERED: IBUPROFEN 800 MG TAB PO PRN (21:28)
[2019-08-14] MEDS ORDERED: FLUCONAZOLE 150 MG PO SCH (21:30)
[2019-08-14] MEDS ORDERED: ACETAMINOPHEN 325 MG TAB PO PRN (21:32)
[2019-08-14] MEDS ORDERED: ONDANSETRON 4 MG/2 ML INJ IV PRN (21:32)
[2019-08-14] MEDS ORDERED: HYDROmorphone 1 MG/1 ML INJ IV PRN (21:33)
[2019-08-14] MEDS ORDERED: METOCLOPRAMIDE 10 MG/2 ML INJ IV PRN (21:33)
[2019-08-14] MEDS ORDERED: diphenhydrAMINE 50 MG/ML VIAL IV PRN (21:36)
[2019-08-14] MEDS: SODIUM CHLORIDE 0.9% 1000 ML 1,000 ML IV SCH (21:48)
[2019-08-14] MEDS: FAMOTIDINE 20 MG TAB PO SCH (21:49)
[2019-08-14] MEDS: DOCUSATE SODIUM 100 MG CAP PO SCH (21:49)
[2019-08-14] MEDS: INSULIN LISPRO 100 UNIT/ML SUB-Q SCH (21:57)
[2019-08-14] MEDS ORDERED: amLODIPine 10 MG TAB PO SCH (22:00)
[2019-08-14] MEDS: INSULIN GLARGINE 100 UNITS/ML SUB-Q SCH (23:31)
[2019-08-15] MEDS: ENOXAPARIN 100 MG/1 ML INJ SUB-Q SCH ×2 (02:20→12:30)
[2019-08-15] MEDS: INSULIN LISPRO 100 UNIT/ML SUB-Q SCH ×5 (04:00→17:59)
[2019-08-15] MEDS: INSULIN GLARGINE 100 UNITS/ML SUB-Q SCH (09:28)
[2019-08-15] MEDS: FAMOTIDINE 20 MG TAB PO SCH (09:28)
[2019-08-15] MEDS: DOCUSATE SODIUM 100 MG CAP PO SCH (09:28)
[2019-08-15 09:34] VITALS: BP 146/91
[2019-08-15] MEDS ORDERED: NON-FORMULARY EACH (Escitalopram 10 MG) PO SCH (10:00)
[2019-08-15] MEDS ORDERED: ESCITALOPRAM 10 MG TAB PO SCH (10:00)
[2019-08-15] MEDS ORDERED: LOSARTAN 25 MG TAB PO SCH (10:00)
[2019-08-15] MEDS ORDERED: ASPIRIN 81 MG TAB CHEW PO SCH (10:00)
[2019-08-15 10:16] LABS: Basophils # (Auto) 0.1 K/mm3 (0.0-0.1); Eosinophils # (Auto) 0.2 K/mm3 (0.0-0.4); Eosinophils % (Auto) 3.6 % (0.0-4.3); Hematocrit 28.7 % (30.3-42.9); Hemoglobin 8.7 gm/dl (10.1-14.3); Lymphocytes # (Auto) 1.2 K/mm3 (1.2-5.4); Mean Corpuscular HGB Conc 30 % (30-34); Monocytes # (Auto) 0.5 K/mm3 (0.0-0.8); Monocytes % (Auto) 8.6 % (0.0-7.3); Platelet Count 589 K/mm3 (140-440); Red Blood Count 4.95 M/mm3 (3.65-5.03)
[2019-08-15 10:21] LABS: Mean Corpuscular Volume 58 fl (79-97); Red Cell Distribution Width 22.5 % (13.2-15.2)
[2019-08-15] MEDS: SODIUM CHLORIDE 0.9% 1000 ML 1,000 ML IV SCH (10:28)
[2019-08-15 10:40] LABS: Alanine Aminotransferase 49 units/L (7-56); Albumin 3.9 g/dL (3.9-5); BUN/Creatinine Ratio 12; Blood Urea Nitrogen 7 mg/dL (7-17); Calcium 10.1 mg/dL (8.4-10.2); Hemolysis Index 0
--- NOTE | 2019-08-15 12:09 | Event Note ---
Date: 08/15/19 38-year-old -[place] female with history of insulin-dependent diabetes, hypertension, anemia, depression and chronic pain comes in for high blood glucose levels and an apparent panic attack around 3 AM. Patient states her blood glucose levels at around 500. Patient also states that she felt short of breath and tremulous during the panic attack. Patient states that she has been compliant with her diabetic medication. Patient has been taking steroids for parotid swelling. Patient does not know the diagnosis for her parotid swelling. Patient has ENT appointment in August for bilateral parotid gland swelling. Patient does not have any pain while eating or swallowing. Patient also has some chest pain since yesterday. Patient also had chest pain which is retrosternal, no diaphoresis, no palpitations and no shortness of breath. No radiation. A v/Q scan was done and was intermediate probability. Primary Attending has ordered CTA to r/o PE. If negative will discharge patient on hypoglycemic agents and outpatient follow up.
--- NOTE | 2019-08-15 16:57 | Discharge Summary ---
Providers - Providers Date of Admission: 08/14/19 12:52 Date of discharge: 08/15/19 Attending physician: CLAUDETTE LUNA 08/14/19 21:33 Consult to Physician [CONS] Routine Comment: Consulting Provider: SARA العراقي Physician Instructions: Reason For Exam: Pulmonary embolism 08/14/19 21:34 Consult to Dietitian/Nutrition [CONS] Routine Physician Instructions: Reason For Exam: Reason for Consult: Diet education Primary care physician: RENETTA MCNAMARA Hospitalization Condition: Fair Hospital course: Discharge diagnosis: (1) Pulmonary embolism, ruled out Current Visit: Yes Status: Acute Qualifiers: Acute cor pulmonale presence: without acute cor pulmonale Plan to address problem: Intermediate probability Clinically not in favor of PE Patient initiated on Lovenox subcu every 12 100 mg. Primary team to change to Eliquis if convinced about PE. PE unlikely (3) Uncontrolled diabetes mellitus Current Visit: Yes Status: Chronic Qualifiers: Diabetes mellitus type: type 2 Plan to address problem: Increased insulin dosages and monitor closely Check hemoglobin A1c Accu-Cheks every 4 (4) Depression Current Visit: No Status: Chronic Qualifiers: Depression Type: unspecified Qualified Code(s): F32.9 - Major depressive disorder, single episode, unspecified Plan to address problem: Continue Celexa (5) Hypertension Current Visit: No Status: Chronic Qualifiers: Hypertension type: essential hypertension Qualified Code(s): I10 - Essential (primary) hypertension Plan to address problem: Continue antihypertensives in the form of losartan, amlodipine. Adjust blood pressure medications as necessary (6) GERD (gastroesophageal reflux disease) Current Visit: Yes Status: Chronic Qualifiers: Esophagitis presence: without esophagitis Qualified Code(s): K21.9 - Gastro-esophageal reflux disease without esophagitis Plan to address problem: Patient on famotidine (7) Hyponatremia Current Visit: Yes Status: Acute Plan to address problem: Should correct with correction of blood glucose levels Consistent with pseudohyponatremia (8) Symptomatic anemia Current Visit: No Status: Chronic Plan to address problem: Patient has symptoms of anemia including weakness and lightheadedness Probably nutritional Will get iron levels B12 level and folic acid level (9) DVT prophylaxis Current Visit: No Status: Acute Plan to address problem: Patient on Lovenox and GI prophylaxis Disposition: TO HOME OR SELFCARE Time spent for discharge: 34 minutes Core Measure Documentation - Palliative Care Palliative Care/ Comfort Measures: Not Applicable - Core Measures Any of the following diagnoses?: none Exam - Constitutional Vitals: Temp Pulse Resp BP Pulse Ox 98.3 F 82 18 146/91 87 08/15/19 08:42 08/15/19 08:42 08/15/19 08:42 08/15/19 08:42 08/15/19 08:42 Plan Activity: advance as tolerated Weight Bearing Status: Weight Bear as Tolerated Diet: low fat, diabetic Follow up with: PRIMARY CARE, [Referring] - 3-5 Days Forms: Accompanied Note
--- NOTE | 2019-08-15 18:55 | Cat Scan Report ---
CTA CHEST WITH IV CONTRAST INDICATION: Acute onset chest pain with dyspnea. TECHNIQUE: Axial CT images were obtained through the chest after injection of 100 mL IV contrast. 3 plane MIP re constructions were produced. All CT scans at this location are performed using CT dose reduction for ALARA by means of automated exposure control. COMPARISON: 03/01/2019 FINDINGS: PULMONARY ARTERIES: No pulmonary emboli. AORTA AND ARTERIES: No acute abnormality. MEDIASTINUM: Extensive adenopathy primarily in most notably present involving both juju as well as th e subcarinal and right peritracheal regions. LUNGS: Again there is extensive perihilar consolidative process scattered throughout both lungs, similar to the prior exam on 03/01/2019. Much of the opacity a ppears inflammatory in type and there is extensive tree-in-bud type opacity within both lungs. Previo usly demonstrated bilateral pleural effusions have resolved. ADDITIONAL FINDINGS: None. UPPER ABDOMEN: No acute findings. BONES: No significant osseous abnormality. IMPRESSION: 1. No CT evidence for pulmonary embolism. 2. Extensive mediastinal adenopathy throughout the chest. This is grossly similar in appearance to 03/01/2019 and while this may be reactive to extensive bilateral bronchopneumonia is ultimately nonspecif ic. Close attention on follow-up is recommended to ensure complete resolution following treatment. Ot her less likely possibilities include underlying neoplasm/lymphoma or sarcoidosis. 3. Extensive bilateral bronchopneumonia. Signer Name: Naldo Camarillo MD Signed: 08/15/2019 6:50 PM Workstation Name: [id number]
== END 2019-08-15 23:19 | disposition home or self-care (01) ==
LOC: ED 07:16 → 4A 12:52
PROVIDERS: ADMIT Internal Medicine; ATTEND Internal Medicine
DX: E11.65 Type 2 diabetes mellitus with hyperglycemia (principal); I26.99 Other pulmonary embolism without acute cor pulmonale; I10 Essential (primary) hypertension; D64.9 Anemia, unspecified; F32.9 Major depressive disorder, single episode, unspecified; R07.89 Other chest pain; K21.9 Gastro-esophageal reflux disease without esophagitis; E87.1 Hypo-osmolality and hyponatremia; G89.29 Other chronic pain; F41.0 Panic disorder [episodic paroxysmal anxiety]; Z87.891 Personal history of nicotine dependence; Z79.4 Long term (current) use of insulin; Z79.899 Other long term (current) drug therapy
CPT/HCPCS: 36415; 71045; 71275; 78582; 80048; 80053; 81001; 82550; 82553; 82805; 82962; 83036; 83880; 84484; 84703; 85025; 85379; 87116; 93005; 93010; 96361; 96372; 96374; 99284; A9540; A9558; G0378; J1200; J1650; J7030; Q9967; J1815

== ENCOUNTER 2019-09-22 15:10 | Emergency (ER) | payer SELFPAY ==
[2019-09-22 15:34] VITALS: BP 148/82
== END 2019-09-22 16:20 | disposition left against medical advice (07) ==
LOC: ED 15:10
DX: R11.0 Nausea (principal); Z53.21 Procedure and treatment not carried out due to patient leaving prior to being seen by health care provider

== ENCOUNTER 2020-01-22 17:29 | Emergency (ER) | payer OTHER ==
--- NOTE | 2020-01-22 22:13 | Emergency Department Report ---
ED General Adult HPI - General Chief complaint: Extremity Injury, Lower Stated complaint: LEG PAIN Time Seen by Provider: 01/22/20 21:42 Source: patient Mode of arrival: Ambulatory Limitations: No Limitations - History of Present Illness Initial comments: Patient is 39 years old female with history of diabetes and chronic bilateral leg pain. Patient presented to the ER complaining of leg pain for the last 3 weeks on and off. Patient stated that she had procedure done to her leg at her primary care office in January 2019 to open up her veins according to the patient report. Patient stated that because of the pain she is feeling depressed however patient denied any suicidal ideation or homicidal ideation. Patient denied any visual or auditory hallucination. Patient stated that her primary care physician referred her to a psychiatric doctor and she has been following up with him and she declined mental health assessment. - Related Data Home Medications Medication Instructions Recorded Confirmed Last Taken Tresiba 10 units SC HS 08/15/19 08/15/19 Unknown Previous Rx's Medication Instructions Recorded Last Taken Type Lispro Insulin [HumaLOG] 0 unit SUB-Q ACHS units 03/04/19 Unknown Rx oxyCODONE /ACETAMINOPHEN [Percocet 1 tab PO Q6H PRN #10 tablet 03/04/19 Unknown Rx 5/325 mg] Allergies Allergy/AdvReac Type Severity Reaction Status Date / Time aspirin Allergy Swelling Verified 05/14/19 16:43 lisinopril Allergy Swelling Verified 08/14/19 07:29 ED Review of Systems ROS: Stated complaint: LEG PAIN Other details as noted in HPI Comment: All other systems reviewed and negative Constitutional: denies: chills, fever Respiratory: denies: cough, shortness of breath Cardiovascular: denies: chest pain Gastrointestinal: denies: abdominal pain, nausea, vomiting Musculoskeletal: myalgia. denies: back pain Neurological: denies: headache, weakness, numbness, paresthesias, confusion, abnormal gait Psychiatric: depression. denies: auditory hallucinations, visual hallucinations , homicidal thoughts, suicidal thoughts ED Past Medical Hx - Past Medical History Hx Hypertension: Yes Hx Diabetes: Yes Hx Headaches / Migraines: Yes Hx Psychiatric Treatment: Yes (anxiety) Hx HIV: No Additional medical history: Uterine fibroids, anemia, blood transfusion,venous reflux disease - Surgical History Additional Surgical History: D & C. LEFT GREAT TOE SURGERY, bilateral lower venous ablations - Social History Smoking Status: Current Every Day Smoker Substance Use Type: None - Medications Home Medications: Home Medications Medication Instructions Recorded Confirmed Last Taken Type Lispro Insulin [HumaLOG] 0 unit SUB-Q ACHS units 03/04/19 08/15/19 Unknown Rx oxyCODONE /ACETAMINOPHEN [Percocet 1 tab PO Q6H PRN #10 tablet 03/04/19 08/15/19 Unknown Rx 5/325 mg] Tresiba 10 units SC HS 08/15/19 08/15/19 Unknown History ED Physical Exam - General Limitations: No Limitations General appearance: alert, in no apparent distress - Head Head exam: Present: atraumatic, normocephalic, normal inspection - Eye Eye exam: Present: normal appearance - ENT ENT exam: Present: normal exam, normal orophraynx, mucous membranes moist - Neck Neck exam: Present: normal inspection, full ROM. Absent: tenderness, meningismus, lymphadenopathy, thyromegaly - Respiratory Respiratory exam: Present: normal lung sounds bilaterally - Cardiovascular Cardiovascular Exam: Present: regular rate, normal rhythm, normal heart sounds - GI/Abdominal GI/Abdominal exam: Present: soft, normal bowel sounds. Absent: distended, tenderness, guarding, rebound, rigid, organomegaly, mass, bruit, pulsatile mass, hernia - Extremities Exam Extremities exam: Present: normal inspection, full ROM, normal capillary refill, other (Positive bilateral popliteal, tibialis posterior and dorsalis pedis pulses.). Absent: tenderness, pedal edema, joint swelling, calf tenderness - Back Exam Back exam: Present: normal inspection, full ROM. Absent: CVA tenderness (R), CVA tenderness (L) - Neurological Exam Neurological exam: Present: alert, oriented X3, CN II-XII intact, normal gait, reflexes normal. Absent: motor sensory deficit - Psychiatric Psychiatric exam: Present: normal mood, depressed. Absent: agitated, anxious, flat affect, manic, homicidal ideation, suicidal ideation - Skin Skin exam: Present: warm, intact, normal color ED Course Vital Signs 01/22/20 01/22/20 17:50 21:45 Temperature 98.7 F 98.3 F Pulse Rate 98 H 95 H Respiratory 18 18 Rate Blood Pressure 155/92 Blood Pressure 161/96 [Left] O2 Sat by Pulse 100 99 Oximetry ED Medical Decision Making - Medical Decision Making Patient is 39 years old female with history of diabetes and chronic bilateral leg pain. Patient presented to the ER complaining of leg pain for the last 3 weeks on and off. Patient stated that she had procedure done to her leg at her primary care office in January 2019 to open up her veins according to the patient report. Patient stated that because of the pain she is feeling depressed however patient denied any suicidal ideation or homicidal ideation. Patient denied any visual or auditory hallucination. Patient stated that her primary care physician referred her to a psychiatric doctor and she has been following up with him and she declined mental health assessment. On exam both peripheral pulses and lower extremities are intact and strong. Patient is asked to be referred to a vascular surgeon as an outpatient. I gave a patient is also plan to vascular to follow-up with. Patient symptoms might be from neuropathy secondary to diabetes patient given prescription for Neurontin and advised to follow-up with her primary care physician in the next 2 to 3 days and to return to the ER if she develop any new symptoms. Critical care attestation.: If time is entered above; I have spent that time in minutes in the direct care of this critically ill patient, excluding procedure time. ED Disposition Clinical Impression: Leg pain, Peripheral neuropathy, Depression Disposition: - TO HOME OR SELFCARE Is pt being admited?: No Condition: Stable Instructions: Suicide Prevention for Adults (ED), Diabetic Neuropathy (ED) Referrals: RENETTA MCNAMARA MD [Primary Care Provider] - 3-5 Days REYNOLD AGUILAR MD [Staff Physician] - 3-5 Days
[2020-01-22 22:33] LABS: BUN/Creatinine Ratio 13; Blood Urea Nitrogen 8 mg/dL (7-17); Calcium 10.4 mg/dL (8.4-10.2); Hemolysis Index 0
[2020-01-22 22:36] VITALS: BP 148/97
[2020-01-22 22:36] LABS: Basophils # (Auto) 0.1 K/mm3 (0.0-0.1); Basophils % (Auto) 0.8 % (0.0-1.8); Eosinophils # (Auto) 0.3 K/mm3 (0.0-0.4); Eosinophils % (Auto) 4.8 % (0.0-4.3); Hematocrit 23.3 % (30.3-42.9); Lymphocytes # (Auto) 2.1 K/mm3 (1.2-5.4); Lymphocytes % (Auto) 31.9 % (13.4-35.0); Mean Corpuscular HGB Conc 30 % (30-34); Monocytes # (Auto) 0.6 K/mm3 (0.0-0.8); Monocytes % (Auto) 9.5 % (0.0-7.3); Platelet Count 609 K/mm3 (140-440); Red Blood Count 4.44 M/mm3 (3.65-5.03)
[2020-01-22 22:37] LABS: Mean Corpuscular Volume 52 fl (79-97); Red Cell Distribution Width 20.3 % (13.2-15.2)
== END 2020-01-22 22:37 | disposition home or self-care (01) ==
LOC: ED 17:29
DX: E11.42 Type 2 diabetes mellitus with diabetic polyneuropathy (principal); F32.9 Major depressive disorder, single episode, unspecified; M79.605 Pain in left leg; M79.604 Pain in right leg; I10 Essential (primary) hypertension; G43.909 Migraine, unspecified, not intractable, without status migrainosus; F41.9 Anxiety disorder, unspecified; F17.200 Nicotine dependence, unspecified, uncomplicated; Z98.890 Other specified postprocedural states; Z79.899 Other long term (current) drug therapy; Z88.8 Allergy status to other drugs, medicaments and biological substances
CPT/HCPCS: 36415; 80048; 80320; 84703; 85025; G0480

== ENCOUNTER 2021-09-20 09:50 | Emergency (ER) | payer OTHER ==
[2021-09-20] MEDS ORDERED: SODIUM CHLORIDE 0.9% 1000 ML 1,000 ML IV ONE (13:42)
[2021-09-20] MEDS ORDERED: MORPHINE 4 MG/1 ML INJ IV ONE (13:42)
[2021-09-20] MEDS ORDERED: ONDANSETRON 4 MG/2 ML INJ IV ONE (13:42)
[2021-09-20 14:52] LABS: Basophils % (Auto) 0.8 % (0.0-1.8); Eosinophils # (Auto) 0.2 K/mm3 (0.0-0.4); Hematocrit 40.1 % (30.3-42.9); Hemoglobin 13.7 gm/dl (10.1-14.3); Lymphocytes # (Auto) 0.9 K/mm3 (1.2-5.4); Lymphocytes % (Auto) 17.6 % (13.4-35.0); Mean Corpuscular HGB Conc 34 % (30-34); Mean Corpuscular Volume 82 fl (79-97); Monocytes # (Auto) 0.6 K/mm3 (0.0-0.8); Monocytes % (Auto) 12.6 % (0.0-7.3); Platelet Count 444 K/mm3 (140-440); Red Cell Distribution Width 18.1 % (13.2-15.2)
[2021-09-20 15:13] LABS: BUN/Creatinine Ratio 19; Blood Urea Nitrogen 19 mg/dL (7-17); Hemolysis Index 4
[2021-09-20 15:58] LABS: Calcium > 13.0 mg/dL (8.4-10.2)
--- NOTE | 2021-09-20 16:36 | Cat Scan Report ---
CT ABDOMEN AND PELVIS WITHOUT CONTRAST HISTORY: pain COMPARISON: Chest CT on 08/15/2019 TECHNIQUE: Routine abdominal and pelvic CT exam performed without contrast. Lack of intravenous cont rast limits evaluation of the vascular and solid organs.. All CT scans at this location are performed using CT dose reduction for ALARA by means of automated exposure control. FINDINGS: CT ABDOMEN: Lung Bases: There are multiple areas of chronic cystic parenchymal scarring in both lower lungs at th e site of previous pneumonia. Liver: There is a heterogeneous attenuation pattern of the liver diffusely without appreciable discre te focal mass. Biliary: No significant abnormality. Spleen: No significant abnormality. Unenlarged. Pancreas: No significant abnormality. Adrenals: No significant abnormality. Kidneys: No significant abnormality. Lymphatics: No lymphadenopathy. Vasculature: No significant abnormality. Bowel/Peritoneum: No significant abnormality. No free air. No free fluid. Normal appendix. CT PELVIC: : No significant abnormality. Lymphatics: No lymphadenopathy. Osseous Structures: No aggressive appearing osseous lesions. Additional Findings: None IMPRESSION: 1. Heterogeneous attenuation pattern of the liver without appreciable discrete focal mass. Findings c an be seen in the setting of hepatic steatosis or acute hepatitis. 2. Multiple areas of chronic peripheral scarring in both lower lungs at the site of previous pneumoni a. Signer Name: Nabil Villavicencio MD Signed: 09/20/2021 4:31 PM Workstation Name: [email or web address]
[2021-09-20 17:53] LABS: Alanine Aminotransferase 21 units/L (7-56); Albumin 2.8 g/dL (3.9-5); BUN/Creatinine Ratio 19; Blood Urea Nitrogen 19 mg/dL (7-17); Hemolysis Index 13
[2021-09-20 18:01] LABS: Bilirubin,Urine NEG (Negative); Blood,Urine NEG (Negative); Color,Urine Yellow (Yellow); Urobilinogen,Urine < 2.0 mg/dL (<2.0)
[2021-09-20 18:04] LABS: RBC,Urine < 1.0 /HPF (0.0-6.0); WBC,Urine < 1.0 /HPF (0.0-6.0)
[2021-09-20 18:09] LABS: Calcium 12.2 mg/dL (8.4-10.2)
--- NOTE | 2021-09-20 19:17 | Emergency Department Report ---
ED Abdominal Pain HPI - General Chief Complaint: Abdominal Pain Stated Complaint: ABD PAINS Time Seen by Provider: 09/20/21 13:35 Source: patient Mode of arrival: Ambulatory Limitations: No Limitations - History of Present Illness MD Complaint: abdominal pain -: Gradual, days(s) (3) Location: diffuse Radiation: none Migration to: no migration Severity scale (0 -10): 3 Quality: cramping Consistency: intermittent Associated Symptoms: nausea - Related Data Home Medications Medication Instructions Recorded Confirmed Last Taken Tresiba 10 units SC HS 08/15/19 08/15/19 Unknown Previous Rx's Medication Instructions Recorded Last Taken Type Lispro Insulin [HumaLOG] 0 unit SUB-Q ACHS units 03/04/19 Unknown Rx oxyCODONE /ACETAMINOPHEN [Percocet 1 tab PO Q6H PRN #10 tablet 03/04/19 Unknown Rx 5/325 mg] Gabapentin 100 mg PO Q8HR #60 capsule 01/22/20 Unknown Rx traMADoL [Ultram 50 MG tab] 25 mg PO Q6HR PRN #14 tablet 09/20/21 Unknown Rx Allergies Allergy/AdvReac Type Severity Reaction Status Date / Time aspirin Allergy Swelling Verified 09/20/21 10:32 lisinopril Allergy Swelling Verified 09/20/21 10:32 acetaminophen [From Tylenol] AdvReac Unknown Verified 09/20/21 10:32 ED Review of Systems ROS: Stated complaint: ABD PAINS Other details as noted in HPI Constitutional: denies: chills, fever Eyes: denies: eye pain, eye discharge, vision change ENT: denies: ear pain, throat pain Respiratory: denies: cough, shortness of breath, wheezing Cardiovascular: denies: chest pain, palpitations Endocrine: no symptoms reported Gastrointestinal: denies: abdominal pain, nausea, diarrhea Genitourinary: denies: urgency, dysuria, discharge Musculoskeletal: denies: back pain, joint swelling, arthralgia Skin: denies: rash, lesions Neurological: denies: headache, weakness, paresthesias Psychiatric: denies: anxiety, depression Hematological/Lymphatic: denies: easy bleeding, easy bruising ED Past Medical Hx - Past Medical History Hx Hypertension: Yes Hx Diabetes: Yes Hx Headaches / Migraines: Yes Hx Psychiatric Treatment: Yes (anxiety) Hx HIV: No Additional medical history: Uterine fibroids, anemia, blood transfusion,venous reflux disease - Surgical History Additional Surgical History: D & C. LEFT GREAT TOE SURGERY, bilateral lower venous ablations - Social History Smoking Status: Current Every Day Smoker Substance Use Type: None - Medications Home Medications: Home Medications Medication Instructions Recorded Confirmed Last Taken Type Lispro Insulin [HumaLOG] 0 unit SUB-Q ACHS units 03/04/19 08/15/19 Unknown Rx oxyCODONE /ACETAMINOPHEN [Percocet 1 tab PO Q6H PRN #10 tablet 03/04/19 08/15/19 Unknown Rx 5/325 mg] Tresiba 10 units SC HS 08/15/19 08/15/19 Unknown History Gabapentin 100 mg PO Q8HR #60 capsule 01/22/20 Unknown Rx traMADoL [Ultram 50 MG tab] 25 mg PO Q6HR PRN #14 tablet 09/20/21 Unknown Rx ED Physical Exam - General Limitations: No Limitations General appearance: alert, in no apparent distress - Head Head exam: Present: atraumatic, normocephalic - Eye Eye exam: Present: normal appearance - ENT ENT exam: Present: mucous membranes moist - Neck Neck exam: Present: normal inspection - Respiratory Respiratory exam: Present: normal lung sounds bilaterally. Absent: respiratory distress - Cardiovascular Cardiovascular Exam: Present: regular rate, normal rhythm. Absent: systolic murmur, diastolic murmur, rubs, gallop - GI/Abdominal GI/Abdominal exam: Present: soft, normal bowel sounds - Extremities Exam Extremities exam: Present: normal inspection - Back Exam Back exam: Present: normal inspection - Neurological Exam Neurological exam: Present: alert, oriented X3 - Psychiatric Psychiatric exam: Present: normal affect, normal mood - Skin Skin exam: Present: warm, dry, intact, normal color. Absent: rash ED Course Vital Signs 09/20/21 10:30 Temperature 98.3 F Pulse Rate 104 H Respiratory 16 Rate Blood Pressure 144/91 [Left] O2 Sat by Pulse 99 Oximetry - Reevaluation(s) Reevaluation #1: 09/20/21 19:15 work up shwoed normal wbc , calcium elevated fludis given repat showed better calcium , pt is aware of this problem had i before, ct scan shwoed possible steatosis but pt follows with liver toumor doctor she is not aware of the name, will follow up with him pain meds given ED Medical Decision Making - Lab Data Result diagrams: 09/20/21 14:19 09/20/21 17:07 Critical care attestation.: If time is entered above; I have spent that time in minutes in the direct care of this critically ill patient, excluding procedure time. ED Disposition Clinical Impression: Abdominal pain, Hypercalcemia, Steatosis Disposition: HOME / SELF CARE / HOMELESS Is pt being admited?: No Does the pt Need Aspirin: No Condition: Stable Instructions: Abdominal Pain (ED), Hypercalcemia, Flank Pain, Adult, [id number] Prescriptions: traMADoL [Ultram 50 MG tab] 25 mg PO Q6HR PRN #14 tablet PRN Reason: Pain Referrals: RENETTA MCNAMARA MD [Primary Care Provider] - 3-5 Days
[2021-09-20 19:45] VITALS: BP 152/90
== END 2021-09-20 19:44 | disposition home or self-care (01) ==
LOC: ED 09:50
DX: R10.9 Unspecified abdominal pain (principal); E83.52 Hypercalcemia; E88.89 Other specified metabolic disorders; I10 Essential (primary) hypertension; E11.9 Type 2 diabetes mellitus without complications; G43.909 Migraine, unspecified, not intractable, without status migrainosus; F17.200 Nicotine dependence, unspecified, uncomplicated
CPT/HCPCS: 36415; 74176; 80048; 80053; 81001; 82150; 83690; 84702; 85025; 96374; 99284; J2270; J2405; J7030; Q0162

== ENCOUNTER 2021-11-06 11:29 | Emergency (ER) | payer OTHER ==
[2021-11-06] MEDS ORDERED: hydrOXYzine HCL 25 MG TAB PO ONE (11:57)
--- NOTE | 2021-11-06 11:59 | Emergency Department Report ---
ED General Adult HPI - General Chief complaint: Allergic Reaction Stated complaint: BODY ITCHING Time Seen by Provider: 11/06/21 11:44 Source: patient, RN notes reviewed, old records reviewed Mode of arrival: Ambulatory Limitations: No Limitations - History of Present Illness Initial comments: During the history and physical examination I am chaperoned by Rosey This patient is a 40-year-old female with a history of diabetes, high cholesterol, and a history of hysterectomy. She presents to the ER today with a primary complaint of diffuse pruritus for the past 2 days. She recently started rosuvastatin 2 days ago for high cholesterol. She associates her itching with reinitiation of this medication. She has been prescribed this medication in the past, but did not take it. She denies additional injuries and complaints. On review of systems, she does endorse intermittent right upper quadrant pain for months and years, reports having had a liver biopsy last year. She denies urinary symptoms. The patient reports that her partner/ at home is not experiencing pruritus. She reports pets at home which are up-to-date on vaccinations and had their flea heartworm check prevention. Her pruritus is diffuse, but mostly centered on her back and lower abdomen. -: Gradual, days(s) Location: back, abdomen Consistency: constant Improves with: none Worsens with: none Associated Symptoms: denies other symptoms - Related Data Home Medications Medication Instructions Recorded Confirmed Last Taken Tresiba 10 units SC HS 08/15/19 08/15/19 Unknown Previous Rx's Medication Instructions Recorded Last Taken Type Lispro Insulin [HumaLOG] 0 unit SUB-Q ACHS units 03/04/19 Unknown Rx Gabapentin 100 mg PO Q8HR #60 capsule 01/22/20 Unknown Rx Famotidine [Pepcid] 20 mg PO BID #10 tablet 11/06/21 Unknown Rx diphenhydrAMINE [Benadryl] 50 mg PO Q8HR PRN #20 capsule 11/06/21 Unknown Rx hydrOXYzine HCL [Atarax] 25 mg PO Q6HR PRN #30 tablet 11/06/21 Unknown Rx oxyCODONE [roxiCODONE] 5 mg PO Q6HR PRN #10 tablet 11/06/21 Unknown Rx Allergies Allergy/AdvReac Type Severity Reaction Status Date / Time aspirin Allergy Swelling Verified 09/20/21 10:32 lisinopril Allergy Swelling Verified 09/20/21 10:32 acetaminophen [From Tylenol] AdvReac Unknown Verified 09/20/21 10:32 ED Review of Systems ROS: Stated complaint: BODY ITCHING Other details as noted in HPI Comment: All other systems reviewed and negative Gastrointestinal: abdominal pain (Right upper quadrant abdominal pain) Skin: pruritus ED Past Medical Hx - Past Medical History Hx Hypertension: Yes Hx Diabetes: Yes Hx Headaches / Migraines: Yes Hx Psychiatric Treatment: Yes (anxiety) Hx HIV: No Additional medical history: Uterine fibroids, anemia, blood transfusion,venous reflux disease - Surgical History Additional Surgical History: D & C. LEFT GREAT TOE SURGERY, bilateral lower venous ablations - Social History Smoking Status: Current Every Day Smoker Substance Use Type: None - Medications Home Medications: Home Medications Medication Instructions Recorded Confirmed Last Taken Type Lispro Insulin [HumaLOG] 0 unit SUB-Q ACHS units 03/04/19 08/15/19 Unknown Rx Tresiba 10 units SC HS 08/15/19 08/15/19 Unknown History Gabapentin 100 mg PO Q8HR #60 capsule 01/22/20 Unknown Rx Famotidine [Pepcid] 20 mg PO BID #10 tablet 11/06/21 Unknown Rx diphenhydrAMINE [Benadryl] 50 mg PO Q8HR PRN #20 capsule 11/06/21 Unknown Rx hydrOXYzine HCL [Atarax] 25 mg PO Q6HR PRN #30 tablet 11/06/21 Unknown Rx oxyCODONE [roxiCODONE] 5 mg PO Q6HR PRN #10 tablet 11/06/21 Unknown Rx ED Physical Exam - General Limitations: No Limitations General appearance: alert, in no apparent distress - Head Head exam: Present: atraumatic, normocephalic - Eye Eye exam: Present: normal appearance, EOMI. Absent: nystagmus - ENT ENT exam: Present: normal exam, normal orophraynx, mucous membranes moist, normal external ear exam - Neck Neck exam: Present: normal inspection, full ROM. Absent: tenderness, meningismus - Respiratory Respiratory exam: Present: normal lung sounds bilaterally. Absent: respiratory distress, rhonchi, stridor, decreased breath sounds - Cardiovascular Cardiovascular Exam: Present: regular rate, normal rhythm, normal heart sounds. Absent: bradycardia, tachycardia, irregular rhythm, systolic murmur, diastolic murmur, rubs, gallop - GI/Abdominal GI/Abdominal exam: Present: soft, tenderness, other (There is right upper quadrant tenderness.). Absent: distended, guarding, rebound, rigid, pulsatile mass - Extremities Exam Extremities exam: Present: normal inspection, full ROM, other (2+ pulses noted in the bilateral upper and lower extremities. There is no palpable cord. negative Homans sign. Muscular compartments are soft. The pelvis is stable.). Absent: pedal edema, calf tenderness - Back Exam Back exam: Present: normal inspection, full ROM. Absent: tenderness, CVA tenderness (R), CVA tenderness (L), paraspinal tenderness, vertebral tenderness - Neurological Exam Neurological exam: Present: alert, oriented X3, normal gait, other (No facial droop. Tongue midline. Extraocular movements intact bilaterally. Facial se nsation intact to light touch in V1, V2, V3 distribution bilaterally. 5 and a 5 strength in 4 extremities. Sensation intact to light touch in 4 extremities.). Absent: motor sensory deficit - Psychiatric Psychiatric exam: Present: normal affect, normal mood - Skin Skin exam: Present: warm, dry, intact, normal color. Absent: rash ED Course Vital Signs 11/06/21 11:37 Temperature 98.2 F Pulse Rate 81 Respiratory 18 Rate Blood Pressure 152/100 O2 Sat by Pulse 100 Oximetry - Reevaluation(s) Reevaluation #1: 11/06/21 12:35 Differential diagnosis, including but not limited to: Allergic reaction, hepatitis fatty liver, biliary colic Assessment and plan: 40-year-old female who is not jaundiced with diffuse prur itus, no scleral icterus, and mild right upper quadrant tenderness with negative Galarza sign. Patient is reportedly allergic to NSAIDs/aspirin and/or acetaminophen. We will clarify her allergies. She is protecting her airway. She is not stridulous. She will be medicated with Atarax. Obtain appropriate laboratory studies and right upper quadrant ultrasound. Reassess. Discussed this with the patient. She is agreeable to this plan of care peer 11/06/21 13:46 Right upper quadrant ultrasound reviewed and appreciated. I have also discussed this with the interpreting radiologist. We will obtain repeat ultrasound, with targeted IVC images. Given young age, prefer to avoid CT scan of the abdomen pelvis, as this patient has had multiple CT scans in the past. However, if repeat ultrasound nondiagnostic, will consider CT scan of the abdomen pelvis. I updated the patient on her findings and her plan of care. She endorsed understanding. Of note, laboratory studies have not been drawn. [place] has reached out to lab supervisor [employer], who will now coordinate with phlebotomists to obtain laboratory studies. Please note that this delay in acquisition of laboratory studies has led to a delay in disposition. 11/06/21 18:04 CT scan abdomen pelvis reviewed and appreciated. No IVC thrombus is noted. Patient does appear to have abnormal liver architecture. Patient has had a chronically elevated alk phos since 2019. She is also had elevated liver tests in the past. She states that she feels improved. Contacted gastroenterology on-call, Dr. Manzano We discussed the patient's history, physical, laboratory studies and imaging studies from today, and also reviewed her prior imaging studies and laboratory studies. We agree that the patient should be suitable to follow-up as an outpatient for definitive evaluation and management. Dr. Manzano has taken down the patient's name and birthdate, and will contact his office staff to have the patient follow-up as an outpatient shortly. I extensively discussed this with the patient and her with her permission. All questions have been answered. Return precautions are reviewed. Please note that this patient had a prolonged stay here in the emergency room, because she required multiple imaging studies, and multiple laboratory studies. Nevertheless, on her final reassessment, she is suitable for discharge with close outpatient follow-up with GI. Reevaluation #2: 11/06/21 18:19 Patient reports having had a biopsy for the liver at [facility] 6 months ago, and believes that the path was negative/benign Dr. Manzano is able to obtain biopsy results, and biopsy reads as follows Special stains are negative for fungal or acid-fast organisms. Trichrome stain highlights areas with mild portal fibrosis and fibrous scarring within areas of granulomatous inflammation. Iron stain shows mild deposition of iron in Kupffer cells. The histologic findings of granulomatous hepatitis (see microscopic description below) has many associated etiologies including infection, drug-induced liver injury and sarcoidosis. I do not see classic florid duct lesions, nevertheless correlation with clinical findings as well as serology studies to exclude biliary primary cholangitis, which is less likely, is also suggested. There is no evidence of malignancy. It appears that serology is not sent for PBC, GI to send that as an outpatient follow-up. 11/06/21 18:50 ED Medical Decision Making - Lab Data Result diagrams: 11/06/21 14:30 11/06/21 14:30 Vital Signs 11/06/21 11:37 Temperature 98.2 F Pulse Rate 81 Respiratory 18 Rate Blood Pressure 152/100 O2 Sat by Pulse 100 Oximetry - Radiology Data Radiology results: report reviewed, image reviewed ULTRASOUND ABDOMEN, LIMITED (RIGHT UPPER QUADRANT) INDICATION / CLINICAL INFORM ATION: ruq pain. COMPARISON: CT abdomen and pelvis 09/20/2021. FINDINGS: PANCREAS: Visualized portion shows no significant abnormality. LIVER: Heterogeneous echotexture measuring 20 cm in cephalocaudad dimension. GALLBLADDER: Gallbladder sludge. BILE DUCTS: No significant abnormality. Common bile duct measures 5 mm. FREE FLUID: None. ADDITIONAL FINDINGS: Small, eccentrically located echogenic focus measuring approximately 0.9 x 0.6 cm within the distal IVC. Color flow is noted proximal and distal to the focus. IMPRESSION: 1. Hepatomegaly with nonspecific heterogeneous echotexture of the liver. 2. Gallbladder sludge. 3. Small, approximately 0.9 x 0.6 cm echogenic nonocclusive focus eccentrically located within the distal IVC, of indeterminate clinical significance. This could reflect a small, eccentrically located nonocclusive thrombus or may even be artifactual in etiology. Clinical correlation is recommended. There was no definite abnormality of this location on the noncontrast CT from August 2021. Signer Name: Hussain Vásquez MD Signed: 11/06/2021 12:18 PM Workstation Name: [id number] US abdomen limited INDICATION / CLINICAL INFORMATION: ruq pain, abnormal IVC. COMPARISON: Abdominal ultrasound performed earlier same day FINDINGS: Small, peripherally located echogenic focus within the distal IVC measures 0.7 x 0.4 x 0.8 cm. This lesion demonstrates no internal vascular flow. There is mild narrowing at IVC at this level but the IVC is widely patent with proximal and distal to this focus. Multiple cine clips are taken through this region demonstrate no movement of this echogenic peripheral focus. IMPRESSION: 1. Small, peripherally located echogenic focus within the distal IVC again demonstrated. 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 If further imaging evaluation is warranted, MRI or CT abdomen and pelvis with IV contrast timing targeted at the IVC is recommended. Vascular surgery consultation may be of benefit in regard to further imaging evaluation. Signer Name: Hussain Vásquez MD Signed: 11/06/2021 1:49 PM Workstation Name: [email or web address] CT ABDOMEN AND PELVIS WITH CONTRAST INDICATION / CLINICAL INFORMATION: ruq pain IVC thrombus. TECHNIQUE: Axial CT images were obtained through the abdomen and pelvis after IV contrast. All CT scans at this location are performed using CT dose reduction for ALARA by means of automated exposure control. COMPARISON: Right upper quadrant ultrasound earlier same day, CT abdomen and pelvis 09/20/2021 FINDINGS: LOWER CHEST: Areas of parenchymal scarring and cystic change within the bilateral lower lobes, similar to reference exam. LIVER: Liver is enlarged and 24 cm in cephalocaudad dimension with heterogeneous attenuation throughout. There is similar heterogeneous enhancement pattern of the spleen with multiple oval hypoattenuating areas throughout the spleen. GALLBLADDER: Moderately distended with gallbladder sludge. PANCREAS: No significant abnormality. SPLEEN: No significant abnormality. ADRENALS: No significant abnormality. RIGHT KIDNEY / URETER: No significant abnormality. LEFT KIDNEY / URETER: No significant abnormality. STOMACH / SMALL BOWEL: No significant abnormality. COLON: No significant abnormality. APPENDIX: No significant abnormality. PERITONEUM: No free fluid or discrete mass. LYMPH NODES: Few mildly prominent retroperitoneal lymph nodes with largest noted within the periaortic region measuring approximately 1.2 cm in diameter. AORTA / ARTERIES/ VEINS: No significant abnormality. URINARY BLADDER: No significant abnormality. REPRODUCTIVE ORGANS: No significant abnormality. ADDITIONAL FINDINGS: None. SKELETAL SYSTEM: No significant abnormality. IMPRESSION: 1. Abnormal heterogeneous enhancement pattern of the liver, nonspecific. Liver is enlarged and demonstrates a slightly nodular contour, which can be seen in setting of hepatic cirrhosis. Additional consideration should include acute or chronic hepatitis. Correlation with liver function tests is recommended. 2. Abnormal enhancement pattern with multiple hypodense nodules of the spleen, nonspecific and may be related to contrast timing. 3. Multiple mildly prominent gastrohepatic lymph nodes which are not enlarged by CT criteria. There are a few mildly prominent retroperitoneal lymph nodes with largest node in the periaortic region as detailed above. 4. No filling defect noted within the IVC to suggest definite evidence of intraluminal thrombus. There is narrowing of the IVC within its intrahepatic course, which may be attributable to the caudate lobe hypertrophy. 5. Moderate distention of the gallbladder with gallbladder sludge. No gallbladder wall thickening or pericholecystic edema. Signer Name: Hussain Vásquez MD Signed: 11/06/2021 4:25 PM Workstation Name: [email or web address] Critical care attestation.: If time is entered above; I have spent that time in minutes in the direct care of this critically ill patient, excluding procedure time. ED Disposition Clinical Impression: Pruritus, Right upper quadrant abdominal pain, History of hyperlipidemia, Abnormal LFTs (liver function tests), Abnormal liver CT, Abnormal ultrasound of liver, Intra-abdominal lymphadenopathy Disposition: 01 HOME / SELF CARE / HOMELESS Is pt being admited?: No Does the pt Need Aspirin: No Condition: Good Instructions: Liver Function Tests, Lymphadenopathy, Abdominal Pain, Adult, [id number] Additional Instructions: Please take the Atarax and Benadryl as needed for itching. Recommend that patient discontinue rosuvastatin. Ultrasound and CT scan of the abdomen pelvis demonstrated nonspecific abnormal findings, which will require follow-up with your outpatient primary care doctor or health education director. Patient should have her primary care physician or health education director contact medical records department, and obtain copies of laboratory studies and radiology studies to follow-up on nonemergent incidental abnormal findings. It is very important to closely follow-up with to rule out cancer, tumor, malignancy. Patient may take the prescribed pain medication as needed and directed. Do not take metformin medication for the next 2 days, if patient takes this medication. Please return to the emergency room right away with new pain, worsened pain, migration of pain, projectile vomiting, change in mental status, confusion, inability tolerate liquid feeds, new, worsened or different symptoms not present on the initial emergency room evaluation Do not consume alcohol, or take Tylenol/acetaminophen. When taking the oxycodone for pain, do not drive, consume alcohol, or make important decisions, this medication is sedating, and may be habit-forming, so use it sparingly and with caution. Prescriptions: hydrOXYzine HCL [Atarax] 25 mg PO Q6HR PRN #30 tablet PRN Reason: Itching diphenhydrAMINE [Benadryl] 50 mg PO Q8HR PRN #20 capsule PRN Reason: Allergic Reaction Famotidine [Pepcid] 20 mg PO BID #10 tablet oxyCODONE [roxiCODONE] 5 mg PO Q6HR PRN #10 tablet PRN Reason: Pain Referrals: [facility] [Provider Group] - 3-5 Days [facility] [Provider Group] - 3-5 Days REYNOLD MANZANO MD [Staff Physician] - 3-5 Days Forms: Work/School Release Form(ED)
--- NOTE | 2021-11-06 13:22 | Ultrasound Report ---
ULTRASOUND ABDOMEN, LIMITED (RIGHT UPPER QUADRANT) INDICATION / CLINICAL INFORMATION: ruq pain. COMPARISON: CT abdomen and pelvis 09/20/2021. FINDINGS: PANCREAS: Visualized portion shows no significant abnormality. LIVER: Heterogeneous echotexture measuring 20 cm in cephalocaudad dimension. GALLBLADDER: Gallbladder sludge. BILE DUCTS: No significant abnormality. Common bile duct measures 5 mm. FREE FLUID: None. ADDITIONAL FINDINGS: Small, eccentrically located echogenic focus measuring approximately 0.9 x 0.6 c m within the distal IVC. Color flow is noted proximal and distal to the focus. IMPRESSION: 1. Hepatomegaly with nonspecific heterogeneous echotexture of the liver. 2. Gallbladder sludge. 3. Small, approximately 0.9 x 0.6 cm echogenic nonocclusive focus eccentrically located within the d istal IVC, of indeterminate clinical significance. This could reflect a small, eccentrically located nonocclusive thrombus or may even be artifactual in etiology. Clinical correlation is recommended. Th ere was no definite abnormality of this location on the noncontrast CT from August 2021. Signer Name: Hussain Vásquez MD Signed: 11/06/2021 1:18 PM Workstation Name: [id number]
--- NOTE | 2021-11-06 14:53 | Ultrasound Report ---
US abdomen limited INDICATION / CLINICAL INFORMATION: ruq pain, abnormal IVC. COMPARISON: Abdominal ultrasound performed earlier same day FINDINGS: Small, peripherally located echogenic focus within the distal IVC measures 0.7 x 0.4 x 0.8 cm. This l esion demonstrates no internal vascular flow. There is mild narrowing at IVC at this level but the IV C is widely patent with proximal and distal to this focus. Multiple cine clips are taken through this region demonstrate no movement of this echogenic peripheral focus. IMPRESSION: 1. Small, peripherally located echogenic focus within the distal IVC again demonstrated. 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 If further imaging evaluation is warranted, MRI or CT abdomen and pelvis with IV contrast timing targeted at th e IVC is recommended. Vascular surgery consultation may be of benefit in regard to further imaging ev aluation. Signer Name: Hussain Vásquez MD Signed: 11/06/2021 2:49 PM Workstation Name: [id number]
[2021-11-06] MEDS ORDERED: LACTATED RINGERS 1,000 ML IV ONE (15:03)
[2021-11-06] MEDS ORDERED: diphenhydrAMINE 50 MG/ML VIAL IV ONE (15:16)
[2021-11-06] MEDS ORDERED: FAMOTIDINE 20 MG/2 ML INJ IV ONE (15:16)
[2021-11-06 15:28] LABS: Alanine Aminotransferase 51 units/L (7-56); Albumin 2.9 g/dL (3.9-5); BUN/Creatinine Ratio 15; Blood Urea Nitrogen 9 mg/dL (7-17); Hemolysis Index 3
[2021-11-06 15:38] LABS: INR 0.81 (0.87-1.13)
[2021-11-06 15:39] LABS: Partial Thromboplastin Time 37.7 Sec. (24.2-36.6)
[2021-11-06 15:47] LABS: Hematocrit 38.1 % (30.3-42.9); Hemoglobin 12.5 gm/dl (10.1-14.3); Mean Corpuscular HGB Conc 33 % (30-34); Mean Corpuscular Volume 83 fl (79-97); Platelet Count 376 K/mm3 (140-440); Red Blood Count 4.58 M/mm3 (3.65-5.03); Red Cell Distribution Width 16.7 % (13.2-15.2)
[2021-11-06 16:06] LABS: Hepatitis B Surface Antigen Non-Reactive (Negative); Hepatitis C Virus Antibody Non-Reactive (NonReactive)
[2021-11-06 16:47] LABS: Total Cells Counted 100
[2021-11-06 16:49] LABS: Anisocytosis 1+; Basophils % (Manual) 0 % (0.0-1.8); Large Platelets Few; Platelet Estimate Consistent w Auto; Poikilocytosis 1+; Target Cells 1+
--- NOTE | 2021-11-06 17:29 | Cat Scan Report ---
CT ABDOMEN AND PELVIS WITH CONTRAST INDICATION / CLINICAL INFORMATION: ruq pain IVC thrombus. TECHNIQUE: Axial CT images were obtained through the abdomen and pelvis after IV contrast. All CT sc ans at this location are performed using CT dose reduction for ALARA by means of automated exposure c ontrol. COMPARISON: Right upper quadrant ultrasound earlier same day, CT abdomen and pelvis 09/20/2021 FINDINGS: LOWER CHEST: Areas of parenchymal scarring and cystic change within the bilateral lower lobes, simila r to reference exam. LIVER: Liver is enlarged and 24 cm in cephalocaudad dimension with heterogeneous attenuation througho ut. There is similar heterogeneous enhancement pattern of the spleen with multiple oval hypoattenuati ng areas throughout the spleen. GALLBLADDER: Moderately distended with gallbladder sludge. PANCREAS: No significant abnormality. SPLEEN: No significant abnormality. ADRENALS: No significant abnormality. RIGHT KIDNEY / URETER: No significant abnormality. LEFT KIDNEY / URETER: No significant abnormality. STOMACH / SMALL BOWEL: No significant abnormality. COLON: No significant abnormality. APPENDIX: No significant abnormality. PERITONEUM: No free fluid or discrete mass. LYMPH NODES: Few mildly prominent retroperitoneal lymph nodes with largest noted within the periaorti c region measuring approximately 1.2 cm in diameter. AORTA / ARTERIES/ VEINS: No significant abnormality. URINARY BLADDER: No significant abnormality. REPRODUCTIVE ORGANS: No significant abnormality. ADDITIONAL FINDINGS: None. SKELETAL SYSTEM: No significant abnormality. IMPRESSION: 1. Abnormal heterogeneous enhancement pattern of the liver, nonspecific. Liver is enlarged and demon strates a slightly nodular contour, which can be seen in setting of hepatic cirrhosis. Additional con sideration should include acute or chronic hepatitis. Correlation with liver function tests is recomm ended. 2. Abnormal enhancement pattern with multiple hypodense nodules of the spleen, nonspecific and may b e related to contrast timing. 3. Multiple mildly prominent gastrohepatic lymph nodes which are not enlarged by CT criteria. There are a few mildly prominent retroperitoneal lymph nodes with largest node in the periaortic region as detailed above. 4. No filling defect noted within the IVC to suggest definite evidence of intraluminal thrombus. The re is narrowing of the IVC within its intrahepatic course, which may be attributable to the caudate l obe hypertrophy. 5. Moderate distention of the gallbladder with gallbladder sludge. No gallbladder wall thickening or pericholecystic edema. Signer Name: Hussain Vásquez MD Signed: 11/06/2021 5:25 PM Workstation Name: [id number]
[2021-11-06 18:51] VITALS: BP 147/93
== END 2021-11-06 18:51 | disposition home or self-care (01) ==
LOC: ED 11:29
DX: R10.10 Upper abdominal pain, unspecified (principal); L29.9 Pruritus, unspecified; E78.5 Hyperlipidemia, unspecified; R59.1 Generalized enlarged lymph nodes; R93.2 Abnormal findings on diagnostic imaging of liver and biliary tract; I10 Essential (primary) hypertension; E11.9 Type 2 diabetes mellitus without complications; G43.909 Migraine, unspecified, not intractable, without status migrainosus; Z79.899 Other long term (current) drug therapy; Z98.890 Other specified postprocedural states; Z91.09 Other allergy status, other than to drugs and biological substances; F17.200 Nicotine dependence, unspecified, uncomplicated
CPT/HCPCS: 36415; 74177; 76705; 80053; 80074; 82550; 85007; 85025; 85610; 85730; 96361; 96374; 96375; 99284; J1200; J3490; J7120; Q0177; Q9967; 80320; G0480

== ENCOUNTER 2022-03-31 12:32 | Emergency (ER) | payer OTHER ==
[2022-03-31 14:01] VITALS: BP 136/73
--- NOTE | 2022-03-31 14:50 | XRay Report ---
Left hand 2 views INDICATION: Injury FINDINGS: Carpal bone alignment appears normal. MCP joints and IP joints appear normal. No displaced fracture is definitely seen. No erosive or destructive change Signer Name: Avery Barros MD Signed: 03/31/2022 2:46 PM Workstation Name: [employer]
--- NOTE | 2022-03-31 14:51 | XRay Report ---
Bilateral knees INDICATION: Knee pain FINDINGS: Tricompartmental degenerative change in bilateral knees with joint space narrowing most sig nificant medial compartment and patellofemoral joint bilaterally. No acute fracture. No large effusio n Signer Name: Avery Barros MD Signed: 03/31/2022 2:46 PM Workstation Name: [email or web address]
--- NOTE | 2022-03-31 14:53 | XRay Report ---
RIGHT WRIST 2 VIEWS INDICATION / CLINICAL INFORMATION: Injury with right wrist pain. COMPARISON: None available. FINDINGS: BONES / JOINT(S): There are mild degenerative changes involving the radiocarpal joint. There is no ev idence of acute fracture or subluxation. SOFT TISSUES: No significant abnormality. ADDITIONAL FINDINGS: None. IMPRESSION: No acute findings. Signer Name: Misbah Tracy MD Signed: 03/31/2022 2:49 PM Workstation Name: [email or web address]
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
== END 2022-03-31 18:37 | disposition home or self-care (01) ==
LOC: ED 12:32
DX: S60.211A Contusion of right wrist, initial encounter (principal); M25.562 Pain in left knee; M25.561 Pain in right knee; I10 Essential (primary) hypertension; E11.9 Type 2 diabetes mellitus without complications; K21.9 Gastro-esophageal reflux disease without esophagitis; M19.90 Unspecified osteoarthritis, unspecified site; G43.909 Migraine, unspecified, not intractable, without status migrainosus; F41.9 Anxiety disorder, unspecified; F17.200 Nicotine dependence, unspecified, uncomplicated; Z91.09 Other allergy status, other than to drugs and biological substances; Z79.899 Other long term (current) drug therapy; W19.XXXA Unspecified fall, initial encounter; Y93.89 Activity, other specified; Y92.89 Other specified places as the place of occurrence of the external cause; Y99.8 Other external cause status
CPT/HCPCS: 99283